=== PATIENT | female | born 1975 | race African-American/Black ===

== ENCOUNTER 2019-09-26 08:14 | Outpatient (CLI) | payer BC, SELFPAY ==
--- NOTE | ~2019-09-26 | MR_ITS ---
EXAMINATION: MR cervical spine wo/w con DATE: 09/26/2019 10:31 INDICATION: Postlaminectomy syndrome. Cervical spondylosis. Paresthesias of skin. TECHNIQUE: Magnetic resonance imaging (MRI) of the cervical spine was performed without and with 20 m L MultiHance intravenous contrast. Sequences included sagittal and axial T2-weighted FSE, sagittal ST IR FSE, and sagittal and axial T1-weighted FSE. Postcontrast sequences included sagittal and axial T1 -weighted FS FSE. COMPARISON: None FINDINGS: There is 2 mm retrolisthesis of C2 on C3, C4 on C5, and C5 on C6. Vertebral body heights ar e normal. There is mildly decreased disc height at C4-C5 and moderately decreased disc height at C5-C 6. There are multiple lesions of increased T2-weighted signal intensity in the spinal cord from C2 to C5, right worse than left, consistent with myelomalacia. There is likely ossification of posterior l ongitudinal ligament from C2 to C6. There are laminectomies from C3 to C6. Metal artifact posterior t o the lateral masses from C3 to C6 are likely changes of posterior fusion procedure with lateral mass screws. The following disc levels are specifically discussed: C2-C3: The disc is bulging. There is mild bilateral uncovertebral joint osteoarthritis. There is mild bilateral facet joint osteoarthritis. There is no neural foraminal stenosis. There is mild central c anal stenosis. C3-C4: There is a central extrusion. There is mild bilateral uncovertebral joint osteoarthritis. Ther e is no facet joint hypertrophy. There is no neural foraminal stenosis. There is mild central canal s tenosis with posterior decompression. C4-C5: The disc is bulging. There is moderate right and severe left uncovertebral joint osteoarthriti s. There is mild bilateral facet joint hypertrophy. There is mild bilateral neural foraminal stenosis . There is mild central canal stenosis with posterior decompression. C5-C6: The disc is bulging. There is moderate bilateral uncovertebral joint osteoarthritis. There is mild bilateral facet joint hypertrophy. There is mild left neural foraminal stenosis. There is mild c entral canal stenosis with posterior decompression. C6-C7: The disc is bulging. There is mild bilateral uncovertebral joint osteoarthritis. There is mild right and moderate left facet joint hypertrophy. There is mild bilateral neural foraminal stenosis. There is mild central canal stenosis. C7-T1: The disc does not extend beyond the endplate margin. There is no uncovertebral joint osteoarth ritis. There is mild bilateral facet joint osteoarthritis. There is no neural foraminal stenosis. The re is no central canal stenosis. IMPRESSION: 1. Multifocal myelomalacia in cervical spinal cord. 2. Moderate cervical spondylosis. 3. Metal artifact posterior to the lateral masses from C3 to C6 that may be changes of posterior fusi on procedure. Reviewed, dictated and finalized at location A. IMPRESSION: 1. Multifocal myelomalacia in cervical spinal cord. 2. Moderate cervical spondylosis. 3. Metal artifact posterior to the lateral masses from C3 to C6 that may be marcus nges of posterior fusion procedure.
[2019-09-26 09:48] LABS: Estimated Glomerular Filt Rate > 60
== END 2019-09-26 08:15 | disposition home or self-care (01) ==
PROVIDERS: PCP Family Medicine
DX: M96.1 Postlaminectomy syndrome, not elsewhere classified (principal); M51.16 Intervertebral disc disorders with radiculopathy, lumbar region; R20.2 Paresthesia of skin; M47.816 Spondylosis without myelopathy or radiculopathy, lumbar region; M47.817 Spondylosis without myelopathy or radiculopathy, lumbosacral region; M50.123 Cervical disc disorder at C6-C7 level with radiculopathy; M19.011 Primary osteoarthritis, right shoulder; G95.89 Other specified diseases of spinal cord; M47.812 Spondylosis without myelopathy or radiculopathy, cervical region; Z98.1 Arthrodesis status
CPT/HCPCS: 36415; 72156; A9577

== ENCOUNTER 2019-09-28 08:14 | Outpatient (CLI) | payer BC, SELFPAY ==
--- NOTE | ~2019-09-28 | MR_ITS ---
EXAMINATION: MR lumbar spine wo/w con EXAM DATE: 09/28/2019 09:40 INDICATION: Postlaminectomy syndrome. Low back pain. Difficulty walking. Right-sided spasms. TECHNIQUE: Multi-sequential, multiplanar MR images of the lumbar spine were obtained without contrast . Sagittal T1, T2, T2 fat saturation images. Axial T2 weighted images. Axial T1 weighted sequence. Patient was then injected with 20 mL Multihance intravenous contrast and reimaged. Postcontrast axi al and sagittal T1-weighted fat saturation sequences were obtained. There are no prior studies for co mparison. FINDINGS: Moderate disc disease at L4-5, mild to moderate at L1-2 and L5-S1. There are no areas of ab normal enhancement on the post contrast images. There is a 7 mm sclerotic focus in T2, probably bone island. Endplate degenerative signal change at L4-5. There is 5 mm retrolisthesis L5 on S1. The conus medullaris terminates at the L1 level and has normal signal intensity and morphology. Paraspinal so ft tissue is unremarkable. Level by level evaluation: T12-L1: Disc does not extend beyond the endplate margin. Facet arthropathy: Mild to moderate left, mild right. Neural foraminal stenosis: Mild to moderate left. Central canal stenosis: No stenosis. L1-L2: There is a mild diffuse disc bulge. Facet arthropathy: Mild to moderate. Neural foraminal stenosis: Mild bilateral. Central canal stenosis: Mild. L2-L3: There is a minimal diffuse disc bulge. Facet arthropathy: Mild to moderate. Neural foraminal stenosis: No stenosis. Central canal stenosis: No stenosis. L3-L4: There is a mild to moderate diffuse disc bulge. Facet arthropathy: Moderate bilateral. Neural foraminal stenosis: Mild to moderate left, mild right. Central canal stenosis: Mild to moderate. L4-L5: There is a large diffuse disc bulge with superimposed large central extrusion, inferior migrat ion. Facet arthropathy: Moderate. Neural foraminal stenosis: Moderate bilateral. Central canal stenosis: Moderate. Some bilateral lateral recess narrowing. L5-S1: There is a large diffuse disc bulge with superimposed left central extrusion. Facet arthropathy: Moderate left, mild to moderate right. Neural foraminal stenosis: Moderate to severe bilateral, right greater than left. Central canal stenosis: Mild to moderate. IMPRESSION: 1. Lower lumbar spondylosis, with neural foramen most narrowed at L5-S1. 2. Large lower lumbar disc bulges and sizable L4-5 extrusion. Reviewed, dictated and finalized at location A.
== END 2019-09-28 08:15 | disposition home or self-care (01) ==
PROVIDERS: PCP Family Medicine
DX: M96.1 Postlaminectomy syndrome, not elsewhere classified (principal); M51.16 Intervertebral disc disorders with radiculopathy, lumbar region; R20.2 Paresthesia of skin; M47.816 Spondylosis without myelopathy or radiculopathy, lumbar region; M47.817 Spondylosis without myelopathy or radiculopathy, lumbosacral region
CPT/HCPCS: 72158; A9577

== ENCOUNTER 2020-02-22 10:08 | Emergency (ER) | payer BC, SELFPAY ==
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
[2020-02-22 10:19] VITALS: BP 141/83; PULSE 65; RESP 16; TEMP 36.9; O2SAT 99
--- NOTE | 2020-02-22 10:53 | PC.NURSE ---
wound cleansed gently with NS , silvadene applied (would not scan) non stick dressing applied with small kerlex and coban. pt continues to deny pain. wound care instructions given.
== END 2020-02-22 10:58 | disposition home or self-care (01) ==
PROVIDERS: Emergency Provider Nurse Practitioner Family
DX: T23.211A Burn of second degree of right thumb (nail), initial encounter (principal); X19.XXXA Contact with other heat and hot substances, initial encounter; Z86.718 Personal history of other venous thrombosis and embolism; I10 Essential (primary) hypertension; Z86.711 Personal history of pulmonary embolism; E11.9 Type 2 diabetes mellitus without complications
CPT/HCPCS: 16020; 99213; A9270; G0463

== ENCOUNTER 2020-05-08 11:00 | Outpatient (RCR) | payer BC, SELFPAY ==
--- NOTE | 2020-02-09 10:04 | PTOPEVAL ---
INITIAL PHYSICAL THERAPY EVALUATION and PLAN OF CARE Thank you for referring Varsha Epperson to [facility].? Varsha is scheduled to be seen for physical therapy? 2x/week for 4 weeks. Please review, sign, date and return this plan of care MERY. I agree with and certify that the following plan of care is medically necessary. Referring Physician Date Admitting Provider: Attending Provider: Umm Maguire MD Referring Provider: *PT Outpatient Evaluation Start: 02/09/20 08:40 Freq: Status: Active Protocol: Document 02/09/20 08:30 RAFI (Rec: 02/09/20 09:55 RAFI [id number]) Therapy Assessment Status Assessment Status Assessment Status Evaluation Outpatient Past Medical History Past Medical History Source of Past Medical History Patient Neurological History Hx Other Neurological Disorders Yes: R sided weakness since spinal surgery 2017 Cardiovascular History Hx Cardiac Disorders No Significant History Respiratory History Hx Respiratory Disorders No Significant History Gastrointestinal History Hx Gastrointestinal Disorders No Significant History Genitourinary History Hx Genitourinary Disorders No Significant History Musculoskeletal History Hx Spinal Surgery Yes: cervical fusion C2-7 2018 Endocrine History Hx Endocrine Disorders No Significant History Evaluation Information Problem Diagnosis R neck pain with R UE after cervical fusion with CRPS II R UE Onset 2018 Subjective Information Varsha stated that she had Query Text:As Reported By Patient/ several years of low back and Family neck pain - Underwent C2-C7 cervical fusion for spinal cord compression. Varsha reports waking up and felt R UE paralysized on the R side. In patient rehab, home therapy and out patient therapy - combination of PT and OT since 2018 at various sites. Will have tightness in R upper trapezius, up back of neck, runs into the head - stabbing pain, increase in tightness can cause headaches. Sleeping - disturbed - difficulty getting comfortable and staying comfortable. Mornings - sore - but then gets a little better. Prolonged positioning - doesn'
--- NOTE | 2020-02-09 11:44 | OTOPEVAL ---
OCCUPATIONAL THERAPY EVALUATION REPORT 02/09/2020 Thank you for referring Varsha Epperson to [facility].? The patient is scheduled to be seen for occupational therapy? 2x/week for 4 weeks. Plan 1x/week aquatic and 1x/week land treatment. Please review, sign, date and return this plan of care MERY. I agree with and certify that the following plan of care is medically necessary. Referring Physician Date Referring Provider: Umm Maguire MD *OT Outpatient Evaluation Therapy Assessment Status Assessment Status Assessment Status Evaluation Outpatient Past Medical History Past Medical History Source of Past Medical History Patient Neurological History Hx Other Neurological Disorders Yes: R sided weakness since spinal surgery 2018 Cardiovascular History Hx Cardiac Disorders No Significant History Respiratory History Hx Respiratory Disorders No Significant History Gastrointestinal History Hx Gastrointestinal Disorders No Significant History Genitourinary History Hx Genitourinary Disorders No Significant History Musculoskeletal History Hx Spinal Surgery Yes: cervical fusion C2-7 2018 Endocrine History Hx Endocrine Disorders No Significant History Evaluation Information Problem Diagnosis R UE pain after cervical fusion with CRPS II R UE Onset 2018 Subjective Information Patient underwent C2-C7 Query Text:As Reported By Patient/ cervical fusion for spinal Family cord compression. Varsha reports waking up and felt R UE paralysed on the R side. She is s/p patient rehab, home therapy and several bouts of out patient therapy - combination of PT and OT since 2018 at various sites. She reports that she will have tightness her neck and arm with use - stabbing pain, increase in tightness and sensations of burning. Patient reports difficulties with using her right hand to open/unlock her door as she is unable to use her fingertips to do so. She also reports difficulties with using the right hand to pinch and manipulate zippers, buttons, and small objects. She states that her ability to write and type with the right had is
--- NOTE | 2020-03-15 18:03 | PTOPEVAL ---
PHYSICAL THERAPY RE-EVALUATION and UPDATED PLAN OF CARE Thank you for referring Varsha Epperson to [facility].? Varsha is scheduled to be seen for physical therapy? 2x/week for 4 weeks. Please review, sign, date and return this plan of care MERY. I agree with and certify that the following plan of care is medically necessary. Referring Physician Date Admitting Provider: Attending Provider: Umm Maguire MD Referring Provider: *PT Outpatient Evaluation Start: 02/09/20 08:40 Freq: Status: Active Protocol: Document 03/15/20 10:30 RAFI (Rec: 03/15/20 11:07 RAFI [id number]) Therapy Assessment Status Assessment Status Assessment Status Re-evaluation Evaluation Information Problem Subjective Information Varsha reports that usually Query Text:As Reported By Patient/ upon waking for the day R Family shoulder/neck pain is reduced - sometimes no pain. But as she gets up and moves around then discomfort returns. She feels the relief of discomfort with R upper trapezius and neck is 40-50% improved. She still has the numb spots. Headaches have decreased to every other day rather than every day. She feels that her shoulder complex can move easier now - that it feels looser. Pulling sensation at her incision isn't as tight either. Pain Assessment Timing of Pain Assessment Timing of Pain Assessment Assessment Pain Scale Pain Scale Used Numeric (1 - 10) Self Report Pain Assessment Posterior Neck Reported Pain Level 5 Pain Description Aching,Sharp,Tightness Pain Frequency Chronic Lowest Pain Intensity 5 Greatest Pain Intensity 8 Pain Aggravating Factors ADL's Other Pain Aggravating Factors movement - activities with R UE Pain Score Pain Score 5: Self Report Interventions Used Interventions Used By Clinicians Mobilization,Manual Therapy Techniques,Myofascial Release Cervical and Lumbar ROM Cervical ROM Cervical Flexion (0-60) 45 Query Text:Active in Degrees Cervical Extension (0-70) 15 Query Text:Active in Degrees Cervical Lateral Flexion Right (0-50) 25 Query Text:Active in Degrees Cervical Lateral Flexion Left (0-50) 25 Query Text:Active in Degrees Cervical Rotation Right (0-90)
--- NOTE | 2020-03-19 08:15 | PCOTNOTE ---
Patient cancelled today's re-evaluation and rescheduled to later this week.
--- NOTE | 2020-03-21 11:40 | OTOPEVAL ---
OCCUPATIONAL THERAPY RE-EVALUATION REPORT 03/21/2020 Varsha is making improvements with functional ROM, strength, and coordination of the right hand. Continued skilled OT indicated for continued aquatic sessions for CRPS and land sessions for strengthening and progressing fine motor activities. Due to needing an insurance authorization after 3 more visits, patient is scheduled for next week only - 1x land and 1x aquatic, then the third visit will be the re-evaluation. Will be resubmitting another progress report in about 2 weeks. Thank you for referring Varsha Epperson to [facility].? The patient is scheduled to be seen for therapy? 2x/week for 1 weeks. Please review, sign, date and return this plan of care MERY. I agree with and certify that the following plan of care is medically necessary. Referring Physician Date Attending Provider: Umm Maguire MD Referring Provider: Umm Maguire MD *OT Outpatient Re-Evaluation Evaluation Information Problem Diagnosis R UE pain after cervical fusion with CRPS II R UE Onset 2017 Subjective Information Patient reports that her right Query Text:As Reported By Patient/ forearm and hand continues to Family have burning sensation when the hand is agitated with use. She feels as though her sensation is improving in her ring finger and that her sensitivity has decreased. Functionally she states her handwriting improved from 50% normal to 75% normal. Pain Assessment Timing of Pain Assessment Timing of Pain Assessment Re-assessment Pain Scale Pain Scale Used Numeric (1 - 10) Self Report Pain Assessment Right Hand(s) Reported Pain Level 5 Pain Description Burning,Tightness Lowest Pain Intensity 0 Greatest Pain Intensity 10 Pain Score Pain Score 5: Self Report Additional Pain Score Comments Patient reports an overall reduction in the pain in her right arm/hand. She notes only one instance of her pain reaching 10/10 since beginning therapy. Interventions Used Interventions Used By Clinicians Exercise,Heat Upper Extremity Range of Motion Wrist Range of Motion Right Wrist Flexion - Active 70 Wrist Extension - Active 73 Wrist Radial Deviation - Active 25 Wrist Ulnar Deviation - Active 40 Wrist Range of Motion Comments Extension improved 13* RD improved 10* UD improved 10* (R) wrist AROM returned to normal limits Hyman
--- NOTE | 2020-04-05 16:17 | OTOPEVAL ---
OCCUPATIONAL THERAPY RE-EVALUATION REPORT 04/05/2020 Thank you for referring Varsha Epperson to [facility].?Varsha is making improvements with functional ROM, strength, and coordination of the right wrist and hand. She continues to have functional deficits due to recurring stiffness, nerve pain, and impaired sensation. Continued skilled OT indicated for continued aquatic sessions for CRPS and land sessions for strengthening and progressing fine motor activities. The patient is scheduled to be seen for therapy? 2x/week for 6 weeks. Plan 1x/week land and 1x/week aquatic sessions. Please review, sign, date and return this plan of care MERY. I agree with and certify that the following plan of care is medically necessary. Referring Physician Date Referring Provider: Umm Maguire MD *OT Outpatient Re-valuation Evaluation Information Problem Diagnosis R UE pain after cervical fusion with CRPS II R UE Onset 2017 Subjective Information Patient reports that her right Query Text:As Reported By Patient/ forearm and hand continues to Family have burning sensation when the hand is agitated with use. She feels as though her sensation is improving in her ring finger and that her sensitivity has decreased. Functionally she states her handwriting improved from 50% normal to 75% normal. She also notes improved ability to use/cut onions and peppers with a knife with the right hand. She states she feels more coordinated to use the right hand and wrist to use a spatua, tow picker and manipulate coins, and turning keys in her ignition. Pain Assessment Timing of Pain Assessment Timing of Pain Assessment Re-assessment Pain Scale Pain Scale Used Numeric (1 - 10) Self Report Pain Assessment Right Hand(s) Reported Pain Level 4 Pain Description Burning,Tightness,Tingling Lowest Pain Intensity 2 Greatest Pain Intensity 8 Pain Aggravating Factors ADL's,Exercise/Activity Pain Score Pain Score 4: Self Report Interventions Used Interventions Used By Clinicians Heat,Rest Upper Extremity Range of Motion Elbow/Forearm Range of Motion Bilateral Reason Not Measured WNL/Left,WNL/Right Elbow/Forearm Range of Motion Comments Bilat UEs are symmetrical with elbow AROM. Wrist Range of Motion Right Wrist Flexion - Active 70 Wrist Extension - Active
--- NOTE | 2020-04-05 16:47 | PTOPEVAL ---
PHYSICAL THERAPY RE-EVALUATION and UPDATED PLAN OF CARE Thank you for referring Varsha Epperson to [facility].? Varsha has made progress in PT but has not fully reached goals set. She is scheduled to be seen for physical therapy? 2x/week for 6 weeks. Please review, sign, date and return this plan of care MERY. I agree with and certify that the following plan of care is medically necessary. Referring Physician Date Admitting Provider: Attending Provider: Umm Maguire MD Referring Provider: *PT Outpatient Evaluation Start: 02/09/20 08:40 Freq: Status: Active Protocol: Document 04/05/20 14:32 RAFI (Rec: 04/05/20 15:34 RAFI [id number]) Therapy Assessment Status Assessment Status Assessment Status Re-evaluation Evaluation Information Problem Subjective Information Varsha reports during the week Query Text:As Reported By Patient/ of no PT - increase in R Family upper quadrant tightness returned. She did try to do some of the soft tissue techniques to the anterior shoulder region but not as effective. Did try supportive technique with pillows - does help as long she doesn't move . Headaches still traveling up R side of neck into frontal aspect of head then over into L ear with a popping sound. Headaches are still improved - rather 3-4 times/day, 1-2 times/day. Karina reports to tenderness at - points to long head of biceps tendon and supraspinatus tendon. Incision area posterior neck - is fine but still increase in R paraspinal cervical musculature as well as R upper trapezius musculature. Continues to perform previous HEP. Pain Assessment Timing of Pain Assessment Timing of Pain Assessment Assessment Pain Scale Pain Scale Used Numeric (1 - 10) Self Report Pain Assessment Posterior Neck Reported Pain Level 5 Lowest Pain Intensity 1 Greatest Pain Intensity 8 Pain Score Pain Score 5: Self Report Interventions Used Interventions Used By Clinicians Manual Therapy Techniques Cervical and Lumbar ROM Cervical ROM Cervical Flexion (0-60) 45 Query Text:Active in Degrees
--- NOTE | 2020-04-09 10:15 | PCPTNOTE ---
Patient cancelled due to fear of covid.
--- NOTE | 2020-04-17 11:34 | PCPTNOTE ---
Patient called & cancelled scheduled appointment this date till 04/26/2020 due to appealing insurance visits and hoping to have resolved in the next two weeks.
--- NOTE | 2020-05-09 12:48 | PCOTNOTE ---
This treatment is being continued on visit number [id number]. Please see documentation on both accounts to view progress. Completed interventions, outcomes, and problems have been marked as Inactive to facilitate the copying of the Care plan routine for recurring accounts.
== END 2020-05-09 12:42 | disposition home or self-care (01) ==
LOC: ANHPT 11:00
PROVIDERS: PCP Family Medicine; Visit Provider Physical Medicine & Rehabilitation Pain Medicine
DX: M54.2 Cervicalgia (principal)
CPT/HCPCS: 97110; 97113; 97140; 97162; 97166; 97530

== ENCOUNTER 2020-05-15 09:00 | Outpatient (RCR) | payer BC, SELFPAY ==
--- NOTE | 2020-05-09 12:48 | PCOTNOTE ---
The treatment documented on this account is a continuation of the treatment documented on visit number [id number]. Please see documentation on both accounts to view progress. The Plan of Care has been transitioned and updated within the new V#. I have addressed and agree with the discipline specific Problems, Interventions, and Goals for the current certification period. Completed interventions, outcomes, and problems have been marked as Inactive to facilitate the copying of the Care plan routine for recurring accounts.
--- NOTE | 2020-05-10 15:09 | PTOPEVAL ---
PHYSICAL THERAPY RE-EVALUATION and UPDATED PLAN OF CARE. Thank you for referring Varsha Epperson to [facility].? Varsha is scheduled to be seen for physical therapy? 2x/week for 6 weeks. Please review, sign, date and return this plan of care MERY. I agree with and certify that the following plan of care is medically necessary. Referring Physician Date Admitting Provider: Attending Provider: Umm Maguire MD Referring Provider: *PT Outpatient Evaluation Start: 05/10/20 11:06 Freq: Status: Active Protocol: Document 05/10/20 11:03 RAFI (Rec: 05/10/20 12:03 RAFI [id number]) Therapy Assessment Status Assessment Status Assessment Status Re-evaluation Evaluation Information Problem Subjective Information Varsha states that headaches Query Text:As Reported By Patient/ are worse again - having them Family on a daily basis now. Still having pulling sensation from R anterior pectoralis, into axilla region, then up back to R side of cervical incision. Sleeping has been difficult due to increase pain. Did do better with increase support of UE's when lying on back. Was able to receive some relief after treatment on Thursday, otherwise her symptoms have worsened again with the lack of PT. Pain Assessment Timing of Pain Assessment Timing of Pain Assessment Assessment Pain Scale Pain Scale Used Numeric (1 - 10) Self Report Pain Assessment Posterior Neck Reported Pain Level 8 Radicular Pain Location R upper quadrant region Pain Frequency Chronic Lowest Pain Intensity 3 Greatest Pain Intensity 10 Pain Score Pain Score 8: Self Report Interventions Used Interventions Used By Clinicians Manual Therapy Techniques Cervical and Lumbar ROM Cervical ROM Cervical Flexion (0-60) 40 Query Text:Active in Degrees Cervical Extension (0-70) 20 Query Text:Active in Degrees Cervical Lateral Flexion Right (0-50) 20 Query Text:Active in Degrees Cervical Lateral Flexion Left (0-50) 25 Query Text:Active in Degrees Cervical Rotation Right (0-90) 45 Query Text:Active in Degrees Cervical Rotation Left (0-90) 45 Query Text:Active in Degrees Posture Posture Standing Position Posture Evaluation View posterior, anterior, lateral Head/C-Spine Posture Forward Head Thoracic Spine Posture Neutral
--- NOTE | 2020-05-15 09:50 | OTOPEVAL ---
OCCUPATIONAL THERAPY RE-EVALUATION REPORT 05/15/2020 Thank you for referring Varsha Epperson to [facility].? The patient is scheduled to be seen for continued occupational therapy? 1x/week for 6 weeks. Please review, sign, date and return this plan of care MERY. I agree with and certify that the following plan of care is medically necessary. 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 She notes that her handwriting has gotten better, but she has difficulties with writing more than a paragraph and has to take breaks. She also notes that due to gaps in therapy there have been days where her pain was so limiting that she was unable to get out of bed. Pain Assessment Timing of Pain Assessment Timing of Pain Assessment Re-assessment Pain Scale Pain Scale Used Numeric (1 - 10) Self Report Pain Assessment Right Hand(s) Reported Pain Level 7 Pain Description Tightness,Tingling Pain Frequency Chronic,Continuous Lowest Pain Intensity 3 Greatest Pain Intensity 10 Posterior Neck Reported Pain Level 0 Pain Description Pulling,Tightness Pain Score Pain Score 0,7: Self Report Interventions Used Interventions Used By Clinicians Rest Upper Extremity Range of Motion Elbow/Forearm Range of Motion Right Reason Not Measured WNL/Right Wrist Range of Motion Right Wrist Flexion - Active 65 Wrist Extension - Active 70 Wrist Radial Deviation - Active 25 Wrist Ulnar Deviation - Active 35 Wrist Range of Motion Comments Wrist AROM returned to normal limits. Finger Range of Motion Right Reason Not Measured WNL/Right Thumb Range of Motion Right Reason Not Measured WNL/Right Upper Extremity Muscle Strength Testing Elbow/Forearm Right Elbow Flexion Strength 4+ Good + Elbow Extension Strength 4- Good - Forearm Pronation Strength 4 Good Forearm Supination Strength 4 Good Wrist Strength Right Wrist Flexion Strength 4 Good
--- NOTE | 2020-06-14 09:15 | PCPTNOTE ---
PHYSICAL THERAPY DISCHARGE SUMMARY Admitting Provider: Attending Provider: Umm Maguire MD Patient:Varsha Epperson Date of :1975 Varsha has not returned for any further treatments since 05/10/2020, therefore she will be discharged at this time. Patient?s initial visit was on 02/09/2020 10:00 and she had a total of 14 visits. Her visits were limited by insurance authorization. Her end of treatment status is as per 05/10/2020 re evaluation note. The goals have been partially met. Thank you for referring Varsha to [facility]. Please review, sign, date and return this discharge summary MERY. I have been updated about Varsha's current status and I agree with discharge from the above service at this time. Referring Physician Date
--- NOTE | 2020-06-19 11:35 | PCOTNOTE ---
OCCUPATIONAL THERAPY DISCHARGE NOTE 06/19/20 Attending Provider: Umm Maguire MD Patient:Varsha Epperson Date of :1975 Patient has not returned for any further treatments since 05/15/2020 due to insurance denying further treatment, therefore she will be discharged at this time. Patient?s initial visit was on 02/09/2020 and she had a total of 14 visits. The goals have been partially met. Thank you for referring this patient to [facility]. Please review, sign, date and return this discharge summary MERY. I have been updated about the patient's current status and I agree with discharge from the above service at this time. Referring Physician Date
== END 2020-06-19 13:31 | disposition home or self-care (01) ==
LOC: ANHOT 09:00
PROVIDERS: Visit Provider Physical Medicine & Rehabilitation Pain Medicine
DX: M54.2 Cervicalgia (principal)
CPT/HCPCS: 97110; 97140

== ENCOUNTER 2020-08-13 08:00 | Outpatient (RCR) | payer BC, SELFPAY ==
[2020-07-23 13:34] VITALS: BP_SYST 128
--- NOTE | 2020-07-23 13:45 | OTOPEVAL ---
OCCUPATIONAL THERAPY DISCHARGE 07/23/20 Varsha presents to outpatient OT for evaluation for cervical radiculopathy. She is familiar to this clinic as she was treated here last fall, but therapy ended due to insurance denial. Last re-evaluation was completed on May 15, 2020. Today's reassessment shows no significant changes in functional ROM or strength, with the exception of reduced active wrist extension. She has intact and functional strength of the elbow, forearm, wrist, and hand. She is also currently independent with stretching and strengthening the elbow, forearm, wrist, and hand. Residual deficits seem to stem from proximal impairments that will be addressed by PT at this clinic. Thank you for referring Varsha Epperson to [facility].? Please review, sign, date and return this D/C MERY. I agree with and certify that the following plan of care is medically necessary. Referring Physician Date Admitting Provider: Attending Provider: Lety Harris, LINDA Referring Provider: *OT Outpatient Evaluation Start: 07/23/20 12:39 Freq: Status: Active Protocol: Document 07/23/20 12:44 IVONE (Rec: 07/23/20 13:45 IVONE [email or web address]) Therapy Assessment Status Assessment Status Assessment Status Evaluation Outpatient Past Medical History Neurological History Hx Neurologic Surgery Yes Hx Other Neurological Disorders Yes: R sided weakness since spinal surgery 2018 Cardiovascular History Hx Deep Vein Thrombosis Yes Hx Hypertension Yes Respiratory History Hx Respiratory Disorders No Significant History Gastrointestinal History Hx Gastrointestinal Disorders No Significant History Genitourinary History Hx Genitourinary Disorders No Significant History Musculoskeletal History Hx Spinal Surgery Yes: cervical fusion C2-7 2018 Endocrine History Hx Endocrine Disorders No Significant History Evaluation Information Problem Diagnosis Cervical Radiculopathy Additional Evaluation Detail Radiculopathy since cervical fusion C2-7 in September of 2017 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 She reports difficulties using the right hand to write, stating that if she tries to write for long periods of time , her hand pérez and shakes. Difficulties also noted with typing as she cannot feel the keys under the fingers of her right hand; peeling potatoes;
--- NOTE | 2020-07-23 14:57 | PTOPEVAL ---
Thank you for referring Varsha Epperson to [facility].? The patient is scheduled to be seen for therapy? 2 x/week for 6 weeks. Please review, sign, date and return this plan of care MERY. I agree with and certify that the following plan of care is medically necessary. Referring Physician Date Attending Provider: Lety Harris, PA Physical Therapy Evaluation Hx Spinal Surgery Yes: cervical fusion C2-7 2018 Diagnosis cervical radiculopathy Additional Evaluation Detail She was in actue rehab after her cervical fusion due to loss of strength and sensation of right arm and leg. She has received extensive therapy to address her limitations. She has osvaldo's for home. home program for scap retraction, shoulder flex with green band Subjective Information She has been having neck and Query Text:As Reported By Patient/ right UE pain and symptoms Family since 2018. She has tightness and muscle tightness of pectoralis muscles and right shoulder muscles. She remains limited with right shoulder and range of right arm. States her right side is tight because she is not receiving myofascial release treatment. 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 She has adaptive equipment at home for ADL's. She states she is unable to tolerate her exercises due to the pain. Previous Treatments Previous Treatments For This Problem yes a few months ago Pain Assessment Timing of Pain Assessment Timing of Pain Assessment Assessment Pain Scale Pain Scale Used Numeric (1 - 10) Self Report Pain Assessment Right Neck Reported Pain Level 9 Pain Description Aching,Burning,Tightness Pain Frequency Chronic,Continuous Lowest Pain Intensity 7 Greatest Pain Intensity 10 Pain Aggravating Factors ADL's,Exercise/Activity, Lifting Pain Behaviors Anxious Right Arm(s) Reported Pain Level 9 Pain Description Aching,Burning,Tightness Radicular Pain Location right hand Pain Frequency Chronic,Continuous
[2020-08-08 11:13] VITALS: BP_SYST 130
--- NOTE | 2020-08-09 11:53 | PTOPEVAL ---
Thank you for referring Varsha Epperson to [facility].? The patient is scheduled to be seen for therapy? 2x/week for 6 weeks. Please review, sign, date and return this plan of care MERY. I agree with and certify that the following plan of care is medically necessary. Referring Physician Date Attending Provider: Lety Harris, PA *PT Outpatient Evaluation Start: 07/23/20 13:19 Freq: Status: Active Protocol: Document 08/08/20 11:13 [facility] (Rec: 08/09/20 11:52 [facility] [email or web address]) Therapy Assessment Status Assessment Status Assessment Status Progress Pain Assessment Timing of Pain Assessment Timing of Pain Assessment Re-assessment Pain Scale Pain Scale Used Numeric (1 - 10) Self Report Pain Assessment Right Neck Reported Pain Level 6 Pain Description Spasms,Tightness Pain Frequency Continuous Other Pain Description also headache 5/10 Lowest Pain Intensity 4 Greatest Pain Intensity 10 Pain Aggravating Factors ADL's,Exercise/Activity, Walking Pain Behaviors Guarding,Rigid Right Arm(s) Reported Pain Level 4 Pain Description Spasms Pain Aggravating Factors ADL's Right Shoulder(s) Reported Pain Level 4 Pain Description Tightness Pain Aggravating Factors ADL's,Exercise/Activity, Walking Right Hand(s) Reported Pain Level 4 Pain Description Tightness Pain Score Pain Score 6,4,4,4: Self Report Interventions Used Interventions Used By Clinicians Exercise,Mobilization,Manual Therapy Techniques,Myofascial Release Pain Relief Interventions Used By Exercise,Heat Patient Other Alleviating Interventions Pt reports she has a book of exercises. Cervical and Lumbar ROM Cervical ROM Cervical Flexion (0-60) 50 Query Text:Active in Degrees Cervical Extension (0-70) 10 Query Text:Active in Degrees Cervical Rotation Right (0-90) 35 Query Text:Active in Degrees Cervical Rotation Left (0-90) 30 Query Text:Active in Degrees Cervical ROM Comments No pain with motion this date but feels tightness and pressure at the bottom of the fusion. Lumbar ROM Lumbar Comments Pt is very rigid in her pelvic motion with gait and movement patterns. Upper Extremity Range of Motion Scapular/ Shoulder Range of Motion
--- NOTE | 2020-08-23 10:54 | PCPTNOTE ---
Pt sessions are on hold due to filing an appeal on the patient's behalf for denied visits.
--- NOTE | 2020-10-04 11:36 | PCPTNOTE ---
Admitting Provider: Attending Provider: Lety Harris, LINDA Patient:Varsha Epperson Date of :1975 Patient has not returned for any further treatments since 08/13/2020, therefore she will be discharged at this time. Patient?s initial visit was on 07/23/2020. She did not receive further insurance authorization despite appeals being filed. The goals have been partially met. Thank you for referring this patient to [facility]. Please review, sign, date and return this discharge summary MERY. I have been updated about the patient's current status and I agree with discharge from the above service at this time. Referring Physician Date
== END 2020-10-08 10:06 | disposition home or self-care (01) ==
LOC: ANHPT 08:00
PROVIDERS: PCP Physician Assistant; Visit Provider Physician Assistant
DX: M54.12 Radiculopathy, cervical region (principal)
CPT/HCPCS: 97110; 97140; 97163; 97166

== ENCOUNTER 2020-10-19 15:21 | Outpatient (CLI) | payer BC, SELFPAY ==
--- NOTE | ~2020-10-19 | XR_ITS ---
EXAMINATION: XR shoulder RT min 2V DATE: 10/19/2020 15:40 INDICATION: Right shoulder pain. TECHNIQUE: 4 views of right shoulder were obtained. COMPARISON: None. FINDINGS: Bone alignment is normal. No fracture. There is moderate osteoarthritis of glenohumeral cesar nt and acromioclavicular joint. There are changes of posterior fusion procedure in cervical spine. IMPRESSION: 1. Polyarticular osteoarthritis. Reviewed, dictated and finalized at location A.
== END 2020-10-19 15:22 | disposition home or self-care (01) ==
LOC: ANHIMG 15:26
PROVIDERS: PCP Physician Assistant; Visit Provider Physician Assistant
DX: M19.011 Primary osteoarthritis, right shoulder (principal)
CPT/HCPCS: 73030

== ENCOUNTER 2020-11-12 14:32 | Outpatient (CLI) | payer BC, SELFPAY ==
--- NOTE | ~2020-11-12 | US_ITS ---
EXAMINATION: US pelvic complete w TV EXAM DATE: 11/12/2020 15:41 INDICATION: Fibroid uterus. TECHNIQUE: Pelvic transabdominal and transvaginal sonogram was performed. There are multiple graysca le and Doppler images available for interpretation. There is no prior study for comparison. FINDINGS: Uterus measures 11.0 x 6.2 x 5.4 cm, with a fibroid measuring about 3 cm near the fundus. Endometrial stripe measures 10 mm, within normal limits. There are nabothian cysts. There is trace free pelvic fluid. Right adnexa: The ovary measures 5.9 x 3.2 x 3.0 cm, mildly enlarged with several cysts which are pro bably physiologic.. Ovarian vascular flow confirmed. Left adnexa: The ovary measures 2.6 x 2.1 x 2.5 cm and is morphologically normal. Ovarian vascular fl ow confirmed. IMPRESSION: 1. Single 3 cm fibroid identified. 2. Mildly enlarged right ovary probably due to physiologic cysts. Reviewed, dictated and finalized at location A.
== END 2020-11-12 14:33 | disposition home or self-care (01) ==
LOC: ANHIMG 14:35
PROVIDERS: PCP Physician Assistant; Visit Provider Physician Assistant
DX: D25.9 Leiomyoma of uterus, unspecified (principal)
CPT/HCPCS: 76830; 76856

== ENCOUNTER 2021-06-11 20:42 | Emergency (ER) | payer OTHER, SELFPAY ==
--- NOTE | ~2021-06-11 | XR_ITS ---
XR chest 2V DATE: 06/11/2021 21:01 INDICATION: Left chest pain, left arm numbness/tingling TECHNIQUE: PA and lateral views COMPARISON: None FINDINGS: Normal heart size. No hilar or mediastinal enlargement. No pulmonary infiltrate or consolidation, pleural effusion or pulmonary vascular congestion or pneumo thorax. Posterior lower cervical spine surgical fusion. Surgical clips, right upper quadrant, likely due to cholecystectomy. IVC filter device. IMPRESSION: No active cardiac pulmonary disease Reviewed, dictated and finalized at location A. RACT ADMIN
--- NOTE | 2021-06-11 20:43 | ECG_ITS ---
Measurements Intervals [place] Rate: 86 P: 66 CA: 176 QRS: 31 QRSD: 96 T: 37 QT: 355 QTc: 425 Interpretive Statements SINUS RHYTHM POSSIBLE LEFT ATRIAL ENLARGEMENT INCOMPLETE RIGHT BUNDLE BRANCH BLOCK MINIMAL Q WAVES- DIFFUSE LEADS BORDERLINE ECG Electronically Signed On 06-12-2021 6:24:32 PENSION AGENT by Caden Norwood D.O.
[2021-06-11 20:51] VITALS: BP 140/81; PULSE 94; RESP 17; TEMP 37.2; O2SAT 100
[2021-06-11 21:02] LABS: Basophils Percent Auto 0.6 % (0.2-1.2); Eosinophils Absolute Auto 0.2 K/mm3 (0-0.3); Eosinophils Percent Auto 2.7 % (0-4.4); Hematocrit 40.2 % (37.0-47.0); Hemoglobin 13.4 g/dL (12.0-15.0); Immature Granulocyte Absolute 0.02 K/mm3 (0.00-0.031); Immature Granulocyte Percent A 0.3 % (0-0.5); Lymphocytes Absolute Auto 1.35 K/mm3 (0.9-3.2); Lymphocytes Percent Auto 21.6 % (18.3-44.2); Mean Corpuscular HGB Conc 33.3 g/dl (32-36); Mean Corpuscular Hemoglobin 30.3 pg (26-34); Mean Platelet Volume 11.7 fl (7.4-10.4); Monocytes Absolute Auto 0.7 K/mm3 (0.1-0.6); Monocytes Percent Auto 11.7 % (2.6-8.5); Neutrophils Percent Auto 63.1 % (45.5-73.1); Platelet Count Result 148 k/mm3 (150-375); Red Blood Count 4.42 M/mm3 (4.2-5.4); Red Cell Distribution Width 13.4 % (11.5-14.5); White Blood Count 6.3 K/mm3 (4.5-10.0)
[2021-06-11 21:13] LABS: INR 1.4; Partial Thromboplastin Time 32.4 SECONDS (22.3-36.8); Prothrombin Time 16.6 Seconds (11.1-14.7)
[2021-06-11 21:14] LABS: Alanine Aminotransferase 28 U/L (4-35); Albumin Level 4.3 g/dL (3.5-5.1); Alkaline Phosphatase 73 U/L (38-126); Anion Gap 9 mmol/L (8-16); Aspartate Amino Transferase 35 U/L (14-36); Bilirubin,Total 0.8 mg/dL (0.2-1.3); Blood Urea Nitrogen 11 mg/dL (7-17); Calcium 8.7 mg/dL (8.4-10.2); Carbon Dioxide 26 mmol/L (22-30); Chloride 102 mmol/L (98-107); Estimated CRCL calculation 82 ml/min; Estimated Glomerular Filt Rate > 60; Glucose 133 mg/dL (65-110); Lipase 69 U/L (23-300); Potassium 3.6 mmol/L (3.4-5.0); Sodium 137 mmol/L (137-145)
[2021-06-11 21:26] LABS: Troponin I < 0.012 ng/mL (0.000-0.034)
--- NOTE | 2021-06-11 22:22 | PC.NURSE ---
Pt to the Intake desk and states Im going to leave . Pt ambulated to the exit with no difficulty
== END 2021-06-11 22:37 | disposition left against medical advice (07) ==
LOC: ANHED 22:35
PROVIDERS: Emergency Provider Emergency Medicine; PCP Physician Assistant
DX: R07.9 Chest pain, unspecified (principal)
CPT/HCPCS: 36415; 71046; 80053; 83690; 84484; 85025; 85610; 85730; 93005; 99199

== ENCOUNTER 2021-06-19 13:08 | Emergency (ER) | payer OTHER, SELFPAY ==
[2021-06-19 13:19] VITALS: BP 128/71; PULSE 63; RESP 16; TEMP 36.7; O2SAT 99
[2021-06-19 13:35] VITALS: BP 128/71; PULSE 63; RESP 16; TEMP 36.7; O2SAT 99
--- NOTE | 2021-06-19 13:44 | ED.EAR ---
HPI - Ear Problem General Chief complaint: Upper Respiratory Infection Stated complaint: sinus infection Source: patient and RN notes reviewed History of Present Illness HPI Narrative: This etc. same 45-year-old female who presented to urgent care with complaints right ear pain, temporal tenderness, and right eye redness. According to patient 3 days ago she started to experience sinus pressure and notes that she had clear mucus. Patient notes that she has had a sinus infection in the past with similar results. Tylenol and antihistamine medication with little relief. The patient denies SOB, CP, palpitation, extremity numbness, lightheadedness, dizziness, constipation, visual disturbance, auditory disturbance ,diarrhea, chills, or fever. Related Data Home Medications Medication Instructions Recorded Confirmed baclofen mg 02/22/20 cetirizine mg 02/22/20 ergocalciferol (vitamin D2) 02/22/20 [Vitamin D2] fluticasone propionate INTRANASAL 02/22/20 ketoconazole TOPICAL 02/22/20 montelukast mg 02/22/20 warfarin 02/22/20 warfarin 02/22/20 Allergies Allergy/AdvReac Type Severity Reaction Status Date / Time amoxicillin Allergy Intermediate Rash Verified 02/22/20 10:28 azithromycin [From Zithromax] Allergy Intermediate Rash Verified 02/22/20 10:28 Bleach (Sodium Hypochlorite) Allergy Intermediate Rash Verified 02/22/20 10:28 Review of Systems Review of Systems: A 14 organ system Review of Systems was performed and pertinent positives included in the HPI, otherwise remaining ROS is negative. 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 HEAD: normocephalic, atraumatic. Temporal tenderness EYES: Conjunctivitis. Vision is grossly intact. EARS: External ears normal, auditory canals clear and without drainage, TMs edema AND erythema without perforation. Hearing grossly intact. NOSE: External nose normal with no obvious nasal discharge, nares without redness, no rhinorrhea. THROAT: Mucous membranes moist, posterior pharynx clear. NECK: Neck supple, non-tender without lymphadenopathy, masses or thyromegaly. CARDIOVASCULAR: Regular rate and rhythm without murmurs, gallops, or rubs. RESPIRATORY: Clear to auscultation. Breath sounds equal bilaterally. No wheezes, rales, or rhonchi. GASTROINTESTINAL: Abdomen soft, non-tender, nondistended. Bowel sounds are active. No hepato-splenomegaly, or palpable masses. No guarding. SKIN: warm, intact with no suspicious lesions or rash, good texture and turgor. NEURO: awake, alert, and oriented to person, place and time. There were no obvious focal neurologic abnormalities. Steady gait EXTREMITIES: Normal range of motion. No edema. No calf tenderness. Negative Homans sign bilaterally. BACK: Nontender without deformity or cre
== END 2021-06-19 13:46 | disposition home or self-care (01) ==
PROVIDERS: Emergency Provider Nurse Practitioner; PCP Physician Assistant
DX: H66.90 Otitis media, unspecified, unspecified ear (principal); F17.210 Nicotine dependence, cigarettes, uncomplicated; F12.90 Cannabis use, unspecified, uncomplicated; E11.9 Type 2 diabetes mellitus without complications; I10 Essential (primary) hypertension; Z86.711 Personal history of pulmonary embolism; D75.9 Disease of blood and blood-forming organs, unspecified
CPT/HCPCS: 99213; G0463

== ENCOUNTER 2021-10-21 08:30 | Outpatient (RCR) | payer OTHER, SELFPAY ==
--- NOTE | 2021-07-23 08:50 | PTOPEVAL ---
PHYSICAL THERAPY EVALUATION and PLAN OF CARE Thank you for referring Varsha Epperson to [facility]Note 3[facility]? The patient is scheduled to be seen for therapy? 2x/week for 4-8 weeks. Please review, sign, date and return this plan of care MERY. I agree with and certify that the following plan of care is medically necessary. Referring Physician Date Attending Provider: Lety Harris, PA Evaluation Outpatient Past Medical History Neurological History Hx Neurologic Surgery Yes Hx Other Neurological Disorders Yes: R sided weakness since spinal surgery 2017 Cardiovascular History Hx Deep Vein Thrombosis Yes Hx Hypertension Yes Hx Other Cardiac Disorders Yes: ivc filter Respiratory History Hx Pulmonary Embolism Yes Gastrointestinal History Hx Gastrointestinal Disorders No Significant History Genitourinary History Hx Genitourinary Disorders No Significant History Musculoskeletal History Hx Spinal Surgery Yes: cervical fusion C2-7 2017 Endocrine History Hx Endocrine Disorders No Significant History Subjective Information Tells me that she had surgery Query Text:As Reported By Patient/ in 2018 she had surgery that Family paralyzed her whole right side . States she had to learn how to walk and use her right arm. Describes to me a situation in which she had increased tone of the right UE. She now is able to use her UE in a functional manner; however, there is a significant amount of pain in right shoulder, neck, and upper back. States that it feels like the right hand is being affected with having difficulty combing her hair, turning door knobs, etc. Previous Treatments Previous Treatments For This Problem physical therapy, massage therapy Self Report Pain Assessment Right Spine, Cervical Reported Pain Level 5 Pain Description Spasms,Tightness Pain Frequency Chronic,Continuous Lowest Pain Intensity 3 Greatest Pain Intensity 8 Pain Aggravating Factors Exercise/Activity Pain Behaviors None Pain Score Pain Score 5: Self Report Interventions Used Interventions Used By Clinicians Exercise,Heat,Manual Therapy Techniques,Myofascial Release Pain Relief Interventions Used By Exercise,Medication Patient Other Alleviating Interventions stretching Ce
--- NOTE | 2021-08-21 09:43 | PTOPEVAL ---
PHYSICAL THERAPY PROGRESS REPORT Thank you for referring Varsha Epperson to [facility] [place].? The patient is scheduled to be seen for therapy? 2x/week for 4 weeks. Please review, sign, date and return this plan of care MERY. I agree with and certify that the following plan of care is medically necessary. Referring Physician Date Attending Provider: Lety Harris, PA Progress Diagnosis neck pain, arm pain Subjective Information Today Varsha reports that she Query Text:As Reported By Patient/ feels like therapy is making Family progress. She appreciates that the right arm is able to move into elevation better and she feels like the right muscles are loosening and she feels stronger through her pec muscles. Wants to continue with therapy to continue working on muscles underneath the shoulder blade and arm. Functionally she still needs to be able to get off the floor without furniture assist and to be able to get things from high shelves without needing to ask for help. Self Report Pain Assessment Right Spine, Cervical Reported Pain Level 3 Pain Description Spasms,Tightness Interventions Used Interventions Used By Clinicians Exercise,Mobilization,Manual Therapy Techniques,Myofascial Release Cervical ROM Cervical Flexion (0-60) 40 Query Text:Active in Degrees Cervical Extension (0-70) 30 Query Text:Active in Degrees Cervical Rotation Right (0-90) 40 Query Text:Active in Degrees Cervical Rotation Left (0-90) 40 Query Text:Active in Degrees Cervical ROM Comments does have a cervical fusion that will limit some of the ROM Upper Extremity Range of Motion Scapular/ Shoulder Range of Motion Left Shoulder Flexion - Active 160 Shoulder Abduction - Active 160 Shoulder Medial Rotation - Active T12 Query Text:Reach Behind the Back Shoulder Lateral Rotation - Active 70 Right Shoulder Flexion - Active 145 Shoulder Abduction - Active 135 Shoulder Medial Rotation - Active iliac crest Query Text:Reach Behind the Back Shoulder Lateral Rotation - Active 61 Upper Extremity Muscle Strength Testing Scapular/Shoulder Bilateral Shoulder Flexion Strength 5 Normal Shoulder Abduction Strength 5 Normal Shoulder Medial
--- NOTE | 2021-09-19 09:46 | PTOPEVAL ---
PHYSICAL THERAPY PROGRESS REPORT Thank you for referring Varsha Epperson to [facility].? The patient is scheduled to be seen for therapy? 2x/week for 4 weeks. Please review, sign, date and return this plan of care MERY. I agree with and certify that the following plan of care is medically necessary. Referring Physician Date Attending Provider: Lety Harris, PA Progress Diagnosis neck pain, arm pain Subjective Information Continues to report that she Query Text:As Reported By Patient/ is feeling relief from therapy Family . She feels more movement in the right shoulder blade and the tightness under the right arm continues to decrease. States that she feels discomfort in the right arm that feels like tightness and pulling. Self Report Pain Assessment Right Spine, Cervical Reported Pain Level 4 Pain Description Spasms,Tightness Pain Frequency Chronic,Continuous Scapular/ Shoulder Range of Motion Left Shoulder Flexion - Active 160 Shoulder Abduction - Active 160 Shoulder Medial Rotation - Active T12 Query Text:Reach Behind the Back Shoulder Lateral Rotation - Active 70 Right Shoulder Flexion - Active 145 Shoulder Abduction - Active 145 Shoulder Medial Rotation - Active right PSSI Query Text:Reach Behind the Back Shoulder Lateral Rotation - Active 61 Upper Extremity Muscle Strength Testing Scapular/Shoulder Bilateral Shoulder Flexion Strength 5 Normal Shoulder Abduction Strength 5 Normal Shoulder Medial Rotation Strength 5 Normal Shoulder Lateral Rotation Strength 5 Normal Shoulder Strength Comments upper trapezius: R = 5/5, L = 5/5 right fire engineer: 54lb, left gip: 105lb/pressure --right hand had difficulty opening from fire engineer tip pinch right: 9lb/presure, lateral pinch: 10lb/pressure Palpation severe hypomobility of thoracic spine with little to no spinal mobility play to posterior to anterior mobilization; improved muscle and tissue quality of the following: right pectoralis major, serratus anterior, subscapularis, rhomboids, teres major and minor, and upper tr
--- NOTE | 2021-09-25 07:28 | PCPTNOTE ---
Patient called & cancelled scheduled appointment this date due to feeling unwell.
--- NOTE | 2021-10-03 08:12 | PCPTNOTE ---
Patient did not show up for scheduled appointment this date.
--- NOTE | 2021-10-17 08:40 | PCPTNOTE ---
Patient called to cancel appointment this date due to transportation issues.
--- NOTE | 2021-10-21 10:51 | PTOPEVAL ---
PHYSICAL THERAPY PROGRESS REPORT Thank you for referring Varsha Epperson to [facility].? The patient is scheduled to be seen for therapy? 2x/week for 4 weeks. Please review, sign, date and return this plan of care MERY. I agree with and certify that the following plan of care is medically necessary. Referring Physician Date Diagnosis neck pain, arm pain Subjective Information Overall feeling like she has Query Text:As Reported By Patient/ improvement and feeling Family progress. Feeling like her hand still has a glove on and she still feels hot and cold and pressure but the tingling is changing Self Report Pain Assessment Right Spine, Cervical Reported Pain Level 4 Pain Description Spasms,Tightness Pain Frequency Chronic,Continuous Pain Aggravating Factors Exercise/Activity Interventions Used By Clinicians Exercise,Mobilization,Manual Therapy Techniques Pain Relief Interventions Used By Exercise,Medication Patient Other Alleviating Interventions stretching Cervical and Lumbar ROM Cervical ROM Cervical Flexion (0-60) 40 Query Text:Active in Degrees Cervical Extension (0-70) 30 Query Text:Active in Degrees Cervical Rotation Right (0-90) 30 Query Text:Active in Degrees Cervical Rotation Left (0-90) 40 Query Text:Active in Degrees Cervical ROM Comments does have a cervical fusion that will limit some of the ROM Upper Extremity Range of Motion Scapular/ Shoulder Range of Motion Left Shoulder Flexion - Active 160 Shoulder Abduction - Active 160 Shoulder Medial Rotation - Active T12 Query Text:Reach Behind the Back Shoulder Lateral Rotation - Active 70 Right Shoulder Flexion - Active 145 Shoulder Abduction - Active 145 Shoulder Medial Rotation - Active right PSSI Query Text:Reach Behind the Back Shoulder Lateral Rotation - Active 61 Upper Extremity Muscle Strength Testing Scapular/Shoulder Bilateral Shoulder Flexion Strength 5 Normal Shoulder Abduction Strength 5 Normal Shoulder Medial Rotation Strength 5 Normal Shoulder Lateral Rotation Strength 5 Normal Shoulder Strength Comments upper trapezius: R = 5/5, L = 5/5 right title searcher: 54lb, left gip: 105lb/pressure --right hand had difficulty opening from title searcher tip pinch right: 9lb/presure, lateral pinch: 10lb/pressure Posture Posture Standing
--- NOTE | 2021-10-22 11:44 | PCPTNOTE ---
This treatment is being continued on visit number [id number]. Please see documentation on both accounts to view progress. Completed interventions, outcomes, and problems have been marked as Inactive to facilitate the copying of the Care plan routine for recurring accounts.
== END 2021-10-21 23:59 | disposition home or self-care (01) ==
LOC: ANHPT 08:30
PROVIDERS: PCP Physician Assistant; Visit Provider Physician Assistant
DX: M79.602 Pain in left arm (principal)
CPT/HCPCS: 97014; 97110; 97112; 97140; 97163; 97530; G0283

== ENCOUNTER 2022-01-01 07:30 | Outpatient (RCR) | payer OTHER, SELFPAY ==
--- NOTE | 2021-10-22 11:45 | PCPTNOTE ---
The treatment documented on this account is a continuation of the treatment documented on visit number [id number]. Please see documentation on both accounts to view progress. The Plan of Care has been transitioned and updated within the new V#. I have addressed and agree with the discipline specific Problems, Interventions, and Goals for the current certification period. Completed interventions, outcomes, and problems have been marked as Inactive to facilitate the copying of the Care plan routine for recurring accounts.
--- NOTE | 2021-11-20 08:28 | PTOPEVAL ---
PHYSICAL THERAPY PROGRESS REPORT Thank you for referring Varsha Epperson to [facility].? The patient is scheduled to be seen for therapy? 1x/week for 6 weeks. Please review, sign, date and return this plan of care MERY. I agree with and certify that the following plan of care is medically necessary. Referring Physician Date Attending Provider: Lety Harris, PA Diagnosis neck pain, arm pain Subjective Information Overall feeling like she has Query Text:As Reported By Patient/ improvement and feeling Family progress. States that her pain is kind of minimal and tightness is uncomfortable. She feels like she has more movement but the muscle tightness is there and feels like she needs more myofascial release. Pain Score Pain Score 0: Self Report Additional Pain Score Comments states that her pain is minimal but her tightness is a 7/10 Upper Extremity Range of Motion Scapular/ Shoulder Range of Motion Right Shoulder Flexion - Active 145 Shoulder Abduction - Active 150 Shoulder Medial Rotation - Active PSIS Query Text:Reach Behind the Back Shoulder Lateral Rotation - Active 50 Upper Extremity Muscle Strength Testing General Upper Extremity Strength Gross Upper Extremity Strength Comments upper trapezius: R = 5/5, L = 5/5 right thread spinner: 54lb, left gip: 105lb/pressure --right hand had difficulty opening from thread spinner tip pinch right: 9lb/presure, lateral pinch: 10lb/pressure Scapular/Shoulder Right Shoulder Flexion Strength 5 Normal Shoulder Abduction Strength 5 Normal Shoulder Medial Rotation Strength 4+ Good + Shoulder Lateral Rotation Strength 4 Good Shoulder Strength Comments minimal and difficult activation of serratus anterior ; limited scapular upward and downward rotation Muscle Length Testing Muscle Length Testing Muscle Length Testing Comments right rhomboids severely tight Palpation Assessment Palpation Palpation continues to have severe hypertrophy of right rhomboids ; significant trigger points to right subscapularis PT Clinical Summary Varsha has been participating in physical therapy for a month to address shoulder and
--- NOTE | 2022-01-01 08:33 | PTOPEVAL ---
PHYSICAL THERAPY DISCHARGE NOTE Thank you for referring Varsha Epperson to [facility] [place]Note 2[facility]?Please review, sign, date and return this plan of care MERY. I agree with and certify that the following plan of care is medically necessary. Referring Physician Date Attending Provider: Lety Harris, PA Diagnosis neck pain, arm pain Subjective Information Overall feeling like she has Query Text:As Reported By Patient/ improvement and feeling Family progress. Continues to have some significant tightness around the shoulde blade. States that she stretches at home. Upper Extremity Range of Motion Scapular/ Shoulder Range of Motion Right Shoulder Flexion - Active 145 Shoulder Abduction - Active 150 Shoulder Medial Rotation - Active PSIS Query Text:Reach Behind the Back Shoulder Lateral Rotation - Active 58 Upper Extremity Muscle Strength Testing Scapular/Shoulder Right Shoulder Flexion Strength 5 Normal Shoulder Abduction Strength 5 Normal Shoulder Medial Rotation Strength 4+ Good + Shoulder Lateral Rotation Strength 4+ Good + Shoulder Strength Comments minimal and difficult activation of serratus anterior ; limited scapular upward and downward rotation Muscle Length Testing Muscle Length Testing Muscle Length Testing Comments right rhomboids moderately tight Palpation tissue quality improving PT Clinical Summary Varsha has been participating in physical therapy for a month to address shoulder and arm and neck pain and decreased function secondary to complications from a cervical spine fusion. Today Varsha's ROM and strength of shoulder are WFL. She does continue to report tightness and discomfort to the right shoulder that can be disruptive of her daily life.
== END 2022-01-01 16:19 | disposition home or self-care (01) ==
LOC: ANHPT 07:30
PROVIDERS: PCP Physician Assistant; Visit Provider Physician Assistant
DX: M79.602 Pain in left arm (principal)
CPT/HCPCS: 97014; 97110; 97112; 97140; 97163; G0283

== ENCOUNTER 2022-01-27 08:41 | Outpatient (RCR) | payer OTHER, SELFPAY ==
--- NOTE | 2022-01-27 10:20 | PTOPEVAL1 ---
Evaluation Information Assessment Status Evaluation Diagnosis myalgia Onset 2018 Subjective Information Varsha reports: continues to have muscle pain since surgery in 2018; have been doing exercises at home, but have to have the myofascial release to help me; have had PT in the past, myofascial release and cupping helped, have more pain during therapy, then later it releases; since stopped therapy 3 weeks ago, have gotten worse with the pain; Have had OT in the past for her R hand and did water exercises with OT; got a [employer] membership, but since COVID, have let it lapse and not going there; Was going to pain management, but insurance no longer taken there, so not under pain managment care since last year- over 1 yr ago; was getting trigger point injections and they helped; Have seen neurologist and they stated they could not do anything more for her. Reported Pain Level Pain Score Self Report range of 5-10/10 Additional Pain Score Comments report tolerances: sleeping 3-4 hours at a time; standing 1 hour; walking 40 min; sitting 2 & 1/2 hours; Oswestry self assessment functional score of 56% limitation in activity; have headaches 3x/wk. last 15-20 minutes, until lie down and take pressure off neck; have started having involuntary movement of R arm since pain worse; discussed use of cervical soft collar PRN for ease neck pain; have used taping--leukotape, kinesiotape--helped some, but had to watch skin; have had US, electrical stim in the past,some help have not had cold laser; Assessment PT Clinical Summary Varsha has the diagnosis of myalgia. She has chronic pain in R upper quadrant and headaches since cervical surgery in 2018. She reports decreased sleeping, standing and walking tolerances due to pain. Self assessment Oswestry score is 56% limitation in activity level. She reports doing exercises at home for her neck and shoulder. And PT for myofascial release helps her pain. She was discharged from PT about 3 weeks ago and
--- NOTE | 2022-03-04 16:21 | PCPTNOTE ---
PHYSICAL THERAPY DISCHARGE 03-04-22 Attending Provider: LINDA Brody Patient:Varsha Epperson Date of :1975 Varsha attended the initial evaluation on January 27, for the diagnosis of myalgia. She then called and stated she did not want to attend therapy here. Therefore she will be discharged from PT. Thank you for referring this patient to [facility].
== END 2022-03-05 11:44 | disposition home or self-care (01) ==
LOC: ANHPT 08:41
PROVIDERS: PCP Physician Assistant; Referring Provider Physician Assistant; Visit Provider Physician Assistant
DX: M79.10 Myalgia, unspecified site (principal)
CPT/HCPCS: 97162

== ENCOUNTER 2022-02-10 14:30 | Emergency (ER) | payer OTHER, SELFPAY ==
[2022-02-10 14:46] VITALS: BP 136/91; PULSE 66; RESP 16; TEMP 36.9; O2SAT 100
--- NOTE | 2022-02-10 14:59 | ED.DENTAL ---
HPI - Dental/Oral General Chief complaint: Dental/Oral Stated complaint: Dental Pain Time Seen by Provider: 02/10/22 15:44 Source: patient Mode of arrival: ambulatory Limitations: no limitations History of Present Illness HPI Narrative: 46-year-old female presents concern for left-sided lower dental pain. She reports she began having pain and swelling in the lower jaw 1 to 2 days ago, she is use clove oil. She reports the swelling improved mildly but the pain is still there. She reports a feeling of something being in her tooth. She denies trouble swallowing, fever. MD Complaint: tooth pain Related Data Home Medications Medication Instructions Recorded Confirmed baclofen 20 mg tablet 20 mg PO TID 02/10/22 02/10/22 cholecalciferol (vitamin D3) 50 50 mcg PO DAILY 02/10/22 02/10/22 mcg (2,000 unit) capsule (Vitamin D3) warfarin 3 mg tablet 8 mg PO DAILY 02/10/22 02/10/22 Allergies Allergy/AdvReac Type Severity Reaction Status Date / Time amoxicillin Allergy Intermediate Rash Verified 02/10/22 15:13 azithromycin [From Zithromax] Allergy Intermediate Rash Verified 02/10/22 15:13 Bleach (Sodium Hypochlorite) Allergy Intermediate Rash Verified 02/10/22 15:13 Review of Systems Review of Systems: CONSTITUTIONAL: Denies malaise, chills, sweats, or fever. EYES: Denies visual changes ENT: Denies rhinorrhea, congestion, sinus pain, otalgia or sore throat. Reports left lower dental pain and jaw swelling CARDIOVASCULAR: Denies chest pain, palpitations RESPIRATORY: Denies cough or dyspnea. SKIN: Denies rash or itching. MUSCULOSKELETAL: Denies myalgia. NEUROLOGIC: Denies numbness, weakness, or headache. 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 There is no relevant family history pertinent to the presenting complaint Exam Narrative: GENERAL: Well-appearing, well-nourished, and in no acute distress. HEAD: Normocephalic, atraumatic. EYES: PERRLA, sclera clear ENT: Nares clear, turbinates pink, no rhinorrhea or epistaxis. Mucous membranes moist. Oropharynx without erythema or lesions. Tonsils not enlarged and without exudate. No missing teeth, broken teeth noted. Decay noted in tooth #19 with small amount of purulent discharge to the lateral edge of the tooth. Left jaw tenderness noted NECK: Supple. No lymphadenopathy. CHEST: No respiratory distress. Speaks in full sentences. HEART: Regular rate and rhythm. SKIN: Warm, dry, no visible rash. NEURO: Alert and oriented x3. PSYCH: Normal mood and affect Course Course Emergency Course: Patient is aware of diagnosis, understands and agrees to treatment plan. Anticipatory guidance given. Patient agrees to follow-up as dir
== END 2022-02-10 15:55 | disposition home or self-care (01) ==
PROVIDERS: Emergency Provider Nurse Practitioner; PCP Physician Assistant
DX: K04.7 Periapical abscess without sinus (principal); F17.210 Nicotine dependence, cigarettes, uncomplicated; F12.90 Cannabis use, unspecified, uncomplicated; E11.9 Type 2 diabetes mellitus without complications; I10 Essential (primary) hypertension; Z86.2 Personal history of diseases of the blood and blood-forming organs and certain disorders involving the immune mechanism; Z87.898 Personal history of other specified conditions; Z86.718 Personal history of other venous thrombosis and embolism; Z79.01 Long term (current) use of anticoagulants
CPT/HCPCS: 99213; G0463

== ENCOUNTER 2022-04-13 06:03 | Emergency (ER) | payer OTHER, SELFPAY ==
--- NOTE | ~2022-04-13 | XR_ITS ---
XR chest 2V DATE: 04/13/2022 07:08 INDICATION: Intermittent epigastric pain. Chest pain. TECHNIQUE: PA and lateral chest COMPARISON: 06/11/2021 PA and lateral chest FINDINGS: Status post posterior surgical fusion of cervical spine. Surgical clips, right upper quadrant, consistent with cholecystectomy. Normal heart size. No hilar or mediastinal enlargement. No pulmonary infiltrate or consolidation, ple ural effusion or pulmonary vascular congestion or pneumothorax. IMPRESSION: No active cardiopulmonary disease Reviewed, dictated and finalized at location A. BROTHER
[2022-04-13 06:06] VITALS: BP 156/109; PULSE 66; RESP 18; TEMP 36.7; O2SAT 100
--- NOTE | 2022-04-13 06:11 | ECG_ITS ---
Measurements Intervals [place] Rate: 65 P: 68 OH: 200 QRS: 29 QRSD: 96 T: 38 QT: 377 QTc: 394 Interpretive Statements SINUS RHYTHM BORDERLINE AV CONDUCTION DELAY BASELINE ARTIFACT- I, II, III, AVR, AVF BORDERLINE ECG COMPARED TO ECG 06/11/2021 20:47:27 NO SIGNIFICANT CHANGES Electronically Signed On 04-13-2022 9:12:35 FITTING ROOM OPERATOR by Caden Norwood D.O.
[2022-04-13] MEDS: ASPIRIN 81 MG CHEWABLE TABLET 324 MG PO (06:19)
[2022-04-13 06:28] LABS: Basophils Percent Auto 0.6 % (0.2-1.2); Eosinophils Absolute Auto 0.1 K/mm3 (0-0.3); Eosinophils Percent Auto 1.5 % (0-4.4); Hematocrit 44.9 % (37.0-47.0); Hemoglobin 15.4 g/dL (12.0-15.0); Immature Granulocyte Absolute 0.02 K/mm3 (0.00-0.031); Immature Granulocyte Percent A 0.3 % (0-0.5); Lymphocytes Absolute Auto 2.25 K/mm3 (0.9-3.2); Lymphocytes Percent Auto 34.8 % (18.3-44.2); Mean Corpuscular HGB Conc 34.3 g/dl (32-36); Mean Corpuscular Hemoglobin 31.2 pg (26-34); Mean Corpuscular Volume 90.9 fl (80-100); Mean Platelet Volume 12.1 fl (7.4-10.4); Monocytes Absolute Auto 0.6 K/mm3 (0.1-0.6); Monocytes Percent Auto 9.6 % (2.6-8.5); Neutrophils Absolute Auto 3.4 K/mm3 (1.3-6.7); Neutrophils Percent Auto 53.2 % (45.5-73.1); Platelet Count Result 162 k/mm3 (150-375); Red Blood Count 4.94 M/mm3 (4.2-5.4); Red Cell Distribution Width 13.8 % (11.5-14.5); White Blood Count 6.5 K/mm3 (4.5-10.0)
--- NOTE | 2022-04-13 06:36 | ED.CHESTPAIN ---
HPI - Chest Pain General Chief Complaint: Chest Pain Stated Complaint: chest, arm, abd, back pain Time Seen by Provider: 04/13/22 06:13 History of Present Illness HPI narrative: Patient is a 46-year-old female with a history of PE on Coumadin, chronic neck and back pain related to a prior back injury presenting with back, epigastric, and chest pain. Patient states that she struggles a lot with chronic back pain and lately she has been going to physical therapy. States they have been trying to work out the right side of her back. Patient states that her mid back pain started to extend to the right side of her back a couple of days ago. Over the last day it has now extended to her left shoulder and left chest. Patient states that she usually uses medical marijuana for pain control but lately she has been feeling like it makes her chest tight so she has not used it. She has not taken anything else for pain control. States that she takes baclofen but she has not taken it for several days. She denies fevers, headache, shortness of breath, palpitations, lightheadedness, diaphoresis, nausea or vomiting, diarrhea, leg swelling. Related Data Home Medications Medication Instructions Recorded Confirmed baclofen 20 mg tablet 20 mg PO TID 02/10/22 02/10/22 cholecalciferol (vitamin D3) 50 50 mcg PO DAILY 02/10/22 02/10/22 mcg (2,000 unit) capsule (Vitamin D3) warfarin 3 mg tablet 8 mg PO DAILY 02/10/22 02/10/22 Allergies Allergy/AdvReac Type Severity Reaction Status Date / Time amoxicillin Allergy Intermediate Rash Verified 02/10/22 15:13 azithromycin [From Zithromax] Allergy Intermediate Rash Verified 02/10/22 15:13 Bleach (Sodium Hypochlorite) Allergy Intermediate Rash Verified 02/10/22 15:13 acetaminophen [From Percocet] Allergy Itching Verified 04/13/22 06:42 adhesive tape Allergy Rash Verified 04/13/22 06:04 morphine Allergy Itching Verified 04/13/22 06:42 oxycodone [From Percocet] Allergy Itching Verified 04/13/22 06:42 Review of Systems Review of Systems: 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 Diabetes Patient says she does not take any medications anymore due to controlled with diet Hypertension Patient says she does not take any medications anymore due to controlled with diet Lipoma of extremity Removed from RT thigh Pulmonary embolism Smoker Surgical History Surgical History History of carpal tunnel surgery bilateral History of spinal fusion 09/2017-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 EYES: PERRLA and EOMI. ENT: Nares clear, no rhinorrhea or epistaxis. Mucous membranes moist. NECK: Supple. CHEST: Clear to auscultation. No respiratory distress. HEART: Regular rate and rhythm. No murmur heard. Normal peripheral pulses. ABDOMEN: Soft, nontender, nondistended, normal active bowel sounds. EXTREMITIES: Normal range of motion. No edema. SKIN: Warm, dry, no rash. NEURO: No focal deficits. Alert and oriented x3. PSYCH: Normal mood and affect. Course Vital Signs Vital signs: Vital Signs Temperature 98.1 F 04/13/22 06:06 Pulse Rate 66 04/13/22 06:06 Respiratory
[2022-04-13 06:42] LABS: INR 1.4; Prothrombin Time 16.2 Seconds (11.1-14.7)
[2022-04-13 06:43] LABS: Partial Thromboplastin Time 32.2 SECONDS (22.3-36.8)
[2022-04-13] MEDS: SODIUM CHLORIDE 0.9% IV 1,000 ML 999 ML IV CONT (06:43)
[2022-04-13] MEDS: KETOROLAC 15 MG/ML VIAL (*BKC) IV PUSH (06:44)
[2022-04-13] MEDS: fentaNYL CITRATE INJ (*CRX) 100 MCG/2 ML VIAL 50 MCG IV PUSH (06:44)
[2022-04-13 06:51] VITALS: BP 137/86; PULSE 66; RESP 18; O2SAT 100
[2022-04-13 06:51] LABS: Alanine Aminotransferase 27 U/L (6-35); Albumin Level 4.3 g/dL (3.5-5.1); Alkaline Phosphatase 70 U/L (38-126); Anion Gap 8 mmol/L (8-16); Aspartate Amino Transferase 30 U/L (14-36); Blood Urea Nitrogen 8 mg/dL (7-17); Calcium 8.5 mg/dL (8.4-10.2); Carbon Dioxide 24 mmol/L (22-30); Chloride 104 mmol/L (98-107); Estimated CRCL calculation 92 ml/min; Estimated Glomerular Filt Rate > 60; Glucose 84 mg/dL (65-110); Lipase 59 U/L (23-300); Potassium 3.8 mmol/L (3.4-5.0); Sodium 136 mmol/L (137-145)
[2022-04-13 07:01] LABS: Troponin I < 0.012 ng/mL (0.000-0.034)
[2022-04-13] MEDS: BACLOFEN 10 MG TABLET 20 MG PO (07:10)
[2022-04-13 07:12] VITALS: BP 130/86; PULSE 64; RESP 20; O2SAT 100
[2022-04-13 07:34] VITALS: BP 132/83; PULSE 64; RESP 18; O2SAT 100
== END 2022-04-13 07:37 | disposition home or self-care (01) ==
PROVIDERS: Emergency Provider Emergency Medicine; PCP Physician Assistant
DX: R07.89 Other chest pain (principal); R10.13 Epigastric pain; M54.9 Dorsalgia, unspecified; G89.21 Chronic pain due to trauma; E11.9 Type 2 diabetes mellitus without complications; I10 Essential (primary) hypertension; Z98.1 Arthrodesis status; Z86.711 Personal history of pulmonary embolism; Z79.01 Long term (current) use of anticoagulants; F17.210 Nicotine dependence, cigarettes, uncomplicated; R94.31 Abnormal electrocardiogram [ECG] [EKG]
CPT/HCPCS: 36415; 71046; 80053; 83690; 84484; 85025; 85610; 85730; 93005; 96361; 96374; 96375; 99284; A9270; J1885; J3010; J7030

== ENCOUNTER 2022-04-30 06:34 | Outpatient (CLI) | payer OTHER, SELFPAY ==
--- NOTE | ~2022-04-30 | MR_ITS ---
MRI of the lumbar spine Clinical History: Radiculopathy Technique: Axial T2-weighted images, and sagittal T1-weighted, T2-weighted, and T2 fat sat images wer e acquired. COMPARISON: 09/28/2019 Findings: No fracture identified. Grade 1 retrolisthesis of L5 over S1 is unchanged. No suspicious stephanie ne marrow signal abnormality identified. At L1-L2, there is mild disc desiccation and narrowing. There is minimal disc bulge with facet joint arthropathy. No spinal canal stenosis. There is probable mild left neural foraminal narrowing. Right neural foramen preserved. At L2-L3, there is no disc bulge or herniation. There is facet joint arthropathy. No spinal canal poonam nosis or neural foraminal narrowing. At L3-L4, there is minimal disc bulge with moderate facet arthropathy. No spinal canal stenosis or ne ural foraminal narrowing. At L4-L5, there is stable disc bulge with large central disc extrusion, resulting in mild compression of the thecal sac anteriorly. There is underlying facet arthropathy. There is moderate bilateral shantel ral foraminal narrowing. At L5-S1, there is a large disc protrusion predominantly at the left paracentral to left foraminal re gion, which minimally flattens the thecal sac anteriorly. There is underlying moderate to severe face t joint arthropathy. There is severe bilateral neural foraminal compromise. Paravertebral soft tissues are unremarkable. Impression: Overall, probably no significant interval change from prior exam. Central disc extrusion superimposed upon disc bulge at L4-L5, resulting in mild compression of the th ecal sac anteriorly. Left paracentral to left foraminal disc protrusion at L5-S1, with minimal flattening of the anterior thecal sac. Bilateral neural foraminal narrowing at L4-L5 and L5-S1, as detailed above. Stable grade 1 retrolisthesis of L5 over S1. Reviewed, dictated and finalized at location [] MIC TILE INSTALLER Impression: Overall, probably no significant interval change from prior exam. Central disc extrusion superimposed upon disc bulge at L4-L5, resulting in mild compression of the thecal sac anteriorly. Left paracentral to left foraminal disc protrusion at L5-S1, with minimal stanton ening of the anterior thecal sac. Bilateral neural foraminal narrowing at L4-L5 and L5-S1, as detailed above. Stable grade 1 retrolisthesis of L5 over S1.
== END 2022-04-30 06:35 | disposition home or self-care (01) ==
PROVIDERS: PCP Physician Assistant; Visit Provider Nurse Practitioner Adult Health
DX: M54.16 Radiculopathy, lumbar region (principal); M51.26 Other intervertebral disc displacement, lumbar region
CPT/HCPCS: 72148

== ENCOUNTER 2022-06-12 17:40 | Emergency (ER) | payer OTHER, SELFPAY ==
[2022-06-12 17:43] VITALS: BP 165/84; PULSE 78; RESP 20; TEMP 36.3; O2SAT 100
--- NOTE | 2022-06-12 17:44 | ECG_ITS ---
Measurements Intervals [place] Rate: 74 P: 60 SD: 183 QRS: 28 QRSD: 100 T: 29 QT: 373 QTc: 414 Interpretive Statements SINUS RHYTHM BASELINE ARTIFACT- I, II, AVR NORMAL ECG COMPARED TO ECG 04/13/2022 06:10:39 NO SIGNIFICANT CHANGES Electronically Signed On 06-13-2022 10:19:12 MATERIAL CARRIER by Caden Norwood D.O.
[2022-06-12 17:45] VITALS: PULSE 74
--- NOTE | 2022-06-12 18:21 | ED.CHESTPAIN ---
HPI - Chest Pain General Chief Complaint: Chest Pain Stated Complaint: Chest Pain Time Seen by Provider: 06/12/22 18:30 Mode of arrival: ambulatory Limitations: no limitations History of Present Illness HPI narrative: 46-year-old female presents concern for chest pain. She reports she has been having intermittent in anterior chest pain for 1 week. Reports it starts at the left anterior shoulder and radiates down chest. She denies any shortness of breath, diaphoresis, exacerbating or relieving factors. She reports she has had similar chest pain in the past and has gone to the emergency room and had a clear workup, she has been told this is likely related to her neck surgery and complications from her neck surgery. Reports she has been being treated by physical therapist and had trigger point injections for that today. She reports history of AP as a complication of her surgery and is on a blood thinner for that. She denies any cough, shortness of breath. MD complaint: chest pain Related Data Home Medications Medication Instructions Recorded Confirmed baclofen 20 mg tablet 20 mg PO TID 02/10/22 06/12/22 cholecalciferol (vitamin D3) 50 50 mcg PO DAILY 02/10/22 06/12/22 mcg (2,000 unit) capsule (Vitamin D3) warfarin 3 mg tablet 8 mg PO DAILY 02/10/22 06/12/22 bupropion HCl 150 mg tablet,12 hr 150 mg PO BID 06/12/22 06/12/22 sustained-release Allergies Allergy/AdvReac Type Severity Reaction Status Date / Time amoxicillin Allergy Intermediate Rash Verified 02/10/22 15:13 azithromycin [From Zithromax] Allergy Intermediate Rash Verified 02/10/22 15:13 Bleach (Sodium Hypochlorite) Allergy Intermediate Rash Verified 02/10/22 15:13 adhesive tape Allergy Rash Verified 04/13/22 06:04 morphine Allergy Itching Verified 04/13/22 06:42 oxycodone [From Percocet] Allergy Itching Verified 04/13/22 06:42 Review of Systems Review of Systems: CONSTITUTIONAL: Denies malaise, chills, sweats, or fever. EYES: Denies visual changes, redness, or discharge. ENT: Denies rhinorrhea, congestion, sinus pain, otalgia or sore throat. CARDIOVASCULAR: Reports anterior chest pain. Denies palpitations, or edema. RESPIRATORY: Denies cough or dyspnea. GASTROINTESTINAL: Denies abdominal pain, nausea, vomiting, SKIN: Denies rash or itching. MUSCULOSKELETAL: Reports chronic shoulder pain NEUROLOGIC: Denies numbness, weakness, or headache. 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 There is no relevant family history pertinent to the presenting complaint Exam Narrative: GENERAL: Well-appearing, well-nourished, and in no acute distress
[2022-06-12 18:50] VITALS: BP 110/68; PULSE 68; RESP 20; O2SAT 100
== END 2022-06-12 18:50 | disposition home or self-care (01) ==
PROVIDERS: Emergency Provider Nurse Practitioner; PCP Physician Assistant
DX: F17.219 Nicotine dependence, cigarettes, with unspecified nicotine-induced disorders (principal); F17.210 Nicotine dependence, cigarettes, uncomplicated; E11.9 Type 2 diabetes mellitus without complications; Z86.711 Personal history of pulmonary embolism; Z86.718 Personal history of other venous thrombosis and embolism; Z79.01 Long term (current) use of anticoagulants
CPT/HCPCS: 93005; 99213; G0463

== ENCOUNTER 2022-07-18 11:54 | Outpatient (CLI) | payer OTHER, SELFPAY ==
--- NOTE | ~2022-07-18 | MMUS_ITS ---
EXAMINATION: MM diagnostic ed BI w alan, US breast RT limited HISTORY: Palpable lumps right breast TECHNIQUE: Additional 3-D tomosynthesis images of the breasts were performed and synthetic 2-D images were generated. CAD analysis was submitted and interpreted. High resolution Limited right breast ult rasound was performed. COMPARISON: None BREAST PARENCHYMAL COMPOSITION: BREAST PARENCHYMAL COMPOSITION: There are scattered areas of fibroglandular density. FINDINGS: MAMMOGRAPHIC FINDINGS: There are no suspicious masses, calcifications or architectural distortion in either breast to sugges t malignancy. ULTRASOUND: Limited right breast ultrasound: Normal heterogeneous echotexture without focal solid or cystic mass. IMPRESSION: 1. No evidence for malignancy in either breast. 2. Routine yearly screening mammogram and regular clinical breast examination are recommended. BI-RADS Category 1: Negative Reviewed, dictated and finalized at location B. GER TARGET IMPRESSION: 1. No evidence for malignancy in either breast. 2. Routine yearly screening mammogram and regular clinical breast examination a re recommended. BI-RADS Category 1: Negative
== END 2022-07-18 11:55 | disposition home or self-care (01) ==
LOC: ANHIMG 11:56
PROVIDERS: PCP Physician Assistant; Visit Provider Physician Assistant
DX: N63.10 Unspecified lump in the right breast, unspecified quadrant (principal)
CPT/HCPCS: 76642; 77062; 77066; G0279

== ENCOUNTER 2022-12-02 06:49 | Outpatient (CLI) | payer OTHER, SELFPAY ==
--- NOTE | ~2022-12-02 | MR_ITS ---
MRI of the cervical spine Clinical History: Radiculopathy Technique: Axial T2-weighted and gradient images, and sagittal T1-weighted, T2-weighted, and STIR ollie ges were acquired. COMPARISON: 09/26/2019 Findings: There is no acute fracture or subluxation of the cervical spine. Vertebral bodies maintain normal height and alignment. There is posterior fusion hardware extending from C3 through C6, with as sociated susceptibility artifact in the spinal canal and posterior element regions. There are laminec tomies of C3, C4, and C5. There is probable underlying ossification the posterior longitudinal ligament from C2 through C6. At C2-C3, there is no central canal stenosis or cord compression. Bilateral neural foramina are prese rved. At C3-C4, there is no adolfo spinal canal stenosis or cord compression. Neural foramina are probably p reserved. At C4-C5, there is no adolfo spinal canal stenosis or cord compression. There is probable left neural foraminal narrowing. Right neural foramen preserved. At C5-C6, there is no adolfo spinal canal stenosis or cord compression. Neural foramina appear preserv ed. At C6-C7, there is disc osteophyte complex which mildly effaces the thecal sac, but no adolfo canal st enosis or cord compression evident. There is probable bilateral neural foraminal narrowing. There is stable areas of apparent chronic myelomalacia with increased T2 signal in the right side of the spinal cord at the C4 and C5 levels. Paravertebral soft tissues are unremarkable aside from postoperative change. Impression: Overall, probably no significant change from prior exam. Posterior fusion, as detailed above, with associated laminectomies extending from C3 through C6. Unde rlying ossification of the posterior longitudinal ligament from C2 through C6. Stable focal areas of chronic myelomalacia in the right side of the spinal cord at the C4 and C5 leve ls. Mild underlying degenerative spondylosis, as detailed above. Reviewed, dictated and finalized at location M. Impression: Overall, probably no significant change from prior exam. Posterior fusion, as detailed above, with associated laminectomies extending fr om C3 through C6. Underlying ossification of the posterior longitudinal ligamen t from C2 through C6. Stable focal areas of chronic myelomalacia in the right side of the spinal cord at the C4 and C5 levels. Mild underlying degenerative spondylosis, as detailed above.
== END 2022-12-02 06:50 | disposition home or self-care (01) ==
PROVIDERS: PCP Physician Assistant; Visit Provider Nurse Practitioner Adult Health
DX: M47.22 Other spondylosis with radiculopathy, cervical region (principal); G95.89 Other specified diseases of spinal cord; M96.1 Postlaminectomy syndrome, not elsewhere classified
CPT/HCPCS: 72141

== ENCOUNTER 2023-01-17 08:50 | Emergency (ER) | payer OTHER, SELFPAY ==
--- NOTE | ~2023-01-17 | CT_ITS ---
EXAMINATION: CT abdomen pelvis wo con DATE: 01/17/2023 10:03 INDICATION: Right flank pain TECHNIQUE: Computed tomography (CT) of the abdomen and pelvis was performed without intravenous contr ast. The dose-length product (DLP) was 980.22 mGy-cm. Automated exposure control and iterative recons truction technique were employed. COMPARISON: None FINDINGS: The heart size is normal. A 3 mm nodule of the left lower lobe likely reflects old granulom atous disease. Changes of cholecystectomy are noted. The liver, spleen, pancreas, and adrenal glands are normal. The kidneys are unremarkable. No stones are identified in the kidneys, ureters, or bladde r. No hydronephrosis or hydroureter. An inferior vena cava filter is noted. No pathologically enlarge d abdominal or pelvic lymph nodes are identified. No free intraperitoneal gas or evidence of bowel ob struction. The appendix is normal. There is a 6.7 x 4.7 cm mixed attenuation pedunculated fibroid of the uterine fundus with areas of internal hemorrhage. There is severe lumbar spondylosis at L4-5. IMPRESSION: 1. No CT correlate for the patient's symptoms. 2. Findings consistent with degenerating fibroid of the uterine fundus. Reviewed, dictated and finalized at location A.
[2023-01-17 08:53] VITALS: BP 144/87; PULSE 59; RESP 16; TEMP 36.6; O2SAT 98
--- NOTE | 2023-01-17 09:19 | ED.GENADULT ---
HPI - General Adult General Chief complaint: Back Pain/Injury Stated complaint: right upper back pain Time Seen by Provider: 01/17/23 09:02 Source: patient Mode of arrival: ambulatory Limitations: no limitations History of Present Illness HPI narrative: This is a 47-year-old female who presents to the ED with chief complaint of right mid and low back pain ongoing for the past 2 days. She reports it wraps around into the right side of the abdomen intermittently. She does notice specifically worse with certain positions like sitting up from from laying down. She describes it as in her rhomboid area. She does endorse of some urinary frequency lately. Denies dysuria or hematuria. She also endorses specific concern over her IVC filter as it has had a recall and she wants to make sure it has not migrated. Denies fevers, chills, nausea, vomiting, chest pain, shortness of breath, cough, problems with bowel movements. Related Data Home Medications Medication Instructions Recorded Confirmed baclofen 20 mg tablet 20 mg PO TID 02/10/22 06/12/22 cholecalciferol (vitamin D3) 50 50 mcg PO DAILY 02/10/22 06/12/22 mcg (2,000 unit) capsule (Vitamin D3) warfarin 3 mg tablet 8 mg PO DAILY 02/10/22 06/12/22 bupropion HCl 150 mg tablet,12 hr 150 mg PO BID 06/12/22 06/12/22 sustained-release Allergies Allergy/AdvReac Type Severity Reaction Status Date / Time amoxicillin Allergy Intermediate Rash Verified 01/17/23 09:07 azithromycin [From Zithromax] Allergy Intermediate Rash Verified 01/17/23 09:07 Bleach (Sodium Hypochlorite) Allergy Intermediate Rash Verified 01/17/23 09:07 adhesive tape Allergy Rash Verified 01/17/23 09:07 morphine Allergy Itching Verified 01/17/23 09:07 oxycodone [From Percocet] Allergy Itching Verified 01/17/23 09:07 Review of Systems Review of Systems: All systems as dictated in HPI PMF Past Medical History Medical History 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 Diabetes Patient says she does not take any medications anymore due to controlled with diet Hypertension Patient says she does not take any medications anymore due to controlled with diet Lipoma of extremity Removed from RT thigh Pulmonary embolism Smoker Surgical History Surgical History History of carpal tunnel surgery bilateral History of spinal fusion 09/2017-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 HEAD: Normocephalic, atraumatic. EYES: PERRLA and EOMI. ENT: Nares clear, no rhinorrhea or epistaxis. Mucous membranes moist. Oropharynx without tonsillar hypertrophy exudate or other lesions. NECK: Supple. No adenopathy or masses. CHEST: No respiratory distress. Clear to auscultation. No wheezes rales or rhonchi HEART: Regular rate and rhythm. No murmur heard. Normal peripheral pulses. ABDOMEN: Soft, nontender, nondistended, normal active bowel sounds. MSK: She has point tenderness in the right mid to upper back. No midline spinal tenderness throughout. There is slight tenderness in the CVA area on the right as well. SKIN: Warm, dry, no rash. Old posterior surgical scar to the cervical spine. NEURO: Alert and oriented x3. No focal deficits. PSYC
[2023-01-17 10:01] LABS: Basophils Percent Auto 0.8 % (0.2-1.2); Eosinophils Absolute Auto 0.1 K/mm3 (0-0.3); Eosinophils Percent Auto 2.8 % (0-4.4); Hematocrit 41.2 % (37.0-47.0); Hemoglobin 13.4 g/dL (12.0-15.0); Immature Granulocyte Absolute 0.02 K/mm3 (0.00-0.031); Immature Granulocyte Percent A 0.4 % (0-0.5); Lymphocytes Absolute Auto 1.43 K/mm3 (0.9-3.2); Lymphocytes Percent Auto 28.5 % (18.3-44.2); Mean Corpuscular HGB Conc 32.5 g/dl (32-36); Mean Corpuscular Hemoglobin 28.8 pg (26-34); Mean Corpuscular Volume 88.6 fl (80-100); Mean Platelet Volume 12.3 fl (7.4-10.4); Monocytes Absolute Auto 0.5 K/mm3 (0.1-0.6); Neutrophils Absolute Auto 2.9 K/mm3 (1.3-6.7); Neutrophils Percent Auto 57.5 % (45.5-73.1); Platelet Count Result 181 k/mm3 (150-375); Red Blood Count 4.65 M/mm3 (4.2-5.4); Red Cell Distribution Width 14.6 % (11.5-14.5)
[2023-01-17 10:02] LABS: Appearance Urine Clear (Clear); Bilirubin Urine Negative (Negative); Blood Urine Negative (Negative); Color Urine Yellow (Yellow); Glucose Urine UA Negative (Negative); Ketones Urine Negative (Negative); Leukocyte Esterase Ur Negative LEU/UL (Negative); Nitrate Urine Negative (Negative); Protein Urine Negative (Negative); Specific Grav Ur 1.012 (1.001-1.035); Urobilinogen Urine 0.2 mg/dL (<2.0)
[2023-01-17 10:13] LABS: Alanine Aminotransferase 24 U/L (6-35); Albumin Level 3.7 g/dL (3.5-5.1); Alkaline Phosphatase 72 U/L (38-126); Anion Gap 6 mmol/L (8-16); Aspartate Amino Transferase 26 U/L (14-36); Bilirubin,Total 0.4 mg/dL (0.2-1.3); Blood Urea Nitrogen 7 mg/dL (7-17); Calcium 8.2 mg/dL (8.4-10.2); Carbon Dioxide 25 mmol/L (22-30); Chloride 106 mmol/L (98-107); Estimated CRCL calculation 108 ml/min; Estimated Glomerular Filt Rate > 60; Glucose 98 mg/dL (65-110); Potassium 4.2 mmol/L (3.4-5.0); Sodium 137 mmol/L (137-145)
[2023-01-17] MEDS: KETOROLAC 15 MG/ML VIAL (*BKC) IV PUSH (10:17)
[2023-01-17 10:33] LABS: Add Urine Microscopic? NO
[2023-01-17 11:00] VITALS: BP 140/80; PULSE 60; RESP 16; TEMP 36.4; O2SAT 98
== END 2023-01-17 11:02 | disposition home or self-care (01) ==
PROVIDERS: Emergency Provider Physician Assistant; PCP Physician Assistant
DX: S29.012A Strain of muscle and tendon of back wall of thorax, initial encounter (principal); E11.9 Type 2 diabetes mellitus without complications; I10 Essential (primary) hypertension; Z86.711 Personal history of pulmonary embolism; Z98.1 Arthrodesis status; F17.210 Nicotine dependence, cigarettes, uncomplicated; Z79.01 Long term (current) use of anticoagulants; X58.XXXA Exposure to other specified factors, initial encounter
CPT/HCPCS: 36415; 74176; 80053; 81003; 85025; 96374; 99284; J1885

== ENCOUNTER 2023-06-28 07:05 | Observation (INO) | payer OTHER, SELFPAY ==
[2023-06-28] VITALS (15 sets, daily range): BP systolic 101–142; BP diastolic 64–88; PULSE 54–77; RESP 15–22; TEMP 36.3–36.6; O2SAT 99–100
--- NOTE | ~2023-06-28 | XR_ITS ---
EXAMINATION: XR chest 2V DATE: 06/28/2023 07:34 INDICATION: Chest pain. TECHNIQUE: Frontal and lateral views of the chest were obtained. COMPARISON: Chest 2 views 04/13/2022, CT abdomen and pelvis 01/17/2023 FINDINGS: There is no pneumonia, pleural effusion, or pneumothorax. The heart size is normal. IMPRESSION: 1. No acute cardiopulmonary disease. Reviewed, dictated and finalized at location A. ING CLERK
--- NOTE | 2023-06-28 07:08 | ECG_ITS ---
Measurements Intervals [place] Rate: 67 P: 53 SC: 158 QRS: 39 QRSD: 95 T: 32 QT: 378 QTc: 401 Interpretive Statements SINUS RHYTHM NORMAL ECG COMPARED TO ECG 06/12/2022 17:58:02 NO SIGNIFICANT CHANGES Electronically Signed On 06-28-2023 8:22:21 ADOBE FLEX DEVELOPER by Ronald Lyn M.D.
[2023-06-28 07:31] LABS: Basophils Percent Auto 0.5 % (0.2-1.2); Eosinophils Absolute Auto 0.2 K/mm3 (0-0.3); Eosinophils Percent Auto 3.4 % (0-4.4); Hematocrit 37.5 % (37.0-47.0); Hemoglobin 12.2 g/dL (12.0-15.0); Immature Granulocyte Absolute 0.01 K/mm3 (0.00-0.031); Immature Granulocyte Percent A 0.2 % (0-0.5); Lymphocytes Absolute Auto 2.31 K/mm3 (0.9-3.2); Lymphocytes Percent Auto 39.7 % (18.3-44.2); Mean Corpuscular HGB Conc 32.5 g/dl (32-36); Mean Corpuscular Hemoglobin 28.5 pg (26-34); Mean Corpuscular Volume 87.6 fl (80-100); Mean Platelet Volume 12.3 fl (7.4-10.4); Monocytes Absolute Auto 0.7 K/mm3 (0.1-0.6); Monocytes Percent Auto 11.3 % (2.6-8.5); Neutrophils Absolute Auto 2.6 K/mm3 (1.3-6.7); Neutrophils Percent Auto 44.9 % (45.5-73.1); Platelet Count Result 172 k/mm3 (150-375); Red Blood Count 4.28 M/mm3 (4.2-5.4); Red Cell Distribution Width 15.3 % (11.5-14.5); White Blood Count 5.8 K/mm3 (4.5-10.0)
[2023-06-28 07:41] LABS: Alanine Aminotransferase 21 U/L (6-35); Albumin Level 3.5 g/dL (3.5-5.1); Alkaline Phosphatase 84 U/L (38-126); Anion Gap 5 mmol/L (8-16); Aspartate Amino Transferase 33 U/L (14-36); Bilirubin,Total 0.5 mg/dL (0.2-1.3); Blood Urea Nitrogen 14 mg/dL (7-17); Calcium 8.5 mg/dL (8.4-10.2); Carbon Dioxide 23 mmol/L (22-30); Chloride 109 mmol/L (98-107); Estimated CRCL calculation 96 ml/min; Estimated Glomerular Filt Rate > 60; Glucose 104 mg/dL (65-110); Lipase 126 U/L (23-300); Sodium 137 mmol/L (137-145)
[2023-06-28 07:42] LABS: INR 1.7; Prothrombin Time 21.4 Seconds (11.1-14.7)
[2023-06-28 07:43] LABS: Partial Thromboplastin Time 37.5 SECONDS (22.3-36.8)
[2023-06-28 07:52] LABS: Atypical Lymphocytes Present; Hypochromasia 1+ (NORMAL); Platelet Estimate Adequate (Adequate); Schistocytes None Seen (NORMAL)
[2023-06-28] MEDS: BELLADONNA ALK/PHENOB ELIX 10 ML, MAG HYDROX/ALUMINUM HYD/SIMETH 30 ML, LIDOCAINE HCL 2... PO (07:55)
[2023-06-28 07:57] LABS: Troponin I 0.041 ng/mL (0.000-0.034)
--- NOTE | 2023-06-28 08:45 | ED.CHESTPAIN ---
HPI - Chest Pain General Chief Complaint: Chest Pain Stated Complaint: Chest pain Time Seen by Provider: 06/28/23 07:19 History of Present Illness HPI narrative: Patient is a 40-year-old female who presents ER with left-sided chest pain. sharp and sudden onset. Woke her from sleep. No radiation. Reports chronic tingling and numbness to her left arm and neck due to cervical spine issues. Patient has history of PE and is on warfarin and has a IVC filter. No difficulty breathing. No pain with deep breath. No aggravating or alleviating factors. Only slight central pressure at this time. Patient did have acid reflux with vomiting upon experiencing this discomfort as well. Reports she had some pasta last night with red sauce and also had a mixed drink that she is not typically have. Also reports no real history of acid reflux. Related Data Home Medications Medication Instructions Recorded Confirmed baclofen 20 mg tablet 20 mg PO TID 02/10/22 06/12/22 cholecalciferol (vitamin D3) 50 50 mcg PO DAILY 02/10/22 06/12/22 mcg (2,000 unit) capsule (Vitamin D3) warfarin 3 mg tablet 8 mg PO DAILY 02/10/22 06/12/22 bupropion HCl 150 mg tablet,12 hr 150 mg PO BID 06/12/22 06/12/22 sustained-release Allergies Allergy/AdvReac Type Severity Reaction Status Date / Time amoxicillin Allergy Intermediate Rash Verified 06/28/23 07:27 azithromycin [From Zithromax] Allergy Intermediate Rash Verified 06/28/23 07:27 Bleach (Sodium Hypochlorite) Allergy Intermediate Rash Verified 06/28/23 07:27 adhesive tape Allergy Rash Verified 06/28/23 07:27 morphine Allergy Itching Verified 06/28/23 07:27 oxycodone [From Percocet] Allergy Itching Verified 06/28/23 07:27 Review of Systems Review of Systems: All systems reviewed & are unremarkable except as noted in HPI and below ENT: Reports system reviewed and no additional complaints, except as documented Cardiovascular: Cardiovascular: Reports chest pain and Reports radiating jaw, neck or arm pain Respiratory: Respiratory: Reports no additional respiratory complaints Gastrointestinal: Gastrointestinal: Denies abdominal pain, Reports heartburn, Denies diarrhea, Reports nausea and Reports vomiting PMFSH Past Medical History Medical History 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 Diabetes Patient says she does not take any medications anymore due to controlled with diet Hypertension Patient says she does not take any medications anymore due to controlled with diet Lipoma of extremity Removed from RT thigh Pulmonary embolism Smoker Surgical History Surgical History History of carpal tunnel surgery bilateral History of spinal fusion 09/2017-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 HEAD: Normocephalic, atraumatic. ENT: Mucous membranes moist. NECK: Supple. CHEST: Clear to auscultation. No respiratory distress. HEART: Regular rate and rhythm. Normal peripheral pulses. ABDOMEN: Soft, nontender, nondistended. EXTREMITIES: Normal range of motion. No edema. SKIN: Warm, dry, no rash. NEURO: Alert and oriented x3. PSYCH: Normal mood and affect. Course Course Emergency Course: patient educat
--- NOTE | 2023-06-28 08:50 | ECG_ITS ---
Measurements Intervals [place] Rate: 59 P: 57 MT: 183 QRS: 38 QRSD: 94 T: 35 QT: 396 QTc: 392 Interpretive Statements SINUS BRADYCARDIA OTHERWISE NORMAL ECG COMPARED TO ECG 06/28/2023 07:08:57 SINUS BRADYCARDIA NOW PRESENT Electronically Signed On 06-28-2023 10:25:51 DINKEY DRIVER by Ronald Lyn M.D.
--- NOTE | 2023-06-28 08:50 | PC.NURSE ---
Pt brazer helper induction light to report I am having Chest Pain again. Per EDP Dr Frank BURGESS, get an EKG stat and then give PO Nitro.
[2023-06-28] MEDS: NITROGLYCERIN SL 0.4 MG TABLET (08:57)
--- NOTE | 2023-06-28 08:57 | PC.NURSE ---
1st SL tab given at this time per Dr Frank BURGESS, pt rates her pain a 2/10 at this time, left chest, describes as tightness
--- NOTE | 2023-06-28 09:03 | PC.NURSE ---
Pt denies Chest pain/tightness at this time, pt had one SL nitro tab. EDP made aware. Pt updated, repositioned, discussing POC w/ Dr Mraie at bedside.
--- NOTE | 2023-06-28 09:19 | PM.CNCAR ---
Assessment and Plan Assessment and plan (1) Chest pain: Code(s): R07.9 - Chest pain, unspecified Status: Acute Assessment and Plan: Differential includes ACS, musculoskeletal, radiculopathy. Chest pain resolved. Troponin slightly elevated at .041. EKG has no ST changes. Trend troponin. If troponin does not increase much then will order stress test, otherwise [facility]. Check lipid panel. Check echo. (2) History of recurrent deep vein thrombosis (DVT): Code(s): Z86.718 - Personal history of other venous thrombosis and embolism Status: Acute Assessment and Plan: Hold Warfarin in case C is needed. (3) Smoker: Code(s): F17.200 - Nicotine dependence, unspecified, uncomplicated Status: Acute Assessment and Plan: Counseled regarding smoking cessation. History of Present Illness History of Present Illness Consult date/time: 06/28/23 09:19 Reason For Visit: Chest pain Narrative: 48 yr old woman presents to ER with chest pain. She has a history of DVT/PE on warfarin from 2004 and recurrent in 2018 after spinal surgery and was sedentary from it, smoking. Reports she woke up this morning with sharp lightning pain radiating from her left neck/shoulder to her chest for several seconds that resolved. Then she had some heart burn and had small vomit with it. She has chronic pain and paresthesias in left arm/hand and chronic decrease sensation in right side UE and LE since spinal surgery. She is able to walk miles without any problems. She smokes 1/e ppd. Denies sob, orthopnea, PND, edema, dizziness, palpitations. Review of Systems Review of Systems: All systems reviewed & are unremarkable except as noted in HPI and below Constitutional: Constitutional: Reports as per HPI, Denies chills and Denies fever(s) Cardiovascular: Cardiovascular: Reports as per HPI, Reports chest pain and Denies irregular heart rhythm Respiratory: Respiratory: Reports as per HPI and Denies dyspnea Gastrointestinal: Gastrointestinal: Reports as per HPI and Denies abdominal pain Genitourinary: Genitourinary: Reports as per HPI and Denies dysuria Musculoskeletal: Musculoskeletal: Reports as per HPI, Reports arthralgias, Reports neck pain, Reports numbness and Reports tingling Neurologic: Reports as per HPI, Denies dizziness and Denies syncope [facility] Past Medical History Medical History 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 Diabetes Patient says she does not take any medications anymore due to controlled with diet Hypertension Patient says she does not take any medications anymore due to controlled with diet Lipoma of extremity Removed from RT thigh Pulmonary embolism Smoker Surgical History Surgical History History of carpal tunnel surgery bilateral History of spinal fusion 09/2017-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 Family History Family History Father Hypertension Mother Hypertension Diabetes mellitus Social History Social History Smoking packs per day: 1 Smoking cigarettes per day: 20.0 Years smoked: 24 Smoking pack-years: 24.00 Smoking status: Current every day smoker Tobacco type: cigarettes Substance use: current Substance use type: marijuana Living arrangements: with family Occupation/Education: unemployed Gender identity (if verbalized by the patient): Female Meds Home Medications and Allergies Home Medications Medication Instructions Recorded Confirmed Type baclofen 20 mg tablet 20 mg PO TID 02/10/22 06/12/22 History cholecalciferol (vitamin D3) 50 50 mcg PO DAILY 02/10/22 06/12/22 History mcg (2,000 unit) capsule (Vitamin D3) warfarin 3 mg tablet 8 mg PO DAILY 02/10/22 06/12/22 History bupropion HCl 150 mg tablet,12 hr 1
--- NOTE | 2023-06-28 10:09 | ECG_ITS ---
Measurements Intervals [place] Rate: 52 P: -4 CO: 190 QRS: 18 QRSD: 97 T: 27 QT: 414 QTc: 385 Interpretive Statements SINUS BRADYCARDIA OTHERWISE NORMAL ECG COMPARED TO ECG 06/28/2023 08:54:56 NO SIGNIFICANT CHANGES Electronically Signed On 06-28-2023 10:32:58 IT SUPPORT SPECIALIST by Ronald Lyn M.D.
[2023-06-28 10:37] LABS: Cholesterol 178 mg/dL (0-200); HDL Direct 56 mg/dL; Triglycerides 66 mg/dL (<150)
[2023-06-28 10:48] LABS: LDL Cholesterol Direct 97 mg/dL
[2023-06-28 10:55] LABS: Troponin I 0.039 ng/mL (0.000-0.034)
--- NOTE | 2023-06-28 11:05 | PC.NURSE ---
Lunch tray ordered at this time
--- NOTE | 2023-06-28 13:36 | PM.IMHP ---
H&P: HPI History of Present Illness Date/Time: 06/28/23 13:36 Chief Complaint: Chest pain Narrative: Patient is a 40-year-old female who presents ER with left-sided chest pain. sharp and sudden onset.? Woke her from sleep.? No radiation.? Reports chronic tingling and numbness to her left arm and neck due to cervical spine issues.? Patient has history of PE and is on warfarin and has a IVC filter.? No difficulty breathing.? No pain with deep breath.? No aggravating or alleviating factors.? ? Only slight central pressure at this time.? Patient did have acid reflux with vomiting upon experiencing this discomfort as well.? Reports she had some pasta last night with red sauce and also had a mixed drink that she is not typically have.? Also reports no real history of acid reflux. Review of Systems Review of Systems: - CONSTITUTIONAL: Denies weight loss, fever and chills. - HEENT: Denies changes in vision and hearing - RESPIRATORY: Denies SOB and cough. - CV: See HPI - GI: Denies abdominal pain, nausea, vomiting and diarrhea. - : Denies dysuria and urinary frequency. - MSK: Denies myalgia and joint pain. - SKIN: Denies rash and pruritus. - NEUROLOGICAL: Denies headache and syncope. - PSYCHIATRIC: Denies recent changes in mood. Denies anxiety and depression. 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 Family History Family History Father Hypertension Mother Hypertension Diabetes mellitus Social History Social History Smoking packs per day: 1 Smoking cigarettes per day: 20.0 Years smoked: 24 Smoking pack-years: 24.00 Smoking status: Current every day smoker Tobacco type: cigarettes Substance use: current Substance use type: marijuana Living arrangements: with family Occupation/Education: unemployed Gender identity (if verbalized by the patient): Female Meds Home Medications and Allergies Home Medications Medication Instructions Recorded Confirmed Type baclofen 20 mg tablet 20 mg PO TID 02/10/22 06/12/22 History cholecalciferol (vitamin D3) 50 50 mcg PO DAILY 02/10/22 06/12/22 History mcg (2,000 unit) capsule (Vitamin D3) warfarin 3 mg tablet 8 mg PO DAILY 02/10/22 06/12/22 History bupropion HCl 150 mg tablet,12 hr 150 mg PO BID 06/12/22 06/12/22 History sustained-release Allergies Allergy/AdvReac Type Severity Reaction Status Date / Time amoxicillin Allergy Intermediate Rash Verified 06/28/23 07:27 azithromycin [From Zithromax] Allergy Intermediate Rash Verified 06/28/23 07:27 Bleach (Sodium Hypochlorite) Allergy Intermediate Rash Verified 06/28/23 07:27 adhesive tape Allergy Rash Verified 06/28/23 07:27 morphine Allergy Itching Verified 06/28/23 07:27 oxycodone [From Percocet] Allergy Itching Verified 06/28/23 07:27 Vital Signs Vital Signs - 24 hr 06/28/23 07:16 06/28/23 07:21 06/28/23 07:58 Temperature 97.8 F Pulse Rate 71 66 69 Respiratory Rate 15 16 Blood Pressure 125/88 121/86 Pulse Oximetry 100 100 Oxygen Delivery Room Air 06/28/23 08:47 06/28/23 08:58 06/28/23 09:50 Temperature Pulse Rate 61 64 54 L Respiratory Rate 22 H 17 17 Blood Pressure 123/76 101/70 Pulse Oximetry 100 100 100 Oxygen Delivery 06/28/23 10:40 06/28/23 11:07 06/28/23 12:03 Temper
[2023-06-28 14:08] LABS: Troponin I 0.034 ng/mL (0.000-0.034)
[2023-06-28] MEDS: HYDROcodone/acetaminophen (*CRX) 5-325 MG TABLET 1 TAB PO ×2 (17:14→21:18)
[2023-06-29] VITALS: PULSE 56; PULSE 61; RESP 18; O2SAT 100
[2023-06-29 00:36] VITALS: BP 122/65; PULSE 55; RESP 18; TEMP 36.6; O2SAT 100
[2023-06-29 02:00] VITALS: PULSE 55
[2023-06-29 04:00] VITALS: PULSE 55; RESP 18; O2SAT 100
--- NOTE | 2023-06-29 05:41 | PC.NURSE ---
Informed by Yina CAMPA that patient is wanting to sign out AMA. Spoke with patient and she states she has been here since 7am yesterday, she has not seen a physician, no one explained her CXR, and if it had been serious they would have done something by now. She often has this pain and she usually gets sent home. Despite H&P from Dr Vance, I offered to call the Hospitalist datastage consultant edilmylene to come speak with her. Patient asks what is that going to do? I don't feel stressed and my tests are getting better. The tests she is referring to are her troponin. Explained to patient that this is the normal cardiac work up for chest pain, and I can not make her stay, but if her pain was cardiac related her leaving could put her life in danger. Patient states she understands and if she has chest pain she is concerned about she will come back. Discussed echo and stress test that were planned for today and patient states she will follow up with her physician and do them outpatient. Patient signed AMA form with Yina Liang and This nurse present. IV and heart monitor removed. Dr Iverson notified patient leaving AMA. Patient escorted to ER by Yina CAMPA.
--- NOTE | 2023-06-29 09:21 | P.DS_ITS ---
DS: Admitting Diagnosis Discharge Date 06/29/23 Admitting Diagnosis CHEST PAIN DS: Discharge Diagnosis Discharge Diagnosis (1) Chest pain: Code(s): R07.9 - Chest pain, unspecified Status: Acute (2) History of recurrent deep vein thrombosis (DVT): Code(s): Z86.718 - Personal history of other venous thrombosis and embolism Status: Acute DS: Summary Hospital Course Hospital Course: 40-year-old female presented with left-sided chest pain sharp and sudden onset.? No radiation.? She has chronic left arm numbness due to her cervical spine issues.? History of PE and on warfarin also has IVC filter in place.? No pleuritic chest pain.? No aggravating or alleviating factor.? Have symptoms of acid reflux which is not a chronic issue for her.? Recent enrollment in exercise therapy Vitals were stable.? EKG with no ST-T changes.? Chest x-ray with no acute cardiopulmonary disease.? Laboratory evaluation with normal cbc and CMP.? Initial troponin was 0.041 subsequent troponin 0.039 AND 3RD set BEING NORMAL. Cardiology has been consulted as well.? And was planning to do stress test. Underlying tobacco abuse. Suspect musculoskeletal in origin. She however decided to leave against medical advise prior to our reevaluation this a.m. DVT prophylaxis already on warfarin which will be held today in case he will need to go for [facility]. Chronic cervical spine disease Chronic recurrent DVT with mildly subtherapeutic INR Code status full code Time Spent with Patient Time attestation: Total time spent providing and/or coordinating discharge services: 5 minutes DS: Data Data Completed and Pending Labs on day of discharge: Labs from last 24 hours 06/28/23 06/28/23 13:40 10:20 Troponin I 0.034 0.039 H* Triglycerides 66 Cholesterol 178 LDL Cholesterol Direct 97 HDL Direct 56 Imaging Radiologist's impression: ITS Impressions Chest X-Ray 06/28/23 07:38 IMPRESSION: 1. No acute cardiopulmonary disease. Discharge Plan Discharge Consulting providers: Caden Norwood Patient Disposition: Left Against Medical Advice Patient Instructions: Warfarin (By mouth) Discharge Medications: No Action warfarin 3 mg tablet 8 mg PO DAILY cholecalciferol (vitamin D3) [Vitamin D3] 50 mcg (2,000 unit) capsule 50 mcg PO DAILY tizanidine 4 mg Tablet 4 mg PO PRN (Reason: Muscle Spasm) Date of admission: 06/28/23 08:48 Primary Care Provider: KimberlyLety Admitting Provider: Levar Vance Attending physician on admission: Levar Vance Condition: Stable
== END 2023-06-29 05:45 | disposition left against medical advice (07) ==
LOC: ANHED 08:48 → ANHIMU 09:29
PROVIDERS: Internal Medicine Cardiovascular Disease; Admitting Provider Internal Medicine; Emergency Provider Emergency Medicine; PCP Physician Assistant; Visit Provider Internal Medicine
DX: R07.9 Chest pain, unspecified (principal); R00.1 Bradycardia, unspecified; E11.9 Type 2 diabetes mellitus without complications; I10 Essential (primary) hypertension; Z95.828 Presence of other vascular implants and grafts; Z98.890 Other specified postprocedural states; F17.210 Nicotine dependence, cigarettes, uncomplicated; F12.90 Cannabis use, unspecified, uncomplicated; Z86.718 Personal history of other venous thrombosis and embolism; Z79.01 Long term (current) use of anticoagulants; Z79.899 Other long term (current) drug therapy
CPT/HCPCS: 36415; 71046; 80053; 80061; 83690; 84484; 85025; 85610; 85730; 93005; 99285; A9270; G0378; G0379

== ENCOUNTER 2023-08-10 08:37 | Outpatient (CLI) | payer OTHER, SELFPAY ==
--- NOTE | 2023-08-10 09:20 | EST_ITS ---
Patient Info Name: Varsha Epperson Age: 48 years : 1975 Gender: Female Ht: 68 in Wt: 229 lbs BSA: 2.27 m2 HR: 59 bpm BP: 146 / 103 mmHg Heart Rhythm: Sinus Rhythm Exam Date: 08/10/2023 9:33 AM Exam Location: Echo Lab Patient Status: Outpatient Admit Date: 08/10/2023 Staff Ordering Physician: Caden Norwood DO Attending Provider: Caden Norwood DO Exercise Technologist: Idalmis Daniels CT Exercise Physician: Caden Norwood DO Exam Type: CA stress test treadmill Study Info Indications R07.89 - Other chest pain A treadmill exercise stress test was performed. Summary 1. 1. Negative Galindo exercise stress test for ischemic ST changes by ECG criteria. 2. 2. Reduced functional capacity, achieving 7 METs of workload. 3. 3. Baseline hypertension. 4. 4. Appropriate HR response to exercise. 5. 5. Appropriate HR recovery at 1 minute post exercise. 6. 6. No imaging with stress testing. 7. 7. Patient informed of the above results. Protocol: [place] Stress ECG Details Stage: REST Duration (min): 0 min : 58 sec Speed (mph): 0.0 Grade (%): 0 HR (bpm): 63 SBP (mmHg): 146 DBP (mmHg): 103 METS: --- Stage: REST Duration (min): 4 min : 5 sec Speed (mph): 0.0 Grade (%): 0 HR (bpm): 65 SBP (mmHg): 146 DBP (mmHg): 103 METS: --- Stage: STAGE 1 Duration (min): 1 min : 0 sec Speed (mph): 1.7 Grade (%): 10 HR (bpm): 98 SBP (mmHg): 146 DBP (mmHg): 103 METS: --- Stage: STAGE 1 Duration (min): 2 min : 0 sec Speed (mph): 1.7 Grade (%): 10 HR (bpm): 121 SBP (mmHg): 146 DBP (mmHg): 103 METS: --- Stage: STAGE 1 Duration (min): 3 min : 0 sec Speed (mph): 1.7 Grade (%): 10 HR (bpm): 124 SBP (mmHg): 149 DBP (mmHg): 88 METS: --- Stage: STAGE 2 Duration (min): 1 min : 0 sec Speed (mph): 2.5 Grade (%): 12 HR (bpm): 136 SBP (mmHg): 149 DBP (mmHg): 88 METS: --- Stage: STAGE 2 Duration (min): 1 min : 52 sec Speed (mph): 2.5 Grade (%): 12 HR (bpm): 147 SBP (mmHg): 168 DBP (mmHg): 90 METS: --- Stage: RECOVERY Duration (min): 0 min : 7 sec Speed (mph): 1.5 Grade (%): 0 HR (bpm): 148 SBP (mmHg): 168 DBP (mmHg): 90 METS: --- Stage: RECOVERY Duration (min): 1 min : 7 sec Speed (mph): 0.0 Grade (%): 0 HR (bpm): 119 SBP (mmHg): 168 DBP (mmHg): 90 METS: --- Stage: RECOVERY Duration (min): 2 min : 7 sec Speed (mph): 0.0 Grade (%): 0 HR (bpm): 86 SBP (mmHg): 168 DBP (mmHg): 90 METS: --- Stage: RECOVERY Duration (min): 3 min : 6 sec Speed (mph): 0.0 Grade (%): 0 HR (bpm): 81 SBP (mmHg): 154 DBP (mmHg): 91 METS: --- Rest HR: 65 bpm Peak HR: 149 bpm Rest Sys BP: 146 mmHg Peak Sys BP: 168 mmHg Max Pred HR: 172 bpm % Max Pred HR: 87 % Target HR: 146 bpm Max RPP: 25,032 bpm*mmHg Lees Score: 1 Termination Reason: Reached target heart rate or workload Cardiac Symptoms: Shortness of breath, Baseline CP 3/10 that resolved with exercise Ma
== END 2023-08-10 08:38 | disposition home or self-care (01) ==
LOC: ANHCARD 08:38
PROVIDERS: PCP Physician Assistant; Visit Provider Internal Medicine Cardiovascular Disease
DX: R07.89 Other chest pain (principal)
CPT/HCPCS: 93017

== ENCOUNTER 2023-10-20 07:24 | Outpatient (CLI) | payer OTHER, SELFPAY ==
--- NOTE | ~2023-10-20 | XR_ITS ---
EXAMINATION: XR cervical spine 4-5V DATE: 10/20/2023 07:42 INDICATION: Radiculopathy, cervical region. TECHNIQUE: 7 views of cervical spine including flexion and extension views were obtained. COMPARISON: Cervical spine MRI 12/02/2022 FINDINGS: There is 5 degrees dextrocurvature of cervical spine. There are changes of posterior fusion procedure from C3 to C6 with lateral mass screws. There is no abnormal motion on flexion or extensio n. Vertebral body heights are normal. There is moderately decreased disc height at C4-C5 and C5-C6. T here are laminectomies from C3 to C6. There is multilevel mild facet joint hypertrophy. No central ca nal stenosis or prevertebral soft tissue swelling. IMPRESSION: 1. Posterior fusion procedure from C3 to C6. Reviewed, dictated and finalized at location A.
== END 2023-10-20 07:25 | disposition home or self-care (01) ==
LOC: ANHIMG 07:25
PROVIDERS: PCP Physician Assistant; Visit Provider Nurse Practitioner Adult Health
DX: M54.12 Radiculopathy, cervical region (principal); Z98.1 Arthrodesis status
CPT/HCPCS: 72050

== ENCOUNTER 2023-10-27 10:27 | Outpatient (CLI) | payer OTHER, SELFPAY ==
--- NOTE | ~2023-10-27 | CT_ITS ---
Non-contrast CT scan of the Abdomen and Pelvis Clinical indication: Right flank pain Technique: 2.5 mm axial scans were obtained through the abdomen and pelvis without intravenous or or al contrast. Dose reduction technique was used on this scan by utilizing automated exposure control a nd iterative reconstruction technique. The dose-length product (DLP) was 981.05 mGy-cm. COMPARISON: 01/17/2023 Findings: Images through the lung bases reveal stable 5 mm left basilar pulmonary nodule. There is no evidence of renal or ureteral calculi. The kidneys and the ureters are nondilated. The liver, spleen, pancreas, and adrenals appear normal. Cholecystectomy clips are present. There is no aortic aneurysm. IVC filter present. There is no evidence of bowel obstruction. Images through the pelvis were performed. There is no evidence of ascites or lymphadenopathy. Urinary bladder unremarkable. 6.9 x 5.0 cm mass just into the uterus, probably hyperintense, with rounded hy podense areas, which is essentially stable from prior exam. Impression: No acute abnormality evident. Probable 6.9 x 5.0 cm exophytic, degenerating fibroid, stable from prior exam. Stable 5 mm left basilar pulmonary nodule. Reviewed, dictated and finalized at [facility]. Impression: No acute abnormality evident. Probable 6.9 x 5.0 cm exophytic, degenerating fibroid, stable from prior exam. Stable 5 mm left basilar pulmonary nodule.
== END 2023-10-27 10:28 | disposition home or self-care (01) ==
LOC: ANHIMG 10:27
PROVIDERS: PCP Physician Assistant; Visit Provider Internal Medicine Cardiovascular Disease
DX: I26.99 Other pulmonary embolism without acute cor pulmonale (principal); I82.90 Acute embolism and thrombosis of unspecified vein; Z95.828 Presence of other vascular implants and grafts; R91.1 Solitary pulmonary nodule
CPT/HCPCS: 74176

== ENCOUNTER 2024-05-15 20:58 | Emergency (ER) | payer OTHER, SELFPAY ==
[2024-05-15 21:00] VITALS: BP 144/85; PULSE 110; RESP 20; O2SAT 100
--- NOTE | 2024-05-15 21:25 | PC.NURSE ---
Patient approached triage desk @ [id number] stating that she was going to be seen at another hospital. Iv removed with tip intact. Pt ambulated to ed exit with steady gait and no signs of distress.
== END 2024-05-15 21:25 | disposition left against medical advice (07) ==
PROVIDERS: PCP Physician Assistant
DX: M54.9 Dorsalgia, unspecified (principal)
CPT/HCPCS: 99199

== ENCOUNTER 2024-05-24 09:00 | Emergency (ER) | payer OTHER, SELFPAY ==
--- NOTE | ~2024-05-24 | XR_ITS ---
3 VIEWS THORACIC SPINE Ordering provider: Lety Kelly APRN History: . fall yesterday,pain left shoulder mid back . Comparison: None. FINDINGS: VERTEBRAL BODIES: Normal height and alignment. No visible fracture or subluxation. Degenerative renee es of the spine. Postoperative changes in the cervical area. DISK SPACES: Multilevel degenerative disc disease. SOFT TISSUES: Normal. IMPRESSION: No acute osseous abnormality of the thoracic spine. Reviewed, dictated and finalized at location A. ARTIST
--- NOTE | ~2024-05-24 | XR_ITS ---
XR shoulder LT min 2V Ordering provider: Lety Kelly APRN History: . fall yesterday,pain mid back left shoulder . Comparison: None. FINDINGS: BONES: No acute fracture or dislocation. Degenerative changes in the area of the greater tuberosity. JOINT SPACES: The acromioclavicular joint is normal. The glenohumeral joint is normal. SOFT TISSUES: Normal. IMPRESSION: No acute osseous abnormality left shoulder. Degenerative changes in the area of the greater tuberosity. Rotator cuff tear is not excluded. Reviewed, dictated and finalized at location A. IMPRESSION: No acute osseous abnormality left shoulder. Degenerative changes in the area of the greater tuberosity. Rotator cuff tear i s not excluded.
--- NOTE | 2024-05-24 09:09 | ED_ITS ---
HPI - Fall General Chief Complaint: Fall Stated Complaint: fall on ice last night/back and arm pain Time Seen by Provider: 05/24/24 09:10 Source: patient, RN notes reviewed and old records reviewed Mode of arrival: ambulatory Limitations: no limitations History of Present Illness HPI Narrative: Patient presents complaining of back pain and left shoulder pain after slip and fall on ice yesterday. Patient has lidocaine patches in place, reports that she is able to move the affected shoulder, but this causes greater pain. She denies hitting her head during the fall, states her left side took most of the fall. She denies any numbness or tingling. She denies any loss of bowel or bladder control. She has had spinal fusion surgery, so is somewhat worried about her hardware. She denies other injury and trauma, voices no other concerns at this time Related Data Home Medications ?Medication ?Instructions ?Recorded ?Confirmed ?Last Taken ?Type cholecalciferol (vitamin D3) 50 50 mcg PO DAILY 02/10/22 05/24/24 06/26/23 09:00 History mcg (2,000 unit) capsule (Vitamin D3) warfarin 3 mg tablet 8 mg PO DAILY 02/10/22 05/24/24 06/27/23 20:00 History tizanidine 4 mg tablet 4 mg PO Q8H PRN Muscle Spasm 06/28/23 05/24/24 06/25/23 20:00 History lidocaine 5 % topical patch 1 patch topical Q24H 05/24/24 05/24/24 Unknown History Allergies Allergy/AdvReac Type Severity Reaction Status Date / Time bee venom protein (honey Allergy Severe Itching Verified 05/24/24 09:05 bee) (bees) amoxicillin Allergy Intermediate Rash Verified 05/24/24 09:05 azithromycin (From Zithromax) Allergy Intermediate Rash Verified 05/24/24 09:05 Bleach (Sodium Hypochlorite) Allergy Intermediate Rash Verified 05/24/24 09:05 adhesive tape Allergy Rash Verified 05/24/24 09:05 morphine Allergy Itching Verified 05/24/24 09:05 oxycodone (From Percocet) Allergy Itching Verified 05/24/24 09:05 Review of Systems 2 Review of Systems: All systems reviewed & are unremarkable except as noted in HPI and below Constitutional: Constitutional: Reports no additional constitutional complaints ENT: Reports system reviewed and no additional complaints, except as documented Cardiovascular: Cardiovascular: Reports no additional cardiovascular complaints Respiratory: Respiratory: Reports no additional respiratory complaints Gastrointestinal: Gastrointestinal: Reports no additional gastrointestinal complaints Musculoskeletal: Musculoskeletal: Reports no additional musculoskeletal complaints and Reports as per HPI Neurologic: Reports system reviewed and no additional complaints, except as documented and Reports as per HPI [facility] Past Medical History Medical History Pulmonary embolism 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 Lipoma of extremity Removed from RT thigh Smoker Diabetes Patient says she does not take any medications anymore due to controlled with diet Hypertension Patient says she does not take any medications anymore due to controlled with diet Surgical History Surgical History History of carpal tunnel surgery bilateral History of spinal fusion 09/2017-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 Family History Family History Father Hypertension Mother Hypertension Diabetes mellitus Social History Social History Smoking packs per day: 0.5 Smoking cigarettes per day: 10.0 Years smoked: 25 Smoking pack-years: 12.50 Smoking status: Current every day smoker Tobacco type: cigarettes Second hand tobacco smoke exposure: No Alcohol intake: current Drinks per week: 1 Substance use: current Substance use type: marijuana Other substance usage details: medical marijuana Last use: 06/27/23 Do You Feel Safe in your Home?: Yes Lack of Transportation: No Lack of Food: Never True Current Housing: I Have Housing Concerned About Future Housing: No Difficulty Paying Gas/Electric Bills: No Difficulty Paying for Meds: No Currently Unemployed: YES Education: Bachelor's Degree Difficulty w/ Childcare or Family Care: No Living arrangements: with family Occupation/Education: unemployed Gender identity (if verbalized by the patient): Female Spiritual care concerns: No Comments At the time of my signature, I reviewed and agree with the nursing past medical, surgical, social, and family history. There is no relevant family history pertinent to the patient complaint. Exam 2 Const: General: cooperative, no acute distress, alert and awake O rientation/consciousness: oriented to person, oriented to place and oriented to time HENMT: Head: normal to inspection, normocephalic and atraumatic Mouth: Yes moist mucous membranes Resp: Effort & Inspection: normal respiratory effort and able to speak in complete sentences Auscultation: clear to auscultation bilaterally, no crackles, no rales, no rhonchi and no wheezes Cardio: Palpation: normal PMI Rate: regular rate Rhythm: regular rhythm Heart sounds: S1 normal heart sound present and S2 normal heart sound present Back/Spine/Pelvis: Back/spine/pelvis image: 1. tenderness Neuro: General: oriented to person, oriented to place and oriented to time Cranial nerves: Yes CN's II-XII intact bilaterally Extrem: Left upper extremity: full ROM and shoulder/upper arm tenderness of the A-C joint, axillary nerve sensory function normal and normal ROM; no swelling, no ecchymosis, no crepitus and no deformity Psych: Appearance: grossly normal Thought process: Normal thought process present Insight: Good insight present (Psych) Judgement: Good judgement present (Psych) Course Course Level of Care: Express Care Visit Vital Signs Vital signs: Reviewed MDM - Fall MDM Narrative Medical decision making narrative: Patient with slip and fall on ice yesterday. No head trauma. No deficits noted on exam. No abnormalities noted on x-ray. Start prednisone for anti- inflammatory, she is encouraged to follow with primary care provider Discharge instructions reviewed with patient, as well as provided in writing per nursing staff. The instructions also include specific and strict return/GO TO THE ER as well as f/u information. All questions have been answered, and the patient deny any further questions with discharge and discharge plan. Some parts of this dictation were generated by voice recognition software and may contain typographical and/or grammatical inaccuracies. Differential Diagnosis Differential diagnosis: Likely other (Fracture, musculoskeletal pain) Medical Records Attestation: I reviewed the patient's medical records. Imaging Data Attestation: I personally reviewed and interpreted this imaging study as follows: My impression: T-spine without acute finding, left shoulder without acute finding Radiologist's impression: [facility] [address] [place] [address] XRay Report Signed Patient: Varsha Epperson : 1975 MR#: [id number] Age: 48 Acct:[id number] Loc: [facility] ADM Date: 05/24/24Attending Dr: Ordering Physician: Lety Kelly FNP Date of Service: 05/24/24 Procedure(s): XR shoulder LT min 2V Accession Number(s): [id number] cc: Lety Kelly FNP~ XR shoulder LT min 2V Ordering provider: Lety Kelly APRN History: . fall yesterday,pain mid back left shoulder . Comparison: None. FINDINGS: BONES: No acute fracture or dislocation. Degenerative changes in the area of the greater tuberosity. JOINT SPACES: The acromioclavicular joint is normal. The glenohumeral joint is normal. SOFT TISSUES: Normal. IMPRESSION: No acute osseous abnormality left shoulder. Degenerative changes in the area of the greater tuberosity. Rotator cuff tear is not excluded. Reviewed, dictated and finalized at location A. MIZATION ANALYST Please be advised this is a medical document. It is intended for [id number]-[id number] communication. It is written in medical language and may contain unfamiliar abbreviations or verbiage. Medical documents are intended to carry relevant information, facts as evident, and the clinical opinion of the practitioner at the time of the encounter. This report may have been done utilizing a voice recognition system. Attempts have been made to correct errors. However, there may be uncorrected grammatical, spelling, and recognition errors present. The file time of this note does not necessarily represent the time the patient was seen. Dictated By: Mitesh Stephens MD 05/24/24 0950 Signed By: <Electronically signed by Mitesh Stephens MD in OV> 05/24/[address] [address] XRay Report Signed Patient: Varsha Epperson : 1975 MR#: [id number] Age: 48 Acct:[id number] Loc: [facility] ADM Date: 05/24/24Attending Dr: Ordering Physician: Lety Kelly FNP Date of Service: 05/24/24 Procedure(s): XR thoracic spine 2V Accession Number(s): [id number] cc: Lety Kelly FNP~ 3 VIEWS THORACIC SPINE Ordering provider: Lety Kelly APRN History: . fall yesterday,pain left shoulder mid back . Comparison: None. FINDINGS: VERTEBRAL BODIES: Normal height and alignment. No visible fracture or subluxation. Degenerative changes of the spine. Postoperative changes in the cervical area. DISK SPACES: Multilevel degenerative disc disease. SOFT TISSUES: Normal. IMPRESSION: No acute osseous abnormality of the thoracic spine. Reviewed, dictated and finalized at location A. MIZATION ANALYST Please be advised this is a medical document. It is intended for bbgb-wz-pdar communication. It is written in medical language and may contain unfamiliar abbreviations or verbiage. Medical documents are intended to carry relevant information, facts as evident, and the clinical opinion of the practitioner at the time of the encounter. This report may have been done utilizing a voice recognition system. Attempts have been made to correct errors. However, there may be uncorrected grammatical, spelling, and recognition errors present. The file time of this note does not necessarily represent the time the patient was seen. Dictated By: Mitesh Stephens MD 05/24/2448 Signed By: <Electronically signed by Mitesh Stephens MD in [place]> 05/24/24 0950 Discharge Plan Discharge Clinical Impression: Musculoskeletal pain Patient Disposition: Home, Self-Care Condition: Stable Instructions: Antibiotic Form, Fall Prevention (ED) Additional Instructions: Take medications as prescribed. Follow-up with primary care provider. Emergency department for new or worse symptoms Patient Language: Latvian Prescriptions: New prednisone 50 mg tablet 50 mg PO DAILY Qty: 5 0RF No Action warfarin 3 mg tablet 8 mg PO DAILY cholecalciferol (vitamin D3) [Vitamin D3] 50 mcg (2,000 unit) capsule 50 mcg PO DAILY lidocaine 5 % adhesive patch,medicated 1 patch topical Q24H tizanidine 4 mg Tablet 4 mg PO Q8H PRN (Reason: Muscle Spasm) Follow-up/Referrals: PHYSICIAN NOT ON STAFF,NONSTAFF [Primary Care Provider] - Time of Disposition: 10:02
[2024-05-24 09:10] VITALS: BP 136/73; PULSE 71; RESP 16; TEMP 36.9; O2SAT 100
== END 2024-05-24 10:08 | disposition home or self-care (01) ==
PROVIDERS: Emergency Provider Nurse Practitioner Family
DX: M25.512 Pain in left shoulder (principal); M54.6 Pain in thoracic spine
CPT/HCPCS: 72070; 73030; 99214; G0463

== ENCOUNTER 2024-07-30 18:32 | Emergency (ER) | payer OTHER, SELFPAY ==
[2024-07-30 18:41] VITALS: BP 149/84; PULSE 76; RESP 19; TEMP 36.6; O2SAT 100
--- NOTE | 2024-07-30 19:02 | ED_ITS ---
HPI - Skin/Abscess/Foreign Bdy General Chief complaint: Back Pain/Injury Stated complaint: Allergic Reaction/Right Lower Hip/Leg Pain Time Seen by Provider: 07/30/24 19:02 Source: patient Mode of arrival: ambulatory Limitations: no limitations History of Present Illness HPI narrative: 49 yo F presents with c/o rash to face. Itchy. Started after using face mask. Tried benadryl with no relief. Also reports hx of sciatica pain. lucia doing PT for R sided sciatica. Saw pain management 2 wks ago and given steroid shot with no relief. Taking tizanadine. Requesting more steroids. Ambulatory with steady gait. NO loss of bowel or bladder. All systems reviewed and negative except as noted above. Related Data Home Medications ?Medication ?Instructions ?Recorded ?Confirmed ?Last Taken ?Type cholecalciferol (vitamin D3) 50 50 mcg PO DAILY 02/10/22 05/24/24 06/26/23 09:00 History mcg (2,000 unit) capsule (Vitamin D3) warfarin 3 mg tablet 8 mg PO DAILY 02/10/22 05/24/24 06/27/23 20:00 History tizanidine 4 mg tablet 4 mg PO Q8H PRN Muscle Spasm 06/28/23 05/24/24 06/25/23 20:00 History lidocaine 5 % topical patch 1 patch topical Q24H 05/24/24 05/24/24 Unknown History Allergies Allergy/AdvReac Type Severity Reaction Status Date / Time bee venom protein (honey Allergy Severe Itching Verified 07/30/24 19:04 bee) (bees) amoxicillin Allergy Intermediate Rash Verified 07/30/24 19:04 azithromycin (From Zithromax) Allergy Intermediate Rash Verified 07/30/24 19:04 Bleach (Sodium Hypochlorite) Allergy Intermediate Rash Verified 07/30/24 19:04 adhesive tape Allergy Rash Verified 07/30/24 19:04 morphine Allergy Itching Verified 07/30/24 19:04 oxycodone (From Percocet) Allergy Itching Verified 07/30/24 19:04 Review of Systems Review of Systems: CONSTITUTIONAL: Denies fever, chills, or sweats. EYES: Denies visual changes, redness, or discharge. ENT: Denies rhinorrhea, congestion, sore throat, or otalgia. CARDIOVASCULAR: Denies chest pain, palpitations, or edema. RESPIRATORY: Denies cough or dyspnea. GASTROINTESTINAL: Denies abdominal pain, nausea, vomiting, or diarrhea. GENITOURINARY: Denies dysuria or hematuria. SKIN: Reports rash and itching to face MUSCULOSKELETAL: Denies joint pain, or myalgia. Reports right-sided sciatica pain. NEUROLOGIC: Denies headache, numbness, or weakness. PSYCHIATRIC: Denies anxiety or depression. All other systems reviewed are negative, except as documented in HPI. 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 Family History Family History Father Hypertension Mother Hypertension Diabetes mellitus Social History Social History Smoking packs per day: 0.5 Smoking cigarettes per day: 10.0 Years smoked: 25 Smoking pack-years: 12.50 Smoking status: Current every day smoker Tobacco type: cigarettes Second hand tobacco smoke exposure: No Alcohol intake: current Drinks per week: 1 Substance use: current Substance use type: marijuana Other substance usage details: medical marijuana Last use: 06/27/23 Do You Feel Safe in your Home?: Yes Lack of Transportation: No Lack of Food: Never True Current Housing: I Have Housing Concerned About Future Housing: No Difficulty Paying Gas/Electric Bills: No Difficulty Paying for Meds: No Currently Unemployed: YES Education: Bachelor's Degree Difficulty w/ Childcare or Family Care: No Living arrangements: with family Occupation/Education: unemployed Gender identity (if verbalized by the patient): Female Spiritual care concerns: No Comments At time of signature, agree with nursing past medical, surgical, social and family history. There is no relevant family history pertinent to the presenting complaint. Exam Narrative: GENERAL: This is a well-nourished, well-developed patient, in no apparent distress. HEAD: normocephalic, atraumatic. EYES: PERRL. Sclera clear/white. Vision is grossly intact. EARS: External ears normal NOSE: External nose normal NECK: Neck supple, non-tender without lymphadenopathy, masses or thyromegaly. CARDIOVASCULAR: Regular rate and rhythm without murmurs, gallops, or rubs. RESPIRATORY: Clear to auscultation. Breath sounds equal bilaterally. No wheezes, rales, or rhonchi. SKIN: warm, Dry, intact with no suspicious lesions , good texture and turgor. erythematous maculopapular rash to both cheeks and dorsal aspects of hands NEURO: awake, alert, and oriented to person, place and time. There were no obvious focal neurologic abnormalities. BACK: R sided SI joint tenderness on palpation Course Course Level of Care: Express Care Visit Vital Signs Vital signs: Vital Signs Temperature 36.6 C 07/30/24 18:41 Pulse Rate 76 07/30/24 18:41 Respiratory Rate 19 07/30/24 18:41 Blood Pressure 149/84 H 07/30/24 18:41 Pulse Oximetry 100 07/30/24 18:41 Oxygen Delivery Room Air 07/30/24 18:41 Temperature 36.6 C 07/30/24 18:41 Pulse Rate 76 07/30/24 18:41 Respiratory Rate 19 07/30/24 18:41 Blood Pressure 149/84 H 07/30/24 18:41 Pulse Oximetry 100 07/30/24 18:41 Oxygen Delivery Room Air 07/30/24 18:41 reviewed MDM - Skin/Abscess/Foreign Bdy MDM Narrative Medical decision making narrative: will treat patient's allergic reaction with steroids. Recommend she continue an xduo-xin-imwjiue antihistamine to treat allergic reaction symptoms. Will give prednisone for sciatica. Patient ambulatory with steady gait. No neuro deficits at [facility]. has a muscle relaxant prescribed by primary care physician and is seeing physical therapy for sciatica. Please be advised this is a medical document. It is intended for [id number] communication. It is written in medical language and may contain unfamiliar abbreviations or verbiage. Medical documents are intended to carry relevant information, facts as evident, and the clinical opinion of the practitioner at the time of the encounter. This report may have been done utilizing a voice recognition system. Attempts have been made to correct errors. However, there may be uncorrected grammatical, spelling, and recognition errors present. The file time of this note does not necessarily represent the time of service. Discharge Plan Discharge Clinical Impression: Contact dermatitis, Acute right-sided low back pain with sciatica Patient Disposition: Home, Self-Care Condition: Stable Instructions: Contact Dermatitis (ED) Additional Instructions: take prednisone as prescribed. Continue taking adit-cpq-[id number] antihistamine such as Claritin or Zyrtec to t reat allergic reaction symptoms. Alternate between ibuprofen and Tylenol every 4 hours to treat pain. Alternate between ice and heat. Continue sciatica stretches as directed by physical therapy. See your doctor if symptoms are not improving. Patient Language: Romanian Prescriptions: New prednisone 20 mg tablet See Rx Instructions .ROUTE .COMPLEX Qty: 12 0RF Rx Instructions: Take 3 tablets today, then 2 tablets daily for 3 days then 1 tablet daily for 3 days. No Action warfarin 3 mg tablet 8 mg PO DAILY cholecalciferol (vitamin D3) [Vitamin D3] 50 mcg (2,000 unit) capsule 50 mcg PO DAILY lidocaine 5 % adhesive patch,medicated 1 patch topical Q24H prednisone 50 mg tablet 50 mg PO DAILY Qty: 5 0RF tizanidine 4 mg Tablet 4 mg PO Q8H PRN (Reason: Muscle Spasm) cyclobenzaprine 5 mg tablet 5 mg PO TID PRN (Reason: muscle spasm) Qty: 20 0RF Follow-up/Referrals: Kimberly,LINDA Whitehead [Primary Care Provider] - Time of Disposition: 19:13
== END 2024-07-30 19:19 | disposition home or self-care (01) ==
PROVIDERS: Emergency Provider Nurse Practitioner Family; PCP Physician Assistant
DX: L25.9 Unspecified contact dermatitis, unspecified cause (principal); M54.41 Lumbago with sciatica, right side; F17.210 Nicotine dependence, cigarettes, uncomplicated; E11.9 Type 2 diabetes mellitus without complications; I10 Essential (primary) hypertension; Z86.711 Personal history of pulmonary embolism; Z86.2 Personal history of diseases of the blood and blood-forming organs and certain disorders involving the immune mechanism; Z79.01 Long term (current) use of anticoagulants
CPT/HCPCS: 99213; G0463

== ENCOUNTER 2024-08-10 08:00 | Outpatient (RCR) | payer OTHER, SELFPAY ==
--- NOTE | 2024-06-22 08:20 | PCPTNOTE ---
pt did not show for today's PT eval appt.
--- NOTE | 2024-07-06 10:03 | OPREHPOC ---
Outpatient Therapy Plan of Care This is a Multidisciplinary Plan of Care that may contain components documented by all disciplines (PT, OT, and ST.) PT Problem 1 PT Problem #1 Knowledge Deficit PT Goal 1 Goal / Goal Update *indep with HEP Target Visit 8 PT Problem 2 PT Problem #2 Pain PT Goal 1 Goal / Goal Update *pt report pain rating at the worst of 7/10, to increase activity level Target Visit 8 PT Problem 3 PT Problem #3 Impaired Strength PT Goal 1 Goal / Goal Update *increase strength of trunk/abdominals, R LE and L LE to 4/5 to improve stability to spine and hips: single leg standing on R and L x 20 seconds with good stability Target Visit 8 PT Goal 2 Goal / Goal Update * pt stand without R forward rotation of shoulder, trunk and hip Target Visit 8 PT Problem 4 PT Problem #4 Impaired Functional Mobility PT Goal 1 Goal / Goal Update * 2 minute walking test distance of 375'- to improve community ambulation Target Visit 8
--- NOTE | 2024-07-06 10:03 | PTOPEVAL1 ---
Assessment and note entered by Amy Flores, PT Evaluation Information Assessment Status Evaluation ICD-10 Condition Codes (PT) Pain in low back M54.50,Pain in right hip M25.551 Other ICD-10 Condition Codes ( M48.062 lumbar spinal stenosis PT) Onset March 2024 Subjective Information chronic issues with low back pain; received injection in March and April, did not help pain in back and now have pain in R hip; previous injections helped her back pain for one year having more pain issues with neck and back pain due to cold weather CT scan:reports severe canal stenosis L 4-5 and neural narrowing L 4-5-S1 to have another back injection next week; previous PT- myofascial helped; aquatic exercises for arms; have seen neuro dr and does not want back surgery; Activity: live alone, able to do all home tasks, with more pain; R arm weakness due to previous cervical surgery; do some stretches for back--stand with back to wall, cat/camel stretch, child pose stretch try to walk outside for fitness 45 minutes to hour Reported Pain Level Pain Score Self Report Additional Pain Score Comments pain in low back, radicular into R leg to mid calf and L anterior mid thigh decreased sensation of R medial- upper thigh due to blood clot, IVC filter pain range in the past week 5-10/10; decrease pain: elevate R leg, stretch out R leg in sitting; pain patch increase pain: sit for 15 minutes with sleeping reported 2-3 hours at time Assessment PT Clinical Summary Varsha has the diagnosis of back pain and hip pain radicular pain into R LE to mid calf and L to mid-anterior thigh. Her history includes chronic neck and back pain, s/p cervical fusion with residual R UE weakness, R LE PE with IVC filter. She is under the care of pain management and the recent injections did not give her pain relief. She does NOT want back surgery. Self assessment with Oswestry rating of 38% limitation in activity level. With the evaluation: decreased strength of abdominals, R and L LE; 2 minute walking test distance of 310'; pain is increased with standing trunk flexion, supine L hip IR & SLR and R hip flexion motions; tightness over anterior hip R with prone knee flexion. in standing- has R shoulder, trunk and hip forward rotation. Skilled PT services are indicated for aquatic exercises for the buoyancy effects of the water, modalities for pain control, therapeutic exercises on land and education for HEP,posture and pain management. Plan of Care Interventions Aquatic Therapy,Electrical Stimulation,Hot Pack/ Cold Pack,Manual Therapy,Mechanical Traction,Neuro Re-education,Patient/Caregiver Education, Therapeutic Activities,Therapeutic Exercise, Ultrasound,Other Other Interventions taping PT Services Indicated Yes Treatment Frequency and 2x/wk for 8 visits Duration These treatments will address the objective and functional deficits as defined above. The patient will be advanced safely and appropriately in order for the patient to progress towards his/her prior level of function. Additional exercises will be introduced and as well as a comprehensive home exercise program upon discharge, if needed, ?to ensure carryover of functional gains achieved in the clinic. This treatment plan has been reviewed and agreement upon by the patient.
--- NOTE | 2024-07-29 08:57 | PCPTNOTE ---
Pt canceled due to pain today.
--- NOTE | 2024-08-10 08:51 | PTOPDC ---
Assessment and note entered by Amy Flores, PT Assessment Status Discharge ICD-10 Condition Codes (PT) Pain in low back M54.50,Pain in right hip M25.551 Other ICD-10 Condition Codes ( M48.062 lumbar spinal stenosis PT) Onset March 2024 Subjective Information last injection in Jun did not help; do not have another dr appt--do not want another spinal injection; therapy has helped a little; sitting, driving is irritating to back; recently went to ER due to allergic reaction and more pain -- got steroid and back pain was little less; also fell outside when walking in park, stepping over a downed tree limb, was using walking sticks and fell forward, landing on knees; want to stop therapy--doing OK, have the exercises and know what to do for my self. Reported Pain Level Pain Score Self Report Additional Pain Score Comments pain range in the past week 1-8/10; lumbar, constant into R LE to ankle/ intermittent L to lateral hip increase pain: sit too long, over 30 minutes, stairs decrease pain: change positions, muscle cream, pain patch problems with sleeping, getting in a comfortable position to sleep, sleep about 2-3 hours at time Assessment PT Clinical Summary Varsha has received 6 PT sessions. She called and canceled 2 appointments. Compared to the initial evaluation: pain rating from 5-10/10 to 1-8/10; radicular pain in R LE increased to ankle at worst and L LE decreased to lateral hip at worst; self assessment Oswestry rating from 38% to 54% limitation in activity level;2 minute walking test distance 310' to 450'; increase flexibility of anterior hip-quad bilateral; increase trunk strength with single leg standing bilateral 20-30 seconds with good stability; education for HEP and posture/body mechanics. The goals were partially achieved. Discharge PT. She is to continue with her HEP and monitor her activity level/rest balance, due to pain. Plan of Care PT Services Indicated No
== END 2024-08-10 09:22 | disposition home or self-care (01) ==
LOC: ANHPT 08:00
PROVIDERS: PCP Nurse Practitioner Adult Health; Visit Provider Nurse Practitioner Adult Health
DX: M48.062 Spinal stenosis, lumbar region with neurogenic claudication (principal)
CPT/HCPCS: 97110; 97113; 97140; 97161; 97530

== ENCOUNTER 2024-11-20 12:18 | Emergency (ER) | payer OTHER, SELFPAY ==
[2024-11-20 12:27] VITALS: BP 133/75; PULSE 74; RESP 16; TEMP 37.2; O2SAT 100
--- NOTE | 2024-11-20 12:33 | ED.FEMALEGU ---
HPI - Female Genitourinary General Chief complaint: Vaginal Bleeding Stated complaint: clots of blood coming out of vagina Time Seen by Provider: 11/20/24 12:33 Source: patient Mode of arrival: ambulatory Limitations: no limitations History of Present Illness HPI Narrative: 49 yo F presents with c/o heavy vaginal bleeding, passing clots for 1 wk. Took a morning after pill 11/08. Period started 11/13. Normally lasts about a week but pt states today still heavy flow. Passed clots for approx. 5 days, yesterday passed very large clots. Pt states bleeding similar to when she had a miscarriage but does not think she is . hx of PE, has had IVC filter for approx. 20 years. Takes 8.5mg warfarin daily. Last INR 2.4 one month ago. Gets level checked monthly with [employer]. pt c/o fatigue. Came to today to get labs checked. All systems reviewed and negative except as noted above. Related Data Home Medications ?Medication ?Instructions ?Recorded ?Confirmed ?Last Taken ?Type cholecalciferol (vitamin D3) 50 50 mcg PO DAILY 02/10/22 05/24/24 06/26/23 09:00 History mcg (2,000 unit) capsule (Vitamin D3) warfarin 3 mg tablet 8 mg PO DAILY 02/10/22 05/24/24 06/27/23 20:00 History tizanidine 4 mg tablet 4 mg PO Q8H PRN Muscle Spasm 06/28/23 05/24/24 06/25/23 20:00 History lidocaine 5 % topical patch 1 patch topical Q24H 05/24/24 05/24/24 Unknown History Allergies Allergy/AdvReac Type Severity Reaction Status Date / Time bee venom protein (honey Allergy Severe Itching Verified 11/20/24 12:23 bee) (bees) amoxicillin Allergy Intermediate Rash Verified 11/20/24 12:23 azithromycin (From Zithromax) Allergy Intermediate Rash Verified 11/20/24 12:23 Bleach (Sodium Hypochlorite) Allergy Intermediate Rash Verified 11/20/24 12:23 adhesive tape Allergy Rash Verified 11/20/24 12:23 morphine Allergy Itching Verified 11/20/24 12:23 oxycodone (From Percocet) Allergy Itching Verified 11/20/24 12:23 Review of Systems Review of Systems: CONSTITUTIONAL: Denies fever, chills, or sweats. Reports fatigue. EYES: Denies visual changes, redness, or discharge. ENT: Denies rhinorrhea, congestion, sore throat, or otalgia. CARDIOVASCULAR: Denies chest pain, palpitations, or edema. RESPIRATORY: Denies cough or dyspnea. GASTROINTESTINAL: Denies abdominal pain, nausea, vomiting, or diarrhea. GENITOURINARY: Denies dysuria or hematuria. Reports vaginal bleeding. SKIN: Denies rash or itching. MUSCULOSKELETAL: Denies back pain, joint pain, or myalgia. NEUROLOGIC: Denies headache, numbness, or weakness. PSYCHIATRIC: Denies anxiety or depression. All other systems reviewed are negative, except as documented in HPI. 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 Family History Family History Father Hypertension Mother Hypertension Diabetes mellitus Social History Social History Smoking packs per day: 0.5 Smoking cigarettes per day: 10.0 Years smoked: 25 Smoking pack-years: 12.50 Smoking status: Current every day smoker Tobacco type: cigarettes Second hand tobacco smoke exposure: No Alcohol intake: current Drinks per week: 1 Substance use: current Substance use type: marijuana Other substance usage details: medical marijuana Last use: 06/27/23 Do You Feel Safe in your Home?: Yes Lack of Transportation: No Lack of Food: Never True Current Housing: I Have Housing Concerned About Future Housing: No Difficulty Paying Gas/Electric Bills: No Difficulty Paying for Meds: No Currently Unemployed: YES Education: Bachelor's Degree Difficulty w/ Childcare or Family Care: No Living arrangements: with family Occupation/Education: unemployed Gender identity (if verbalized by the patient): Female Spiritual care concerns: No Comments At time of signature, agree with nursing past medical, surgical, social and family history. There is no relevant family history pertinent to the presenting complaint. Exam Narrative: GENERAL: This is a well-nourished, well-developed patient, in no apparent distress. HEAD: normocephalic, atraumatic. EYES: PERRL. Sclera clear/white. Vision is grossly intact. EARS: External ears normal NOSE: External nose normal NECK: Neck supple, non-tender without lymphadenopathy, masses or thyromegaly. CARDIOVASCULAR: Regular rate and rhythm without murmurs, gallops, or rubs. RESPIRATORY: Clear to auscultation. Breath sounds equal bilaterally. No wheezes, rales, or rhonchi. SKIN: warm, Dry, intact with no suspicious lesions or rash, good texture and turgor. NEURO: awake, alert, and oriented to person, place and time. There were no obvious focal neurologic abnormalities. EXTREMITIES: No joint tenderness, effusion, or edema noted. Course Course Level of Care: Express Care Visit Vital Signs Vital signs: Vital Signs Temperature 37.2 C 11/20/24 12:27 Pulse Rate 74 11/20/24 12:27 Respiratory Rate 16 11/20/24 12:27 Blood Pressure 133/75 11/20/24 12:27 Pulse Oximetry 100 11/20/24 12:27 Oxygen Delivery Room Air 11/20/24 12:27 Temperature 37.2 C 11/20/24 12:27 Pulse Rate 74 11/20/24 12:27 Respiratory Rate 16 11/20/24 12:27 Blood Pressure 133/75 11/20/24 12:27 Pulse Oximetry 100 11/20/24 12:27 Oxygen Delivery Room Air 11/20/24 12:27 Reviewed Transfer Transfered to: [place] Transportation: Other ( private vehicle) Transfer rationale: transferring patient to ER to further evaluate heavy vaginal bleeding. Patient takes warfarin daily. needs INR, H and H checked. Accepting physician: Dr. Li MDM - Female Genitourinary MDM Narrative Medical decision making narrative: Patient to ER to further evaluate abnormal vaginal bleeding. Needs INR checked. Patient agrees to plan of care. She is stable at [facility]. Lab Data Labs: Lab Results 07/06/25 Range/Units 12:38 POC Urine HCG, Qual Negative (Negative) Discharge Plan Discharge Clinical Impression: Abnormal vaginal bleeding Patient Disposition: Acute Care Hospital Condition: Stable Patient Language: Syriac Prescriptions: No Action warfarin 3 mg tablet 8 mg PO DAILY cholecalciferol (vitamin D3) [Vitamin D3] 50 mcg (2,000 unit) capsule 50 mcg PO DAILY lidocaine 5 % adhesive patch,medicated 1 patch topical Q24H prednisone 50 mg tablet 50 mg PO DAILY Qty: 5 0RF prednisone 20 mg tablet See Rx Instructions .ROUTE .COMPLEX Qty: 12 0RF Rx Instructions: Take 3 tablets today, then 2 tablets daily for 3 days then 1 tablet daily for 3 days. tizanidine 4 mg Tablet 4 mg PO Q8H PRN (Reason: Muscle Spasm) cyclobenzaprine 5 mg tablet 5 mg PO TID PRN (Reason: muscle spasm) Qty: 20 0RF Follow-up/Referrals: Kimberly,LINDA Whitehead [Primary Care Provider] - Time of Disposition: 12:51
[2024-11-20 12:44] LABS: BEDSIDEPREGUCG Negative (Negative)
== END 2024-11-20 13:00 | disposition short-term general hospital (02) ==
PROVIDERS: Emergency Provider Nurse Practitioner Family; PCP Physician Assistant
DX: N93.9 Abnormal uterine and vaginal bleeding, unspecified (principal); F17.210 Nicotine dependence, cigarettes, uncomplicated; I10 Essential (primary) hypertension; E11.9 Type 2 diabetes mellitus without complications; Z86.2 Personal history of diseases of the blood and blood-forming organs and certain disorders involving the immune mechanism; Z86.711 Personal history of pulmonary embolism; Z79.01 Long term (current) use of anticoagulants
CPT/HCPCS: 81025; 99212; G0463

== ENCOUNTER 2024-11-20 13:09 | Emergency (ER) | payer OTHER, SELFPAY ==
--- OUTSIDE RECORDS SUMMARY | 2024-11-20 13:12 | XMS_ITS | Encounter Summary ---
Author Organization [facility] Address [facility] [place] [address] Care Team Providers Care Kaiawhina Name Role Phone Yahaira Larios MD Primary Care Provider [phone] Encounter Details Date Type Department Care Team (Late st Contact Info) Description 04/28/2018 Discharge [facility] [place]patient [place] [address] Ghazala Miranda, [place] [address] Social History Tobacco Use Types Packs/Day Years Used Date Smoking Tobacco: Former Cigarettes Q uit: 09/15/2017 Smokeless Tobacco: Former Alcohol Use Standard Drinks/Week Comments No 0 (1 standard drink = 0.6 oz pur e alcohol) Comments No Sex and Gender Information Value Date Recorded Sex Assigned at Not on file Legal Sex Female 8:36 AM CDT Gender Identity Not on file Sexual Orientation Not on file Occupation Industry Job Start Date Job End Date Not on file Not on file Not on file Not on file documented as of this encounter Plan of Treatment Not on file documented as of this encounter Visit Diagnoses Not on filedocumented in this encounter Care Teams Kaiawhina Relationship Specialty Start Date End Date Yahaira Larios MD [address] [place] [address] PCP - General INTERNAL MEDICINE 02/02/18 documented as of this encounter
--- OUTSIDE RECORDS SUMMARY | 2024-11-20 13:12 | XMS_ITS | Clinical Summary ---
Author Organization [facility] Address [address] [place] [address] Care Team Providers Care Sanitary Plumber Name Role Phone Unavailable Primary Care Provider Unavailabl e Allergies Active Allergy Reactions Criticality Noted Date Comments Adhesive Medium 08/20/2017 Other reaction(s): Urticaria Amoxicillin Rash Medium 09/15/2016 Azithromycin 12/28/2008 FACE SWELLING Morphine Itching,Rash Low 06/06/2009 Oxycodone-Acetaminophen 06/06/2009 Other reaction(s): Nausea Medications albuterol (PROVENTIL HFA;VENTOLIN HFA) 108 (90 Base) MCG/ACT inhaler Inhale 2 puffs Every 4 hours as needed. for wheezing or shortness of breath. 3.7 g 8 Active gabapentin (NEURONTIN) 300 MG capsule Take 1 capsule (300 mg total) by mouth 2 (two) times a day. 30 capsule 8 Active lidocaine (LIDOCARE) 4 % patch patch Place 2 patches on the skin once a day. 0 8 Active cyclobenzaprine (FLEXERIL) 5 MG tablet Take 1 tablet (5 mg total) by mouth 2 (two) times a day. 15 tablet 8 Active sodium chloride (OCEAN) 0.65 % nasal spray Administer 2 sprays into each nostril as needed (epistaxis,). 15 mL 8 Active ergocalciferol (VITAMIN D2) 35317 units capsule Take 1 capsule (50,000 Units total) by mouth every 7 days. 4 capsule 8 Active warfarin (COUMADIN) 3 MG tablet Take 2 tablets (6 mg total) by mouth daily. Take as directed per After Visit Summary. Need to follow INR for daily dosing 60 tablet 8 Active Active Problems Problem Noted Date Diagnosed Date Tetraplegia 10/15/2017 Overview (10/15/2017): Following decompression of cervical spine with right arm right leg and left arm and leg weakness and numbness Cervical myelopathy 09/24/2017 Overview (09/24/2017): [employer] with stenosis at C4/C5, cord compression C2----C6 Altered sensation of skin 09/24/2017 Overview (09/25/2017): Right arm and hand dysesthesia with tactile allodynia Right lower extremity sensory changes with decreased sensation. Left arm sensory dysfunction Weakness of hand 09/24/2017 Overview (09/24/2017): Left hand weakness Personal history of pulmonary embolism 8 H/O: Deep vein thrombosis 09/24/2017 Depressive disorder 09/24/2017 Anxiety 09/24/2017 Neck pain 09/15/2017 Tobacco user 02/22/2009 Dyslipidemia 01/18/2009 Overview (09/24/2017): Overview: Low HDL TSH 01/24 Deep venous thrombosis 12/28/2008 Overview (09/24/2017): Overview: With PE Lifelong anticoagulation due to IVC filter. Morbid obesity 12/28/2008 Overview (09/24/2017): Overview: Cortisol 01/24 Negative sleep study 01/24 Noncompliance with treatment 12/28/2008 Overview (09/24/2017): Overview: With visits and INR monitoring. Polycystic ovary 12/28/2008 Overview (09/24/2017): Overview: Amenorrhea since [address] Crawley Sciatica 12/28/2008 Overview (09/24/2017): Overview: HNP L L4-L5 HNP L L5-S1 Dr. Morales Resolved Problems Problem Noted Date Diagnosed Date Resolved Date Herniated lumbar nucleus pulposus 09/25/2017 10/15/2017 Overview (09/25/2017): [id number]-[id number] treated Weakness of left lower limb 09/24/2017 10/15/2017 Overview (08/21/2023): August SNOMED Diagnostic import Essential hypertension 09/24/201710/15 Osseous stenosis of neural c anal of cervical region 09/24/2017 10/15/2017 Family History Medical History Relation Name Comments Diabetes type II Maternal Grandmother Hypertension Maternal Grandmother Diabetes type II Mother Diabetes type II Paternal Grandmother Relation Name Status Comments Maternal Grandmother Mother Paternal Grandmother Social History Tobacco Use Types Packs/Day Years Used Date Smoking Tobacco: Former Cigarettes 1 17 0 09/15/2000 - 09/15/2017 Smokeless Tobacco: Former Quit: 09/15/2017 Comments Unknown Sex and Gender Information Value Date Recorded Sex Assigned at Not on file Legal Sex Female 4:10 PM EDT Gender Identity Not on file Sexual Orientation Not on file Last Filed Vital Signs Vital Sign Reading Time Taken Comments Blood Pressure 110/66 10/14/2017 9:20 PM CDT Pulse 88 10/14/2017 9:20 PM CDT Temperature 36.2 C (97.1 F) 10/14/2017 9:20 PM CDT Respiratory Rate 18 10/14/2017 9:20 PM CDT Oxygen Saturation 96% 10/14/2017 9:20 PM CDT Inhaled Oxygen Concentration - - Weight 106.8 kg (235 lb 6 oz) 10/15/2017 5:29 AM CDT Height 167.6 cm (5' 6) 10/08/2017 5:36 AM CDT Body Mass Index 37.99 10/08/2017 5:36 AM CDT Plan of Treatment Not on file Advance Directives * Full Resuscitation (Latest Code Status on File) Date Activated Date Inactivated Comments 09/24/2017 10:26 PM 10/15/2017 7:03 PM
--- OUTSIDE RECORDS SUMMARY | 2024-11-20 13:12 | XMS_ITS | Clinical Summary ---
Author Organization [facility] Address [facility] [place] [address] Care Team Providers Care After School Teacher Name Role Phone Yahaira Larios MD Primary Care Provider [phone] Allergies Active Allergy Reactions Criticality Noted Date Comments Pregabalin Rash Medium 02/02/2018 Morphine Unknown 11/30/2017 Oxycodone-Acetaminophen Itching Low 11/30/2017 Tape Rash High Reaction: Excoriation, Skin Sloughing, Azithromycin Hives,Swelling High 11/30/2017 Medications albuterol sulfate HFA 108 (90 Base) MCG/ACT inhaler Inhale into the lungs every 4 (four) hours. 8 Active cyclobenzaprine 10 MG tablet 8 Active EPINEPHrine 0.3 MG/0.3ML injection 8 Active vitamin D2, ergocalciferol, 44737 UNITS capsule 8 Active warfarin 5 MG tablet Take 5 mg by mouth daily. Active warfarin 3 MG tablet Take 3 mg by mouth daily. Active lidocaine 4 % cream 8 Active fluticasone propionate 50 MCG/ACT nasal spray 8 Active montelukast 10 MG tablet Take 10 mg by mouth nightly at bedtime. Active cefUROXime 250 MG tablet Take 250 mg by mouth 2 (two) times daily. Active MARIJUANA TINCTURE Medicinal marijuana prn Active Active Problems Problem Noted Date Diagnosed Date Lumbar radiculopathy 11/30/2017 Family History Medical History Relation Comments Diabetes Father Diabetes Mother Hypertension Mother Relation Status Comments Father Mother Social History Tobacco Use Types Packs/Day Years Used Date Smoking Tobacco: Every Day Cigarettes Last attempted to quit: 09/15/2017 Smokeless Tobacco: Former Alcohol Use Standard [...] file Not on file Not on file Last Filed Vital Signs Vital Sign Reading Time Taken Comments Blood Pressure 139/92 09/06/2018 9:49 AM CDT Pulse 77 09/06/2018 9:49 AM CDT Temperature 36.9 C (98.5 F) 09/06/2018 9:49 AM CDT Respiratory Rate 16 09/06/2018 9:49 AM CDT Oxygen Saturation 100% 09/06/2018 9:49 AM CDT Inhaled Oxygen Concentration - - Weight 104.3 kg (230 lb) 09/06/2018 9:49 AM CDT Height 172.7 cm (5' 8) 09/06/2018 9:49 AM CDT Body Mass Index 34.97 09/06/2018 9:49 AM CDT Plan of Treatment Health Maintenance Due Date Last Done Comments Cervical Cancer Screening Pa p Smear (Age 30 to 64) Every 3 Years 1975 Colorectal Cancer Screening Colonoscopy (10 Years) 1975 Annual Physical 1978 Hepatitis C 1993 Hepatitis B Vaccines (1 of 3 - 19+ 3-dose series) 1994 Pneumococcal Vaccine: Pediat rics (0 to 5 Years) and At-Risk Patients (6 to 49 Years) (1 of 2 - PCV) 1994 Cervical Cancer Screening Pa p with HPV Testing (Age 30 to 64) Every 5 Years 2005 Cervical Cancer Screening with HPV 2005 Mammogram Screening 2015 DTaP, Tdap and Td Vaccines ( 2 - Td or Tdap) 05/28/2019 05/28/2009 COVID-19 Vaccine (2023-2 5 season) 2024 Meningococcal B Vaccine Aged Out No l onger eligible based on patient's age to complete this topic Meningococcal Vaccine Aged Out No rebeca jefry eligible based on patient's age to complete this topic RSV Immunizations Under 20 Months Aged Out No longer eligible based on patient's age to complete this topic Insurance [employer] Advance Directives Documents on File Type Date Recorded 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 FOR HB BILLS FOR [facility] FOR [facility] LAW Care Teams After School Teacher Relationship Specialty Start Date End Date Yahaira Larios MD [address] [place] [address] PCP - General INTERNAL MEDICINE 02/02/18
--- OUTSIDE RECORDS SUMMARY | 2024-11-20 13:12 | XMS_ITS | Clinical Summary ---
Author Organization [facility] Address [address] [place] [address] Care Team Providers Care Oracle Programmer Analyst Name Role Phone Yahaira Larios MD Primary Care Provider [phone] Source Comments [facility],non-owned Affiliates and Associated Physician Practices is amultiple site organization consisting of ambulatory clinics and hospital sitesin [place], [place], [place] and [place]. This disclosure is being madepursuant to the Care Everywhere program and may not contain all information available regarding this patient. Last updated 18.[facility] Allergies Active Allergy Reactions Criticality Noted Date Comments Adhesive Sensitivity Urticaria Medium 08/20/2017 Other reaction(s): Urticaria Amoxicillin Rash Medium 09/15/2016 Azithromycin Other 12/28/2008 FACE SWELLING Morphine Rash,Itching 06/06/2009 Oxycodone-Acetaminophen Nausea 06/06/2009 Azithromycin Dihydrate 12/28/2008 FACE SWELLING Medications * Be aware that medications may not be up to date on this document. Alwaysverify current medications with the patient. albuterol HFA (PROVENTIL;VENT ANNE MARIE;PROAIR) 108 (90 BASE) MCG/ACT inhaler Inhale 2 puffs by mouth As needed Active EPINEPHrine (EPIPEN) 0.3 MG/0.3ML auto-injector pen Inject 0.3 mg into muscle Active cyclobenzaprine (FLEXERIL) 10 MG tablet 08/10/2017 Active vitamin D, ergocalciferol, (DRISDOL) 06334 UNITS capsule 07/30/2017 Activ e fluticasone propionate (FLONASE) 50 MCG/ACT nasal spray 08/10/2017 Active loratadine (CLARITIN) 10 MG tablet Take 10 mg by mouth once daily 08/10/2017 Active Dronabinol (MEDICAL MARIJUANA) Active baclofen (LIORESAL) 20 MG tablet Take 0.5 tablets by mouth 2 times daily as needed for Muscle Spasms May cause drowsiness. 60 tablet 3 10/22/2017 Active warfarin (COUMADIN) 3 MG tablet 03/03/2018 Active warfarin (COUMADIN) 5 MG tablet 03/03/2018 Active warfarin (COUMADIN) 1 MG tablet 02/03/2018 Active Misc. Devices (WRIST BRACE) MISC Use 1 device once daily 1 Each 03/31/2018 Active Active Problems Problem Noted Date Diagnosed Date Neck pain 09/15/2017 Depression 04/09/2010 Tobacco use disorder 02/22/2009 Dyslipidemia 01/18/2009 Overview (01/18/2009): Low HDL TSH 01/24 DVT (deep venous thrombosis) 12/28/2008 Overview (12/28/2008): With PE Lifelong anticoagulation due to IVC filter. Morbid obesity 12/28/2008 Overview (01/24/2009): Cortisol 01/24 Negative sleep study 01/24 Sciatica 12/28/2008 Overview (12/06/2009): HNP L L4-L5 HNP L L5-S1 Dr. Morales Noncompliance 12/28/2008 Overview (02/26/2011): With visits and INR monitoring. PCO (polycystic ovaries) 12/28/2008 Overview (12/06/2009): Amenorrhea since [address] Crawley Vitamin B6 deficiency Immunizations Immunization Administration Dates Next Due HEP A VACCINE, ADULT 12/16/2009,07/16/2009,05/28 HEP B VACCINE ADOL/ADULT 2 DOSE 12/16/2009,07/16,05/28/2009 INFLUENZA A [id number] VACCINE 04/17/2009 INFLUENZA VACCINE 01/16/2010,04/17/2009 TDAP (7yrs+) 05/28/2009 Family History Medical History Relation Name Comments Diabetes Maternal Grandmother Hypertension Maternal Grandmother Diabetes Mother Diabetes Paternal Grandmother Relation Name Status Comments Maternal Grandmother Mother Paternal Grandmother Social History Tobacco Use Types Packs/Day Years Used Date Smoking Tobacco: Former Cigarettes 1 13 0 09/15/2004 - 09/15/2017 Smokeless Tobacco: Never Tobacco Cessation:Counseling Given: No Comments:pt statred back recently 10/2018 Alcohol Use Standard Drinks/Week Comments No 0 (1 standard drink = 0.6 oz pur e alcohol) Comments Unknown Sex and Gender Information Value Date Recorded Sex Assigned at Not on file Legal Sex Female 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 Gender Identity Not on file Sexual Orientation Not on file Last Filed Vital Signs Vital Sign Reading Time Taken Comments Blood Pressure 144/90 12/22/2018 9:41 AM CDT Pulse 64 12/22/2018 9:41 AM CDT Temperature 36.4 C (97.6 F) 09/24/2017 4:00 PM CDT Respiratory Rate 18 09/24/2017 4:00 PM CDT Oxygen Saturation 100% 09/24/2017 4:00 PM CDT Inhaled Oxygen Concentration - - Weight 103 kg (227 lb) 12/22/2018 9:41 AM CDT Height 172.7 cm (5' 8) 12/22/2018 9:41 AM CDT Body Mass Index 34.52 12/22/2018 9:41 AM CDT Plan of Treatment Health Maintenance Due Date Last Done Comments COLOGUARD (AGES 45-75) - COLON CA SCREENING 1975 COLON MONITORING 1975 COLONOSCOPY - COLON CA SCREENING 1975 CT COLONOGRAPHY - COLON CA SCREENING 1975 Colorectal Cancer Screening 1975 FIT - COLON CA SCREENING 1975 FLEX SIG - COLON CA SCREENING 1975 MAMMOGRAM 1975 Opioid Medication Agreement - Annual 1975 HIV SCREENING 1990 HEPATITIS C SCREENING 06/15/1993 DTAP/TDAP/TD VACCINES (2 - Td or Tdap) 05/28/2019 05/28/2009 SCREENING FOR DIABETES 10/15/2020 8, 10/15/2017, 10/15/2017, Additional history exists COVID-19 VACCINE ( season) 2024 DEPRESSION SCREENING 05/18/2024 INFLUENZA VACCINE (Season Ended) 2025 01/16/2010, 04/17/2009, 04/17/2009 ZOSTER VACCINE (1 of 2) 2025 HEPATITIS B VACCINE Completed 12/16/2009, 07/16/2009, 05/28/2009 HIB VACCINE Aged Out No longer eligi ble based on patient's age to complete this topic HPV VACCINE Aged Out No longer eligi ble based on patient's age to complete this topic MENINGOCOCCAL (Group B) VACCINE SHARED DECISION-MAKING Aged Out No longer eligible based on patient's age to complete this topic MENINGOCOCCAL GROUPS A/C/Y/W VACCINE Aged Out No longer eligible based on patient's age to complete this topic Medical Devices Implanted Type Area Digital Marketing Associate Device Identifier Shelf Expiration Date Model / Serial / Lot Screw Set Ti M6 Btrs Thrd Spne Post Vrtx Implanted:Qty: 8 on 09/16/2017 by Sherrie Elias MD at [facility] N/A: Spine Cervical Medtronic Sofamor [employer] [id number] / / Screw 3.5mm 12mm Spne Thor Ma Vrtx Mx Ti Implanted:Qty: 1 on 09/16/2017 by Sherrie Elias MD at [facility] N/A: Spine Cervical Medtronic Sofamor [employer] [id number] / / Screw 3.5mm 14mm Spne Thor Ma Vrtx Mx Ti Implanted:Qty: 7 on 09/16/2017 by Sherrie Elias MD at [facility] N/A: Spine Cervical Medtronic Sofamor [employer] [id number] / / 3.5x55mm Pre Bent Aron Implanted:Qty: 2 on 09/16/2017 by Sherrie Elias MD at [facility] N/A: Spine Cervical [id number] / / Graft Bone Magnifuse Dbm 5x1cm Spne Crv - [id number] Implanted:Qty: 1 on 09/16/2017 by Sherrie Elias MD at [facility] N/A: Spine Cervical [employer] 04/16/2019 [id number] / [id number] / Procedures Procedure Name Priority Date/Time Associated Diagnosis Comments COMPREHENSIVE METABOLIC PANEL Routine 10/15/2017 5:54 AM CDT from Last 3 Months or Most Recently Relevant to Health Maintenance Results * (ABNORMAL) COMPREHENSIVE METABOLIC PANEL (10/15/2017 5:54 AM CDT) Glucose 96 74 - 106 mg/dL 10/15/2017 6:39 AM CDT [facility] Sodium 138 136 - 145 mmol/L 10/15/2017 6:39 AM CDT [facility] Potassium 4.1 3.5 - 5.1 mmol/L 10/15/2017 6:39 AM CDT [facility] Chloride 105 98 - 107 mmol/L 10/15/2017 6:39 AM CDT [facility] CO2 24 22 - 31 mmol/L 10/15/2017 6:39 AM CDT [facility] Calcium 9.0 8.5 - 10.1 mg/dL 10/15/2017 6:39 AM CDT [facility] Anion Gap 9 8 - 16 mmol/L 10/15/2017 6:39 AM CDT [facility] BUN 14 7 - 21 mg/dL 10/15/2017 6:39 AM CDT [facility] Creatinine 0.83 0.50 - 1.30 mg/dL 10/15/2017 6:39 AM CDT [facility] Alkaline Phosphatase 105 38 - 126 U/L 10/15/2017 6:39 AM CDT [facility] ALT 121(H) 13 - 61 U/L 10/15/2017 6:39 AM CDT [facility] AST 35 5 - 40 U/L 10/15/2017 6:39 AM CDT [facility] Protein Total 6.9 6.4 - 8.2 gm/dL 10/15/2017 6:39 AM CDT [facility] Albumin 2.9(L) 3.4 - 5.0 gm/dL 10/15/2017 6:39 AM CDT [facility] Bilirubin Total 0.3 0.2 - 1.0 mg/dL 10/15/2017 6:39 AM CDT [facility] eGFR by MDRD >60 >60 mL/min/1.7 3m2 10/15/2017 6:[address] [facility] eGFR by MDRD >60 >60 mL/min/1.7 3m2 10/15/2017 6:[address] [facility] Blood BLOOD SPECIMEN / Unknown Lab Venipuncture / Unknown 10/15/2017 5:54 AM CDT 10/15/2017 6:05 AM CDT Suzanna Bhakta MD LAB - CHEMISTRY ORDERABLES nal Result [facility] [address] [place] [address] from Last 3 Months or Most Recently Relevant to Health Maintenance Insurance [facility] [employer] [facility] Advance Directives * Full Code (Latest Code Status on File) Date Activated Date Inactivated Comments 09/24/2017 9:12 PM 10/15/2017 4:57 PM * Full Code Date Activated Date Inactivated Comments 09/15/2017 8:27 PM 09/24/2017 9:12 PM * Full Code Date Activated Date Inactivated Comments 07/10/2009 5:08 PM 09/15/2017 8:27 PM Unplug if hop eless. Mother, Angela Koch, is POA. * Full Code Date Activated Date Inactivated Comments 05/30/2009 6:23 PM 06/02/2009 1:14 AM Care Teams Oracle Programmer Analyst Relationship Specialty Start Date End Date Yahaira Larios MD [address] [place] [address] PCP - General 06/30/18
--- OUTSIDE RECORDS SUMMARY | 2024-11-20 13:12 | XMS_ITS | Referral Summary ---
Author Organization [facility] Address [address] [place] [address] Care Team Providers Care Supervisor Production Name Role Phone Lety Harris Primary Care Provider + Jean Carlos Herrera DO Unavailable [phone] Encounters Date Type Department Care Team Description 11/16/2024 Orders Only [facility] at the [facility] Advanced Medicine [facility] [address] [address] Lety Harris PA Cervical radiculopathy (Primary Dx) 10/28/2024 Anticoagulation Telephone Call [facility] [address] [place] [address] [place] [phone] Robina Brock RN 10/28/2024 Telephone [facility] [address] [place] [address] [address] [place] [address] Robina Brock, KATLYN 09/28/2024 9:45 AM CDT Lab [facility] at [address] [id number] Thrombophlebitis of deep veins of lower extremity, unspecified laterality (HCC) 09/28/2024 10:15 AM CDT Office Visit [facility] [address] [place] [address] [place] [phone] Jean Carlos Herrera DO Thrombophlebitis of deep veins of lower extremity, unspecified laterality (HCC) (Primary Dx); Encounter for monitoring warfarin therapy 09/27/2024 Telephone [facility] [address] [place] [address] [address] [place] [address] Robina Brock RN 09/26/2024 Orders Only [facility] [address] [place] [address] [address] [place] [address] Robina Brock RN Thrombophlebitis of deep veins of lower extremity, unspecified laterality (HCC) (Primary Dx) 09/23/2024 Telephone [facility] [address] [place] [address] [address] [place] [address] Robina Brock RN from Last 3 Months Allergies Active Allergy Reactions Criticality Noted Date Comments Adhesive Rash High 08/20/2017 Reaction: Excoriation, Skin Sloughing, Other reaction(s): Urticaria Adhesive Tape-Silicones Other (See comments) High Reaction: Excoriation, Skin Sloughing, Amoxicillin Hives,Rash Medium 09/15/2016 Swelling Azithromycin Swelling,Rash Reaction: Swelling, Rash, Morphine Itching,Rash,Stomach upset,Swelling High 06/06/2009 Stomach/GI Upset Other reaction(s): Unknown Oxycodone-Acetaminophen Itching,Nausea only,Swelling High 06/06/2009 Other reaction(s): Nausea Pregabalin Rash Medium 02/02/2018 Venom-Honey Bee Anaphylaxis,Itching, Swelling High 03/28/2019 Medications cetirizine (ZyrTEC) 10 mg tablet Take 1 tablet (10 mg total) by mouth daily 11/13/19 20 Active tretinoin (RETIN-A) 0.025 % cream 04/17/20 23 Active TiZANidine (ZANAFLEX) 4 mg capsule Take 1 capsule (4 mg total) by mouth 3 (three) times a day Active warfarin (COUMADIN) 5 mg tabletIndicatio ns:Thrombophleb itis of deep veins of lower extremity, unspecified laterality (HCC),Encounter for monitoring warfarin therapy Take 1 tablet with a 3mg tablet and half of a 1mg tablet for a total of 8.5mg daily or as directed by provider. 30 tablet 2 09/29/19 25 Active warfarin (COUMADIN) 1 mg tabletIndicatio ns:Thrombophleb itis of deep veins of lower extremity, unspecified laterality (HCC),Encounter for monitoring warfarin therapy Please take coumadin as prescribed by provider. 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 Thrombophlebitis of deep veins of lower extremit y 07/01/2012 Lumbago 07/01/2012 Immunizations Immunization Administration Dates Next Due H1N1 All Forms 04/17/2009 Hep A, Adult 12/16/2009,07/16/2009,05/28/2009 Influenza, Quadrivalent, Spl it, Intramuscular 03/18/2018,06/23/2017,08/07/2016 Influenza, Quadrivalent, Spl it, Preservative Free, Intramuscular 03/20/2015 Influenza, Unspecified 01/16/2010 MMR 01/07/1991 Tdap 02/17/2019,08/07/2016,05/28/2009 Social History Tobacco Use Types Packs/Day Years Used Date Smoking Tobacco: Every Day Cigarettes Tobacco Cessation:Ready to Q uit: Not Asked; Counseling Given: Not Answered AUDIT-C Answer Date Recorded Q1: How often do you have a drink containing alc ohol? Monthly or less 07/24/2023 Q2: How many drinks containi ng alcohol do you have on a typical day when you are drinking? 1 or 2 07/24/2023 Q3: How often do you have si x or more drinks on one occasion? 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 on file Not on file Not on file Last Filed Vital Signs Vital Sign Reading Time Taken Comments Blood Pressure 130/80 09/28/2024 10:16 AM CDT Pulse 58 09/28/2024 10:16 AM CDT Temperature 37.1 C (98.8 F) 09/28/2024 10:16 AM CDT Respiratory Rate 16 09/28/2024 10:1 6 AM CDT Oxygen Saturation 98% 09/28/2024 10: 16 AM CDT Inhaled Oxygen Concentration - - Weight 98.2 kg (216 lb 9.6 oz) 09/28/2024 10:16 AM CDT Height 173 cm (5' 8.11) 09/28/2024 10: 16 AM CDT pt refused to remove shoes Body Mass Index 32.83 09/28/2024 10:16 AM CDT Plan of Treatment Not on file Procedures Procedure Name Priority Date/Time Associated Diagnosis Comments PROTIME-INR Routine 10/27/2024 11:47 AM CDT Thrombophlebitis of deep veins of lower extremity, unspecified laterality (HCC) PROTIME-INR Routine 09/28/2024 10:10 AM CDT Thrombophlebitis of deep veins of lower extremity, unspecified laterality (HCC) PROTIME-INR Routine 09/26/2024 10:45 AM CDT Thrombophlebitis of deep veins of lower extremity, unspecified laterality (HCC) from Last 3 Months Results * (ABNORMAL) Protime-INR (10/27/2024 11:47 AM CDT) INR 2.3(H) [facility]ighbor[facility]DLisette Parmar Comment: Reference Range 0.9-1.1 Moderate-intensity Warfarin Therapy 2.0-3.0 Higher-intensity Warfarin Therapy 3.0-4.0 PT 23.0(H) 9.0 - 11.5 sec [employer] DiagnosticsLisette Parmar Comment: For additional information, please refer to http://education.[employer]/faq/NAW897 (This link is being provided for informational/ educational purposes only.) Blood 10/27/2024 11:4 7 AM CDT 10/27/2024 11:47 AM CDT Mai Mancia PARADICHLOROBENZENE TENDER LAB BLOOD ORDERABLES Final Result Performing Organization Address City/[facility]/ZIP Co de Phone Number [facility] [address] [place] [address] * (ABNORMAL) Protime-INR (09/28/2024 10:10 AM CDT) PT 21.1(H) 12.0 - 14.6 sec Comment: Ref Range High Testing performed by: [facility], [address] [place] [address]., [id number] INR 1.9(H) 0.9 - 1.2 MONROE LARSON Comment: Ref Range High Interpretive data Oral anticoagulant therapeutic ranges: Venous thromboembolism prophylaxis or treatment: 2.0-3.0 CARDIOLOGY Standard range: 2.0-3.0 High-intensity range: 2.5-3.5 Refer to indication-specific guidelines for appropriate target ranges for prosthetic heart valve replacement. Current interpretive data was last revised on 2019. Testing performed by: [facility], [address] [place] [address]., [id number] Blood 09/28/2024 10:1 0 AM CDT 09/28/2024 11:39 AM CDT Jean Carlos Herrera DO LAB BLOOD ORDERABLES Final R esult Performing Organization Address City/[facility]/ZIP Co de Phone Number [facility] [address] [facility] Department of Laboratories [place], [place] [phone] * (ABNORMAL) Protime-INR (09/26/2024 10:45 AM CDT) INR 1.5(H) NeighborMDLisette Parmar Comment: Reference Range 0.9-1.1 Moderate-intensity Warfarin Therapy 2.0-3.0 Higher-intensity Warfarin Therapy 3.0-4.0 PT 16.1(H) 9.0 - 11.5 sec NeighborMDLisette Parmar Comment: For additional information, please refer to http://education.[employer]/faq/EOC698 (This link is being provided for informational/ educational purposes only.) Blood 09/26/2024 10:4 5 AM CDT 09/26/2024 10:45 AM CDT Jean Carlos Herrera DO LAB BLOOD ORDERABLES Final R esult [facility] [address] [place] [address] from Last 3 Months Insurance [facility] [address] [facility] [address] Care Teams Supervisor Production Relationship Specialty Start Date End Date Lety Harris PA PCP - General Physician Sail Cutter 01/30/22 Jean Carlos Herrera DO [address] [place] [address] MEDICAL ONCOLOGY, [address] [address] Medical Oncologist/Redrawer Hematology and Oncology 04/20/23
--- OUTSIDE RECORDS SUMMARY | 2024-11-20 13:12 | XMS_ITS | Clinical Summary ---
Author Organization [facility] Address [address] [place] [address] Care Team Providers Care Power Barker Name Role Phone Lety Harris Primary Care Provider + Jean Carlos Herrera DO Unavailable [phone] Allergies Active Allergy Reactions Criticality Noted Date [...] of lower extremit y 07/01/2012 Lumbago 07/01/2012 Encounters Date Type Department Care Team Description 11/16/2024 Orders Only [facility] [place] [facility] [address] [place] [address] Advanced Medicine [address] [place] [address] Lety Harris PA Cervical radiculopathy (Primary Dx) 10/28/2024 Anticoagulation Telephone Call [facility] Oncology [address] [place] [address] [place] [phone] Robina Brock RN 10/28/2024 Telephone [facility] Oncology [address] [place] [address] [place] [phone] Robina Brock RN 09/28/2024 10:15 AM CDT Office Visit [facility] Oncology [address] [place] [address] [place] [phone] Jean Carlos Herrera DO Thrombophlebitis of deep veins of lower extremity, unspecified laterality (HCC) (Primary Dx); Encounter for monitoring warfarin therapy 09/28/2024 9:45 AM CDT Lab [facility] at [address] [id number] Thrombophlebitis of deep veins of lower extremity, unspecified laterality (HCC) 09/27/2024 Telephone [facility] Oncology [address] [place] [address] [address] [place] [phone] Robina Brock, KATLYN 09/26/2024 Orders Only [facility] Oncology [address] [place] [address] [address] [place] [phone] Robina Brock, KATLYN Thrombophlebitis of deep veins of lower extremity, unspecified laterality (HCC) (Primary Dx) 09/23/2024 Telephone [facility] Oncology [address] [place] [phone] Robina Brock RN from Last 3 Months Immunizations Immunization Administration Dates Next Due H1N1 All Forms 04/17/2009 Hep A, Adult 12/16/2009,07/16/2009,05/28/2009 Influenza, Quadrivalent, Spl it, Intramuscular 03/18/2018,06/23/2017,08/07/2016 Influenza, Quadrivalent, Spl it, Preservative Free, Intramuscular 03/20/2015 Influenza, Unspecified 01/16/2010 MMR 01/07/1991 Tdap 02/17/2019,08/07/2016,05/28/2009 Surgical History Surgery Date Site/Laterality Comments [place] NEUROPLASTY &/TRANSPOS MEDIAN NRV CARPAL TUNNE Neuroplasty Decompression Median Nerve At Carpal Tunnel - (Added by TW Conv) [place] CHOLECYSTECTOMY Cholecystectomy - (Added by TW Conv) INSERT VENA CAVA FILTER CERVICAL FUSION FL UPPER GI AIR CONTRAST W KUB 02/11/2019 Left Medical History Medical History Date Comments H/O blood clots Dermatitis Family History Medical History Relation Name Comments Anxiety disorder Father Anxiety (Sy mptom) - (Added by TW Conv) Physical Disability Father Physical Disability - (Added by TW Conv) No Known Problems Maternal Grandfather No Known Problems Maternal Grandmother Diabetes Mother Diabetes Mellit us - (Added by TW Conv) Hypertension Mother Hypertension - (Added by TW Conv) No Known Problems Paternal Grandfather No Known Problems Paternal Grandmother Relation Name Status Comments Father Alive Maternal Grandfather Alive Maternal Grandmother Alive Mother Alive Paternal Grandfather Alive Paternal Grandmother Alive Social History Tobacco Use Types Packs/Day Years [...] on file 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 Gender Identity Female 08/24/2018 12:07 PM CDT Sexual Orientation Not on file 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 on file Not on file Not on file Obstetrics History Last Filed Vital Signs Vital Sign Reading [...] 09/28/2024 10:16 AM CDT Plan of Treatment Health Maintenance Due Date Last Done Comments Breast Cancer Screening-Mammogram 1975 Cervical Cancer Screening 1975 Colon Cancer Screening-Colonoscopy 1975 Depression Screening 1975 Hepatitis C Screening 1975 Hepatitis B Screening 1993 Regular Well Visit/Exam 18-64 1993 Pneumococcal vaccine <65 (1 of 2 - PCV) 1994 Influenza Vaccine (#1) 2025 8, 06/23/2017, 08/07/2016, Additional history exists DTaP/Tdap/Td Vaccine (4 - Td or Tdap) 02/17/2029 02/17/2019, 08/07/2016, 05/28/2009 Procedures Procedure Name Priority Date/Time Associated Diagnosis [...] Protime-INR (10/27/2024 11:47 AM CDT) INR 2.3(H) [id number] Parmar Comment: Reference Range 0.9-1.1 Moderate-intensity Warfarin Therapy 2.0-3.0 Higher-intensity Warfarin Therapy 3.0-4.0 PT 23.0(H) 9.0 - 11.5 sec SodaHeadLisette Parmar Comment: For additional information, please refer to http://education.Hidden Radio/faq/AFT783 (This link is being provided for informational/ educational purposes only.) Blood 10/27/2024 11:4 7 AM CDT 10/27/2024 11:47 AM CDT us Mai Mancia TURN SUPERVISOR LAB BLOOD ORDERABLES Final Result [facility] [address] [place] [address] * (ABNORMAL) Protime-INR (09/28/2024 10:10 AM CDT) PT 21.1(H) 12.0 - 14.6 sec Comment: Ref Range High Testing performed by: [facility], [address] [place] [address]., [id number] INR 1.9(H) 0.9 - 1.2 MONROE LARSON Comment: Ref Range High Interpretive data Oral anticoagulant therapeutic ranges: Venous thromboembolism prophylaxis or treatment: 2.0-3.0 CARDIOLOGY Standard range: 2.0-3.0 High-intensity range: 2.5-3.5 Refer to indication-specific guidelines for appropriate target ranges for prosthetic heart valve replacement. Current interpretive data was last revised on 2019. Testing performed by: [facility], [address] [place] [address]., [address] Blood 09/28/2024 10:1 0 AM CDT 09/28/2024 11:39 AM CDT Jean Carlos Herrera DO LAB BLOOD ORDERABLES Final R esult [facility] [address] [facility] [place] [address] * (ABNORMAL) Protime-INR (09/26/2024 10:45 AM CDT) INR 1.5(H) SodaHeadLisette Parmar Comment: Reference Range 0.9-1.1 Moderate-intensity Warfarin Therapy 2.0-3.0 Higher-intensity Warfarin Therapy 3.0-4.0 PT 16.1(H) 9.0 - 11.5 sec [facility] DiagnosticsLisette Parmar Comment: For additional information, please refer to http://education.Hidden Radio/faq/EFA638 (This link is being provided for informational/ educational purposes only.) Blood 09/26/2024 10:4 5 AM CDT 09/26/2024 10:45 AM CDT Jean Carlos Herrera DO LAB BLOOD ORDERABLES Final R esult [facility] [address] [place] [phone] from Last 3 Months Insurance [facility] [facility] Care Teams Power Barker Relationship Specialty Start Date End Date Lety Harris PA PCP - General Physician Steno Typist 01/30/22 Jean Carlos Herrera DO [address] [place] [address] MEDICAL ONCOLOGY, [address] [address] Medical Oncologist/Switch Engineer Hematology and Oncology 04/20/23
--- OUTSIDE RECORDS SUMMARY | 2024-11-20 13:12 | XMS_ITS | Clinical Summary ---
Author Organization [facility] Address [address] [facility] [place] [address] Phone Care Team Providers Care Registered Nurse Name Role Phone Yahaira Larios MD Primary Care Provider [phone] Allergies Active Allergy Reactions Criticality Noted Date Comments Amoxicillin Hives 03/28/2019 Bee Venom Anaphylaxis,Itching,Swelling 019 Morphine Itching,Swelling 03/28/2019 Oxycodone-Acetaminophen Itching,Swelling 2018 Azithromycin Hives,Swelling 03/28/2019 Medications warfarin (COUMADIN) 3 MG Tablet Take 3 mg by mouth daily. Take with 5mg dose 8 Active warfarin (COUMADIN) 5 MG Tablet Take 5 mg by mouth daily. Take with 3 mg dose 8 Active montelukast (SINGULAIR) 10 MG Tablet Take 10 mg by mouth nightly. Active EPINEPHrine (EPIPEN) 0.3 MG/0.3ML Solution Auto-injector 0.3 mg by Intramuscular route as needed. 8 Active ergocalciferol (VITAMIN D) 04548 UNIT Capsule Take 50,000 Units by mouth once a week. 8 Active lidocaine (LMX) 4 % Cream Apply 1 Dose as needed. 8 Active baclofen (LIORESAL) 20 MG Tablet Take 1 Tab by mouth 3 times daily. 90 Tab 3 9 Active ALBUTEROL SULFATE IN take by inhalation. Active MEDICAL CANNABIS Active Active Problems Problem Noted Date Diagnosed Date Chronic bilateral low back pain without sciatica 04/21/2019 Numbness and tingling of right upper extremity 1 06/22/2018 Numbness of right foot 04/21/2019 Family History Medical History Relation Name Comments Diabetes Father Diabetes Mother Hypertension Mother Relation Name Status Comments Father Mother Social History Tobacco Use Types Packs/Day Years Used Date Smoking Tobacco: Every Day Cigarettes Smokeless Tobacco: Never Tobacco Cessation:Ready to Q uit: Yes Alcohol Use Standard Drinks/Week Comments Not Currently 0 (1 standard drink = 0.6 oz pur e alcohol) Comments Unknown Sex and Gender Information Value Date Recorded Sex Assigned at Not on file Legal Sex Female 9:52 AM CDT Gender Identity Not on file Sexual Orientation Not on file Last Filed Vital Signs Vital Sign Reading Time Taken Comments Blood Pressure 120/90 04/26/2019 9:54 AM ACTIMIZE ARCHITECT Pulse 68 04/26/2019 9:54 AM ACTIMIZE ARCHITECT Temperature 36.9 C (98.4 F) 04/26/2019 9:54 AM ACTIMIZE ARCHITECT Respiratory Rate 17 04/21/2019 1:30 PM ACTIMIZE ARCHITECT Oxygen Saturation 98% 04/26/2019 9:54 AM ACTIMIZE ARCHITECT Inhaled Oxygen Concentration - - Weight 100.6 kg (221 lb 12.8 oz) 04/21/2019 1:30 PM ACTIMIZE ARCHITECT Height 172.7 cm (5' 8) 04/21/2019 1:30 PM ACTIMIZE ARCHITECT Body Mass Index 33.72 04/21/2019 1:30 PM ACTIMIZE ARCHITECT Plan of Treatment Health Maintenance Due Date Last Done Comments Hepatitis C Virus (HCV) Screening 1975 Hepatitis B Immunization (1 of 3 - 19+ 3-dose series) 1994 Cologuard 2020 Colonoscopy 2020 Colorectal Cancer Screening 2020 Immunochemical Fecal Occult Blood 2020 SARS-COV-2 Immunization ( season) 2024 Influenza Immunization (Season Ended) 2025 03/18/2018, 06/23/2017, 08/07/2016, Additional history exists Respiratory Syncytial Virus (RSV) Immunization (Adult) (1 - 1-dose 75+ series) 2050 DTaP/Tdap/Td Immunization Discontinued 08/07/2016 TdaP Immunization Completed 08/07/2016 Human Papillomavirus (HPV) Immunization Aged Out No longer eligible based on patient's age to complete this topic Meningococcal Immunization (ACWY) Aged Out No longer eligible based on patient's age to complete this topic Pneumococcal Immunization Combined Aged Out No longer eligible based on patient's age to complete this topic Rotavirus Immunization Aged Out No lo nger eligible based on patient's age to complete this topic Insurance MEDICAID [employer] Care Teams Registered Nurse Relationship Specialty Start Date End Date Yahaira Larios MD [address] [place] [address] PCP - General Internal Medicine 01/03/19
[2024-11-20 13:13] VITALS: BP 142/83; PULSE 77; RESP 18; TEMP 36.8; O2SAT 100
[2024-11-20 13:41] LABS: Hematocrit 30.7 % (37.0-47.0); Hemoglobin 9.3 g/dL (12.0-15.0); Immature Granulocyte Percent A 0.4 % (0-0.5); Lymphocytes Absolute Auto 1.79 K/mm3 (0.9-3.2); Mean Corpuscular HGB Conc 30.3 g/dl (32-36); Mean Corpuscular Hemoglobin 23.3 pg (26-34); Mean Corpuscular Volume 76.8 fl (80-100); Nucleated Red Blood Cells Absolute Auto 0.000 K/mm3 (0.0-0.012); Nucleated Red Blood Cells Perc 0.0 % (0.0-0.2); Platelet Count Result 203 k/mm3 (150-375); Red Blood Count 4.00 M/mm3 (4.2-5.4); White Blood Count 7.9 K/mm3 (4.5-10.0)
[2024-11-20 13:47] VITALS: BP 133/90; PULSE 77; RESP 14; TEMP 36.8; O2SAT 100
[2024-11-20 13:52] LABS: BEDSIDEPREGUCG Negative (Negative)
[2024-11-20 13:53] LABS: INR 3.6; Prothrombin Time 34.8 Seconds (11.1-14.7)
[2024-11-20 13:54] LABS: Partial Thromboplastin Time 73.8 Seconds (22.3-36.8)
--- OUTSIDE RECORDS SUMMARY | 2024-11-20 14:12 | XMS_ITS | Clinical Summary ---
Author Organization [facility] Address [address] [place] [phone] Care Team Providers Care Licensed Journeyman Electrician Name Role Phone Lety Harris Primary Care Provider + Jean Carlos Herrera DO Unavailable [phone] Allergies Active Allergy Reactions Criticality Noted Date [...] Department Care Team Description 11/16/2024 Orders Only [facility] at [facility] [place] [facility] [address] [place] [address] Advanced Medicine [address] [place] [address] Lety Harris PA Cervical radiculopathy (Primary Dx) 10/28/2024 Anticoagulation Telephone Call [facility] Oncology [address] [place] [address] [place] [phone] Robina Brock RN 10/28/2024 Telephone [facility] Oncology [address] [place] [address] [place] [phone] Robina Brock RN 09/28/2024 10:15 AM CDT Office Visit [facility] Oncology [address] [place] [address] [place] [phone] Jean Carlos Herrera DO Thrombophlebitis of deep veins of lower extremity, unspecified laterality (HCC) (Primary Dx); Encounter for monitoring warfarin therapy 09/28/2024 9:45 AM CDT Lab [facility] at [address] [id number] Thrombophlebitis of deep veins of lower extremity, unspecified laterality (HCC) 09/27/2024 Telephone [facility] Oncology [address] [place] [address] [address] [place] [phone] Robina Brock, KATLYN 09/26/2024 Orders Only [facility] Oncology [address] [place] [address] [address] [place] [phone] Robina Brock, KATLYN Thrombophlebitis of deep veins of lower extremity, unspecified laterality (HCC) (Primary Dx) 09/23/2024 Telephone [facility] Oncology [address] [place] [phone] Robina Brock RN from Last 3 Months Immunizations Immunization Administration Dates Next Due H1N1 All Forms 04/17/2009 Hep A, Adult 12/16/2009,07/16/2009,05/28/2009 Influenza, Quadrivalent, Spl it, Intramuscular 03/18/2018,06/23/2017,08/07/2016 Influenza, Quadrivalent, Spl it, Preservative Free, Intramuscular 03/20/2015 Influenza, Unspecified 01/16/2010 MMR 01/07/1991 Tdap 02/17/2019,08/07/2016,05/28/2009 Surgical History Surgery Date Site/Laterality Comments [place] NEUROPLASTY &/TRANSPOS MEDIAN NRV CARPAL TUNNE Neuroplasty Decompression Median Nerve At Carpal Tunnel - (Added by TW Conv) [place] CHOLECYSTECTOMY Cholecystectomy - (Added by TW Conv) [...] on file 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 Gender Identity Female 08/24/2018 12:07 PM CDT [...] Protime-INR (10/27/2024 11:47 AM CDT) INR 2.3(H) PicwingEm Parmar Comment: Reference Range 0.9-1.1 Moderate-intensity Warfarin Therapy 2.0-3.0 Higher-intensity Warfarin Therapy 3.0-4.0 PT 23.0(H) 9.0 - 11.5 sec FigguLisette Parmar Comment: For additional information, please refer to http://education.CreditCardsOnline/faq/YWA218 (This link is being provided for informational/ educational purposes only.) Blood 10/27/2024 11:4 7 AM CDT 10/27/2024 11:47 AM CDT us Mai Mancia MINERAL MIXER LAB BLOOD ORDERABLES Final Result [facility] [address] [place] [address] * (ABNORMAL) Protime-INR (09/28/2024 10:10 AM CDT) PT 21.1(H) 12.0 - 14.6 sec Comment: Ref Range High Testing performed by: [facility], [address] [place] [address]., [address] INR 1.9(H) 0.9 - 1.2 MONROE LARSON Comment: Ref Range High Interpretive data Oral anticoagulant therapeutic ranges: Venous thromboembolism prophylaxis or treatment: 2.0-3.0 CARDIOLOGY Standard range: 2.0-3.0 High-intensity range: 2.5-3.5 Refer to indication-specific guidelines for appropriate target ranges for prosthetic heart valve replacement. Current interpretive data was last revised on 2019. Testing performed by: [facility], [address] [place] [address]., [address] Blood 09/28/2024 10:1 0 AM CDT 09/28/2024 11:39 AM CDT Jean Carlos Herrera DO LAB BLOOD ORDERABLES Final R esult [facility] [address] [facility] Department [place] [address] * (ABNORMAL) Protime-INR (09/26/2024 10:45 AM CDT) INR 1.5(H) FigguLisette Parmar Comment: Reference Range 0.9-1.1 Moderate-intensity Warfarin Therapy 2.0-3.0 Higher-intensity Warfarin Therapy 3.0-4.0 PT 16.1(H) 9.0 - 11.5 sec [facility] Parmar Comment: For additional information, please refer to http://education.CreditCardsOnline/faq/YYS967 (This link is being provided for informational/ educational purposes only.) Blood 09/26/2024 10:4 5 AM CDT 09/26/2024 10:45 AM CDT Jean Carlos Herrera DO LAB BLOOD ORDERABLES Final R esult [facility] [address] [place] [address] from Last 3 Months Insurance [facility] [address] [facility] [address] Care Teams Licensed Journeyman Electrician Relationship Specialty Start Date End Date Lety Harris PA PCP - General Physician Hair Boiler 01/30/22 Jean Carlos Herrera DO [address] [place] [address] MEDICAL ONCOLOGY, [address] [address] Medical Oncologist/Label Paster Hematology and Oncology 04/20/23
--- OUTSIDE RECORDS SUMMARY | 2024-11-20 14:12 | XMS_ITS | Clinical Summary ---
Author Organization [facility] Address [address] [place] [address] Care Team Providers Care Supervisor Hot Dip Tinning Name Role Phone Unavailable Primary Care Provider [...] 15 mL 8 Active ergocalciferol (VITAMIN D2) 01302 units capsule Take 1 capsule (50,000 Units [...] lumbar nucleus pulposus 09/25/2017 10/15/2017 Overview (09/25/2017): [id number] treated Weakness of left lower limb 09/24/2017 [...]
--- OUTSIDE RECORDS SUMMARY | 2024-11-20 14:12 | XMS_ITS | Clinical Summary ---
Author Organization [facility] Address [address] [facility] [place] [address] Care Team Providers Care Deburring Machine Operator Name Role Phone Yahaira Larios MD Primary Care Provider [phone] Source Comments [facility],non-owned Affiliates and Associated Physician Practices is amultiple site organization consisting of ambulatory clinics and hospital sitesin [place], [place] and [place]. This disclosure is being madepursuant to the Care Everywhere program and may not contain all information available regarding this patient. 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 Gender Identity Not on file Sexual Orientation [...] this topic Medical Devices Implanted Type Area Photo Offset Printer Device Identifier Shelf Expiration Date Model / Serial / Lot Screw Set Ti M6 Btrs Thrd Spne Post Vrtx Implanted:Qty: 8 on 09/16/2017 by Sherrie Elias MD at [facility] N/A: Spine Cervical Medtronic [employer] [id number] / / Screw 3.5mm 12mm Spne Thor Ma Vrtx Mx Ti Implanted:Qty: 1 on 09/16/2017 by Sherrie Elias MD at [facility] N/A: Spine Cervical Medtronic Sofamor [employer] [id number] / / Screw 3.5mm 14mm Spne Thor Ma Vrtx Mx Ti Implanted:Qty: 7 on 09/16/2017 by Sherrie Elias MD at [facility] N/A: Spine Cervical Medtronic Sofamor [employer] [id number] / / 3.5x55mm Pre Bent Aron Implanted:Qty: 2 on 09/16/2017 by Sherrie Elias MD at [facility] N/A: Spine Cervical [id number] / / Graft Bone Magnifuse Dbm 5x1cm Spne Crv - [id number] Implanted:Qty: 1 on 09/16/2017 by Sherrie Elias MD at [facility] N/A: Spine Cervical [employer] 04/16/2019 [id number] / [id number] / Procedures Procedure Name Priority Date/Time Associated [...] >60 mL/min/1.7 3m2 10/15/2017 6:39 AM CDT [facility] eGFR by MDRD >60 >60 mL/min/1.7 3m2 10/15/2017 6:39 AM CDT [facility] Blood BLOOD SPECIMEN / Unknown Lab Venipuncture / Unknown 10/15/2017 5:54 AM CDT 10/15/2017 6:05 AM CDT Suzanna Bhakta MD LAB - CHEMISTRY ORDERABLES nal Result [facility] [address] [place] [address] from Last 3 Months or Most Recently Relevant to Health Maintenance Insurance [facility] [employer] [facility] Advance Directives * Full Code (Latest Code [...] 6:23 PM 06/02/2009 1:14 AM Care Teams Deburring Machine Operator Relationship Specialty Start Date End Date Yahaira Larios MD [address] [place] [address] PCP - General 06/30/18
--- OUTSIDE RECORDS SUMMARY | 2024-11-20 14:12 | XMS_ITS | Clinical Summary ---
Author Organization [facility] Address [facility] [place] [address] Care Team Providers Care Pump Stitcher Name Role Phone Yahaira Larios MD Primary Care Provider [phone] Allergies Active Allergy Reactions Criticality Noted Date [...] MG/0.3ML injection 8 Active vitamin D2, ergocalciferol, 87314 UNITS capsule 8 Active warfarin 5 MG [...] Documents on File Type Date Recorded Patient Jinriksha Driver Expl anation Legal Documents 10/23/2020 11:16 AM RECVD & CMPLTD ATTY REQ. FOR HB BILLS FOR [facility] FOR [facility] LAW Care Teams Pump Stitcher Relationship Specialty Start Date End Date Yahaira Larios MD [address] [place] [address] PCP - General INTERNAL MEDICINE 02/02/18
--- OUTSIDE RECORDS SUMMARY | 2024-11-20 14:12 | XMS_ITS | Referral Summary ---
Author Organization [facility] Address [address] [place] [address] Care Team Providers Care Liquefier Name Role Phone Lety Harris Primary Care Provider + Jean Carlos Herrera DO Unavailable [phone] Encounters Date Type Department Care Team Description 11/16/2024 Orders Only [facility] Center at the [facility] [address] [address] Lety Harris PA Cervical radiculopathy (Primary Dx) 10/28/2024 Anticoagulation Telephone Call [facility] [address] [place] [address] [place] [phone] Robina Brock RN 10/28/2024 Telephone [facility] [address] [place] [address] [address] [place] [address] Robina Brock, KATLYN 09/28/2024 9:45 AM CDT Lab [facility] at [address] [id number] Thrombophlebitis of deep veins of lower extremity, unspecified laterality (HCC) 09/28/2024 10:15 AM CDT Office Visit [facility] [address] [place] [address] [place] [phone] Jean Carlos Herrera DO Thrombophlebitis of deep veins of lower extremity, unspecified laterality (HCC) (Primary Dx); Encounter for monitoring warfarin therapy 09/27/2024 Telephone [facility] [address] [place] [address] [address] [place] [address] Robina Brock RN 09/26/2024 Orders Only [facility] [address] [place] [address] [address] [place] [address] Robina Brock RN Thrombophlebitis of deep veins of lower extremity, unspecified laterality (HCC) (Primary Dx) 09/23/2024 Telephone [facility] [address] [place] [address] [address] [place] [address] Robina Brock RN from Last [...] on file 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 Gender Identity Female 08/24/2018 12:07 PM CDT [...] Protime-INR (10/27/2024 11:47 AM CDT) INR 2.3(H) [facility] Parmar Comment: Reference Range 0.9-1.1 Moderate-intensity Warfarin Therapy 2.0-3.0 Higher-intensity Warfarin Therapy 3.0-4.0 PT 23.0(H) 9.0 - 11.5 sec [facility] Parmar Comment: For additional information, please refer to http://education.[employer]/faq/ZWA282 (This link is being provided for informational/ educational purposes only.) Blood 10/27/2024 11:4 7 AM CDT 10/27/2024 11:47 AM CDT Mai Mancia SALAD CHEF LAB BLOOD ORDERABLES Final Result Performing Organization Address City/[facility]/ZIP Co de Phone Number [facility] [address] [place] [address] * (ABNORMAL) Protime-INR (09/28/2024 10:10 AM CDT) PT 21.1(H) 12.0 - 14.6 sec Comment: Ref Range High Testing performed by: [facility], [address] [place] [address]., [id number] INR 1.9(H) 0.9 - 1.2 MONROE LARSON Comment: Ref Range High Interpretive data Oral anticoagulant therapeutic ranges: Venous thromboembolism prophylaxis or treatment: 2.0-3.0 CARDIOLOGY Standard range: 2.0-3.0 High-intensity range: 2.5-3.5 Refer to indication-specific guidelines for appropriate target ranges for prosthetic heart valve replacement. Current interpretive data was last revised on 2019. Testing performed by: [facility], [address] [place] [address]., [id number] Blood 09/28/2024 10:1 0 AM CDT 09/28/2024 11:39 AM CDT Jean Carlos Herrera DO LAB BLOOD ORDERABLES Final R esult Performing Organization Address City/[facility]/ZIP Co de Phone Number [facility]ROE [address] [facility] Department of Laboratories [place], [place] [phone] * (ABNORMAL) Protime-INR (09/26/2024 10:45 AM CDT) INR 1.5(H) [facility]OR[facility]ette Parmar Comment: Reference Range 0.9-1.1 Moderate-intensity Warfarin Therapy 2.0-3.0 Higher-intensity Warfarin Therapy 3.0-4.0 PT 16.1(H) 9.0 - 11.5 sec [facility]ette Parmar Comment: For additional information, please refer to http://education.[employer]/faq/MHZ140 (This link is being provided for informational/ educational purposes only.) Blood 09/26/2024 10:4 5 AM CDT 09/26/2024 10:45 AM CDT Jean Carlos Herrera DO LAB BLOOD ORDERABLES Final R esult [facility] [address] [place] [address] from Last 3 Months Insurance [facility] [address] [facility] [address] Care Teams Liquefier Relationship Specialty Start Date End Date Lety Harris PA PCP - General Physician Video Poker [place] 01/30/22 Jean Carlos Herrera DO [address] [place] [address] MEDICAL ONCOLOGY, [address] [address] Medical Oncologist/Singing Teacher Hematology and Oncology 04/20/23
--- OUTSIDE RECORDS SUMMARY | 2024-11-20 14:12 | XMS_ITS ---
Author Organization Unknown Plan of Treatment Description Planned Activity Planned Timing [facility] is a provider organization who partners directly with Health Plans and provides integrated primary care, behavioral health, and administrator social welfare for an attributed population Letter encounter to patientTelephone encounter Nov 10, 2024Jul 2024 Patient Care team information Name Category Status Period Participants - - Proposed period not known -
--- OUTSIDE RECORDS SUMMARY | 2024-11-20 14:12 | XMS_ITS | Clinical Summary ---
Author Organization [facility] Address [address] [facility], [place] [address] Phone Care Team Providers Care Candlemaker Name Role Phone Yahaira Larios MD Primary Care Provider [phone] Allergies Active Allergy Reactions Criticality Noted Date [...] as needed. 8 Active ergocalciferol (VITAMIN D) 44875 UNIT Capsule Take 50,000 Units by mouth [...] Comments Blood Pressure 120/90 04/26/2019 9:54 AM RECORDING ARTIST Pulse 68 04/26/2019 9:54 AM RECORDING ARTIST Temperature 36.9 C (98.4 F) 04/26/2019 9:54 AM RECORDING ARTIST Respiratory Rate 17 04/21/2019 1:30 PM RECORDING ARTIST Oxygen Saturation 98% 04/26/2019 9:54 AM RECORDING ARTIST Inhaled Oxygen Concentration - - Weight 100.6 kg (221 lb 12.8 oz) 04/21/2019 1:30 PM RECORDING ARTIST Height 172.7 cm (5' 8) 04/21/2019 1:30 PM RECORDING ARTIST Body Mass Index 33.72 04/21/2019 1:30 PM RECORDING ARTIST Plan of Treatment Health Maintenance Due Date [...] age to complete this topic Insurance MEDICAID [employer]ID [employer] Care Teams Candlemaker Relationship Specialty Start Date End Date Yahaira Larios MD [address] [place] [address] PCP - General Internal Medicine 01/03/19
--- OUTSIDE RECORDS SUMMARY | 2024-11-20 14:12 | XMS_ITS | Encounter Summary ---
Author Organization [facility] Address [facility] [place] [address] Care Team Providers Care Trimming Department Blocker Name Role Phone Yahaira Larios MD Primary Care Provider [phone] Encounter Details Date Type Department Care Team (Late st Contact Info) Description 04/28/2018 Discharge [facility] [place] [address] Ghazala Miranda, [place] [address] Social History Tobacco Use Types Packs/Day Years [...] on filedocumented in this encounter Care Teams Trimming Department Blocker Relationship Specialty Start Date End Date Yahaira Larios MD [address] [place] [address] PCP - General INTERNAL MEDICINE 02/02/18 documented as of this encounter
[2024-11-20 14:18] LABS: Alanine Aminotransferase 14 U/L (6-35); Albumin Level 3.7 g/dL (3.5-5.1); Alkaline Phosphatase 74 U/L (38-126); Anion Gap 6 mmol/L (4-12); Aspartate Amino Transferase 26 U/L (14-36); Bilirubin,Total 0.2 mg/dL (0.2-1.3); Blood Urea Nitrogen 8 mg/dL (7-17); Calcium 8.6 mg/dL (8.4-10.2); Carbon Dioxide 25 mmol/L (22-30); Chloride 107 mmol/L (98-107); Estimated CRCL calculation 91 ml/min; Estimated Glomerular Filt Rate > 60; Glucose 107 mg/dL (65-110); Potassium 3.8 mmol/L (3.4-5.0); Sodium 138 mmol/L (137-145); Total Protein 6.6 g/dL (6.3-8.2)
--- NOTE | 2024-11-20 14:35 | ED.FEMALEGU ---
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 Patient states her LMP was 10/16/2024. On 11/08/2024 she took a Plan B and started having vaginal bleeding 11/13/24. She states over several days the bleeding increased until a PET yesterday she was passing several large clots. She states she was changing her pad every hour and a half until the bleeding significantly increased yesterday and she was having to change her pad every 45 minutes. She states today the bleeding has significantly lightheaded she has not had to change her pad in several hours and she has not noticed any blood clots. She reports mild suprapubic cramping and pressure but denies any focal pain. She denies dysuria, fever, nausea or vomiting, vaginal discharge, concern for STDs, however she would like to be checked for STDs. She does not have an OBGYN. She has a fire medic. Dr. Herrera, with [facility] who manages her warfarin. She states she last had her INR checked 1 month ago and was 2.7. She notes she recently moved and has been disorganized with taking her medications and is worried that there have been times for she accidentally has taken 2 warfarin in a day. She reports a hx of DVT and PE in 2003 which was thought to be provoked from NuvaRing. She also had an IVC filter placed in 2004. She was then taken off of her anticoagulants in 2015, then had a spinal fusion in 2018 which caused temporary paralyzation, and the patient unfortunately developed a DVT again and has been on warfarin since. She denies chest pain, shortness of breath, lightheadedness or syncope. <Shweta Vallejo PA-C - Last Filed: 11/20/24 15:41> Related Data Home medications: Home Medications ?Medication ?Instructions ?Recorded ?Confirmed ?Last Taken ?Type cholecalciferol (vitamin D3) 50 50 mcg PO DAILY 02/10/22 05/24/24 06/26/23 09:00 History mcg (2,000 unit) capsule (Vitamin D3) warfarin 3 mg tablet 8 mg PO DAILY 02/10/22 05/24/24 06/27/23 20:00 History epinephrine 0.3 mg/0.3 mL 11/20/24 Unknown History injection, auto-injector <Shweta Vallejo PA-C - Last Filed: 11/20/24 15:41> Allergies/Adverse reactions: Allergies Allergy/AdvReac Type Severity Reaction Status Date / Time bee venom protein (honey Allergy Severe Itching Verified 11/20/24 13:18 bee) (bees) amoxicillin Allergy Intermediate Rash Verified 11/20/24 13:18 azithromycin (From Zithromax) Allergy Intermediate Rash Verified 11/20/24 13:18 Bleach (Sodium Hypochlorite) Allergy Intermediate Rash Verified 11/20/24 13:18 adhesive tape Allergy Rash Verified 11/20/24 13:18 morphine Allergy Itching Verified 11/20/24 13:18 oxycodone (From Percocet) Allergy Itching Verified 11/20/24 13:18 <Shweta Vallejo PA-C - Last Filed: 11/20/24 15:41> Review of Systems Review of Systems: All systems reviewed & are unremarkable except as noted in HPI and below <Shweta Vallejo PA-C - Last Filed: 11/20/24 15:41> [facility] Past Medical History Medical History: Medical History Pulmonary embolism 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 Lipoma of extremity Removed from RT thigh Smoker Diabetes Patient says she does not take any medications anymore due to controlled with diet Hypertension Patient says she does not take any medications anymore due to controlled with diet <Shweta Vallejo PA-C - Last Filed: 11/20/24 15:41> Surgical History Surgical History: Surgical History History of carpal tunnel surgery bilateral History of spinal fusion 09/2017-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 <Shweta Vallejo PA-C - Last Filed: 11/20/24 15:41> Family History Family History: Family History Father Hypertension Mother Hypertension Diabetes mellitus <Shweta Vallejo PA-C - Last Filed: 11/20/24 15:41> Social History Social History: Social History Smoking packs per day: 0.5 Smoking cigarettes per day: 10.0 Years smoked: 25 Smoking pack-years: 12.50 Smoking status: Current every day smoker Tobacco type: cigarettes Second hand tobacco smoke exposure: No Alcohol intake: current Drinks per week: 1 Substance use: current Substance use type: marijuana Other substance usage details: medical marijuana Last use: 06/27/23 Do You Feel Safe in your Home?: Yes Lack of Transportation: No Lack of Food: Never True Current Housing: I Have Housing Concerned About Future Housing: No Difficulty Paying Gas/Electric Bills: No Difficulty Paying for Meds: No Currently Unemployed: YES Education: Bachelor's Degree Difficulty w/ Childcare or Family Care: No Living arrangements: with family Occupation/Education: unemployed Gender identity (if verbalized by the patient): Female Spiritual care concerns: No <Shweta Vallejo PA-C - Last Filed: 11/20/24 15:41> Exam Narrative: GENERAL: Well-appearing, well-nourished, and in no acute distress. HEAD: Normocephalic, atraumatic. EYES: PERRLA and EOMI. ENT: Nares clear, no rhinorrhea or epistaxis. Mucous membranes moist. NECK: Supple. CHEST: Clear to auscultation. No respiratory distress. HEART: Regular rate and rhythm. No murmur heard. Normal peripheral pulses. ABDOMEN: Normoactive bowel sounds. Abdomen soft with mild suprapubic tenderness. No rebound or rigidity. No CVA tenderness : Mild amount of bleeding in the vaginal vault with no clots, cervical os closed. No discharge, no CMT. No adnexal masses or tenderness EXTREMITIES: Normal range of motion. No edema. SKIN: Warm, dry, no rash. NEURO: No focal deficits. Alert and oriented x3 <Shweta Vallejo PA-C - Last Filed: 11/20/24 15:41> Course MASTER POLICE DETECTIVE/PA Physician Supervision For this patient encounter, I reviewed the MASTER POLICE DETECTIVE or PA documentation, treatment plan, and medical decision making; and I had [id number] time with this patient. <Jesús Koch MD - Last Filed: 11/20/24 19:03> Vital Signs Vital signs: Vital Signs Temperature 98.3 F 11/20/24 13:13 Pulse Rate 77 11/20/24 13:13 Respiratory Rate 18 11/20/24 13:13 Blood Pressure 142/83 H 11/20/24 13:13 Pulse Oximetry 100 11/20/24 13:13 Oxygen Delivery Room Air 11/20/24 13:13 Temperature 98.3 F 11/20/24 13:47 Pulse Rate 77 11/20/24 13:47 Respiratory Rate 14 11/20/24 13:47 Blood Pressure 133/90 11/20/24 13:47 Pulse Oximetry 100 11/20/24 13:47 Oxygen Delivery Room Air 11/20/24 13:13 <Shweta Vallejo PA-C - Last Filed: 11/20/24 15:41> Vital Signs Temperature 98.3 F 11/20/24 13:13 Pulse Rate 77 11/20/24 13:13 Respiratory Rate 18 11/20/24 13:13 Blood Pressure 142/83 H 11/20/24 13:13 Pulse Oximetry 100 11/20/24 13:13 Oxygen Delivery Room Air 11/20/24 13:13 Temperature 98.3 F 11/20/24 13:47 Pulse Rate 77 11/20/24 13:47 Respiratory Rate 14 11/20/24 13:47 Blood Pressure 133/90 11/20/24 13:47 Pulse Oximetry 100 11/20/24 13:47 Oxygen Delivery Room Air 11/20/24 13:13 <Jesús Koch MD - Last Filed: 11/20/24 19:03> MDM - Female Genitourinary MDM Narrative Medical decision making narrative: 49-year-old female with history of PE/DVT on warfarin presents emergency department for abnormal uterine bleeding after taking Plan B on 11/08/2024. Patient started having vaginal bleeding on 11/13/2024. Yesterday bleeding increased and she was reportedly having to change her pad every 45 minutes, however she states the bleeding has significantly like today and she is no longer passing clots. He vital signs are stable. No hypotension or tachycardia. Patient is resting comfortably in exam bed. She is afebrile and nontoxic appearing. Lab work shows no leukocytosis. Hemoglobin is 9.3. Most recent hemoglobin for comparison is June 2023 at 12.2. She does have a low MCV is 76.8 and low MCH 23.3. Her chemistries are unremarkable. UA with large blood consistent with vaginal bleeding, no bacteria or white blood cells concerning for UTI. is negative. Chlamydia, gonorrhea Trichomonas are pending. Patient politely declines empiric treatment and will wait for test results. Her INR is elevated at 3.6. Patient was given a L fluids and Tylenol. Her vital signs remain stable. She has not had to change her pad in over 3 hours. I discussed the case with OBGYN travel information center supervisor, Dr. Marie, who agrees patient is stable for discharge home. Advises iron supplement and outpatient follow-up. I advised patient to hold her warfarin until she contacts her fire medic tomorrow to discuss further dosing and management. The patient was given strict ED return precautions. She is agreeable with the plan verbalized understanding. Discharged in stable condition. f/u oupt. iron <Shweta Vallejo PA-C - Last Filed: 11/20/24 15:41> Lab Data Result diagrams: 11/20/24 13:36 11/20/24 13:36 <Shweta Vallejo PA-C - Last Filed: 11/20/24 15:41> Labs: Lab Results 11/20/24 11/20/24 11/20/24 Range/Units 13:36 13:47 15:02 WBC 7.9 (4.5-10.0) K/mm3 RBC 4.00 L (4.2-5.4) M/mm3 Hgb 9.3 L (12.0-15.0) g/dL Hct 30.7 L (37.0-47.0) % MCV 76.8 L (80-100) fl MCH 23.3 L (26-34) pg MCHC 30.3 L (32-36) g/dl RDW 17.9 H (11.5-14.5) % Plt Count 203 (150-375) k/mm3 MPV 10.7 H (7.4-10.4) fl Immature Gran % (Auto) 0.4 (0-0.5) % Neut % (Auto) 64.9 (45.5-73.1) % Lymph % (Auto) 22.6 (18.3-44.2) % [place] % (Auto) 8.7 H (2.6-8.5) % Eos % (Auto) 3.0 (0-4.4) % Baso % (Auto) 0.4 (0.2-1.2) % Lymph # (Auto) 1.79 (0.9-3.2) K/mm3 [place] # (Auto) 0.7 H (0.1-0.6) K/mm3 Eos # (Auto) 0.2 (0-0.3) K/mm3 Baso # (Auto) 0.0 (0.0-0.1) K/mm3 Abs Immat Gran (auto) 0.03 (0.00-0.031) K/mm3 Absolute Neuts (auto) 5.2 (1.3-6.7) K/mm3 Absolute Nucleated RBC 0.000 (0.0-0.012) K/mm3 Nucleated RBC % 0.0 (0.0-0.2) % PT 34.8 H (11.1-14.7) Seconds INR 3.6 APTT 73.8 H (22.3-36.8) Seconds Sodium 138 (137-145) mmol/L Potassium 3.8 (3.4-5.0) mmol/L Chloride 107 (98-107) mmol/L Carbon Dioxide 25 (22-30) mmol/L Anion Gap 6 (4-12) mmol/L BUN 8 D (7-17) mg/dL Creatinine 0.79 (0.7-1.0) mg/dL Estim Creat Clear Calc 91 ml/min Estimated GFR > 60 (59 - ) Glucose 107 (65-110) mg/dL Calcium 8.6 (8.4-10.2) mg/dL Total Bilirubin 0.2 (0.2-1.3) mg/dL AST 26 (14-36) U/L ALT 14 (6-35) U/L Alkaline Phosphatase 74 (38-126) U/L Total Protein 6.6 (6.3-8.2) g/dL Albumin 3.7 (3.5-5.1) g/dL Urine Color Yellow (Yellow) Urine Appearance Cloudy H (Clear) Urine pH 5.5 (5.0-9.0) Ur Specific [place] 1.013 (1.001-1.035) Urine Protein Negative (Negative) mg/dL Urine Glucose (UA) Negative (Negative) mg/dL Urine Ketones Negative (Negative) mg/dL Ur Blood (Man) 3+ H (Negative) Urine Nitrate Negative (Negative) Urine Bilirubin Negative (Negative) Urine Urobilinogen 0.2 (<2.0) mg/dL Leukocyte Esterase Rfl Negative (Negative) EVELINA/UL Urine RBC >100 H (0-2) /hpf Urine WBC 0-5 (0-3) /hpf Ur Squamous Epith Cells None seen (Few) /hpf Urine Bacteria None seen /hpf Urine Casts 0-2 POC Urine HCG, Qual Negative (Negative) C. trachomatis (PCR) (NOT DETECTE) N. gonorrhoeae (PCR) (NOT DETECTE) T. vaginalis (PCR) (NOT DETECTE) 11/20/24 Range/Units 15:11 WBC (4.5-10.0) K/mm3 RBC (4.2-5.4) M/mm3 Hgb (12.0-15.0) g/dL Hct (37.0-47.0) % MCV (80-100) fl MCH (26-34) pg MCHC (32-36) g/dl RDW (11.5-14.5) % Plt Count (150-375) k/mm3 MPV (7.4-10.4) fl Immature Gran % (Auto) (0-0.5) % Neut % (Auto) (45.5-73.1) % Lymph % (Auto) (18.3-44.2) % [place] % (Auto) (2.6-8.5) % Eos % (Auto) (0-4.4) % Baso % (Auto) (0.2-1.2) % Lymph # (Auto) (0.9-3.2) K/mm3 [place] # (Auto) (0.1-0.6) K/mm3 Eos # (Auto) (0-0.3) K/mm3 Baso # (Auto) (0.0-0.1) K/mm3 Abs Immat Gran (auto) (0.00-0.031) K/mm3 Absolute Neuts (auto) (1.3-6.7) K/mm3 Absolute Nucleated RBC (0.0-0.012) K/mm3 Nucleated RBC % (0.0-0.2) % PT (11.1-14.7) Seconds INR APTT (22.3-36.8) Seconds Sodium (137-145) mmol/L Potassium (3.4-5.0) mmol/L Chloride (98-107) mmol/L Carbon Dioxide (22-30) mmol/L Anion Gap (4-12) mmol/L BUN (7-17) mg/dL Creatinine (0.7-1.0) mg/dL Estim Creat Clear Calc ml/min Estimated GFR (59 - ) Glucose (65-110) mg/dL Calcium (8.4-10.2) mg/dL Total Bilirubin (0.2-1.3) mg/dL AST (14-36) U/L ALT (6-35) U/L Alkaline Phosphatase (38-126) U/L Total Protein (6.3-8.2) g/dL Albumin (3.5-5.1) g/dL Urine Color (Yellow) Urine Appearance (Clear) Urine pH (5.0-9.0) Ur Specific [place] (1.001-1.035) Urine Protein (Negative) mg/dL Urine Glucose (UA) (Negative) mg/dL Urine Ketones (Negative) mg/dL Ur Blood (Man) (Negative) Urine Nitrate (Negative) Urine Bilirubin (Negative) Urine Urobilinogen (<2.0) mg/dL Leukocyte Esterase Rfl (Negative) EVELINA/UL Urine RBC (0-2) /hpf Urine WBC (0-3) /hpf Ur Squamous Epith Cells (Few) /hpf Urine Bacteria /hpf Urine Casts POC Urine HCG, Qual (Negative) C. trachomatis (PCR) Not detected (NOT DETECTE) N. gonorrhoeae (PCR) Not detected (NOT DETECTE) T. vaginalis (PCR) Not detected (NOT DETECTE) <Shweta Vallejo PA-C - Last Filed: 11/20/24 15:41> Lab Results 11/20/24 11/20/24 11/20/24 Range/Units 13:36 13:47 15:02 WBC 7.9 (4.5-10.0) K/mm3 RBC 4.00 L (4.2-5.4) M/mm3 Hgb 9.3 L (12.0-15.0) g/dL Hct 30.7 L (37.0-47.0) % MCV 76.8 L (80-100) fl MCH 23.3 L (26-34) pg MCHC 30.3 L (32-36) g/dl RDW 17.9 H (11.5-14.5) % Plt Count 203 (150-375) k/mm3 MPV 10.7 H (7.4-10.4) fl Immature Gran % (Auto) 0.4 (0-0.5) % Neut % (Auto) 64.9 (45.5-73.1) % Lymph % (Auto) 22.6 (18.3-44.2) % [place] % (Auto) 8.7 H (2.6-8.5) % Eos % (Auto) 3.0 (0-4.4) % Baso % (Auto) 0.4 (0.2-1.2) % Lymph # (Auto) 1.79 (0.9-3.2) K/mm3 [place] # (Auto) 0.7 H (0.1-0.6) K/mm3 Eos # (Auto) 0.2 (0-0.3) K/mm3 Baso # (Auto) 0.0 (0.0-0.1) K/mm3 Abs Immat Gran (auto) 0.03 (0.00-0.031) K/mm3 Absolute Neuts (auto) 5.2 (1.3-6.7) K/mm3 Absolute Nucleated RBC 0.000 (0.0-0.012) K/mm3 Nucleated RBC % 0.0 (0.0-0.2) % PT 34.8 H (11.1-14.7) Seconds INR 3.6 APTT 73.8 H (22.3-36.8) Seconds Sodium 138 (137-145) mmol/L Potassium 3.8 (3.4-5.0) mmol/L Chloride 107 (98-107) mmol/L Carbon Dioxide 25 (22-30) mmol/L Anion Gap 6 (4-12) mmol/L BUN 8 D (7-17) mg/dL Creatinine 0.79 (0.7-1.0) mg/dL Estim Creat Clear Calc 91 ml/min Estimated GFR > 60 (59 - ) Glucose 107 (65-110) mg/dL Calcium 8.6 (8.4-10.2) mg/dL Total Bilirubin 0.2 (0.2-1.3) mg/dL AST 26 (14-36) U/L ALT 14 (6-35) U/L Alkaline Phosphatase 74 (38-126) U/L Total Protein 6.6 (6.3-8.2) g/dL Albumin 3.7 (3.5-5.1) g/dL Urine Color Yellow (Yellow) Urine Appearance Cloudy H (Clear) Urine pH 5.5 (5.0-9.0) Ur Specific [place] 1.013 (1.001-1.035) Urine Protein Negative (Negative) mg/dL Urine Glucose (UA) Negative (Negative) mg/dL Urine Ketones Negative (Negative) mg/dL Ur Blood (Man) 3+ H (Negative) Urine Nitrate Negative (Negative) Urine Bilirubin Negative (Negative) Urine Urobilinogen 0.2 (<2.0) mg/dL Leukocyte Esterase Rfl Negative (Negative) EVELINA/UL Urine RBC >100 H (0-2) /hpf Urine WBC 0-5 (0-3) /hpf Ur Squamous Epith Cells None seen (Few) /hpf Urine Bacteria None seen /hpf Urine Casts 0-2 POC Urine HCG, Qual Negative (Negative) C. trachomatis (PCR) (NOT DETECTE) N. gonorrhoeae (PCR) (NOT DETECTE) T. vaginalis (PCR) (NOT DETECTE) 11/20/24 Range/Units 15:11 WBC (4.5-10.0) K/mm3 RBC (4.2-5.4) M/mm3 Hgb (12.0-15.0) g/dL Hct (37.0-47.0) % MCV (80-100) fl MCH (26-34) pg MCHC (32-36) g/dl RDW (11.5-14.5) % Plt Count (150-375) k/mm3 MPV (7.4-10.4) fl Immature Gran % (Auto) (0-0.5) % Neut % (Auto) (45.5-73.1) % Lymph % (Auto) (18.3-44.2) % [place] % (Auto) (2.6-8.5) % Eos % (Auto) (0-4.4) % Baso % (Auto) (0.2-1.2) % Lymph # (Auto) (0.9-3.2) K/mm3 [place] # (Auto) (0.1-0.6) K/mm3 Eos # (Auto) (0-0.3) K/mm3 Baso # (Auto) (0.0-0.1) K/mm3 Abs Immat Gran (auto) (0.00-0.031) K/mm3 Absolute Neuts (auto) (1.3-6.7) K/mm3 Absolute Nucleated RBC (0.0-0.012) K/mm3 Nucleated RBC % (0.0-0.2) % PT (11.1-14.7) Seconds INR APTT (22.3-36.8) Seconds Sodium (137-145) mmol/L Potassium (3.4-5.0) mmol/L Chloride (98-107) mmol/L Carbon Dioxide (22-30) mmol/L Anion Gap (4-12) mmol/L BUN (7-17) mg/dL Creatinine (0.7-1.0) mg/dL Estim Creat Clear Calc ml/min Estimated GFR (59 - ) Glucose (65-110) mg/dL Calcium (8.4-10.2) mg/dL Total Bilirubin (0.2-1.3) mg/dL AST (14-36) U/L ALT (6-35) U/L Alkaline Phosphatase (38-126) U/L Total Protein (6.3-8.2) g/dL Albumin (3.5-5.1) g/dL Urine Color (Yellow) Urine Appearance (Clear) Urine pH (5.0-9.0) Ur Specific [place] (1.001-1.035) Urine Protein (Negative) mg/dL Urine Glucose (UA) (Negative) mg/dL Urine Ketones (Negative) mg/dL Ur Blood (Man) (Negative) Urine Nitrate (Negative) Urine Bilirubin (Negative) Urine Urobilinogen (<2.0) mg/dL Leukocyte Esterase Rfl (Negative) EVELINA/UL Urine RBC (0-2) /hpf Urine WBC (0-3) /hpf Ur Squamous Epith Cells (Few) /hpf Urine Bacteria /hpf Urine Casts POC Urine HCG, Qual (Negative) C. trachomatis (PCR) Not detected (NOT DETECTE) N. gonorrhoeae (PCR) Not detected (NOT DETECTE) T. vaginalis (PCR) Not detected (NOT DETECTE) <Jesús Koch MD - Last Filed: 11/20/24 19:03> Discharge Plan Discharge Clinical Impression: Hypochromic microcytic anemia, Dysfunctional uterine bleeding, Elevated INR <Shweta Vallejo PA-C - Last Filed: 11/20/24 15:41> Patient Disposition: Home <Shweta Vallejo PA-C - Last Filed: 11/20/24 15:41> Condition: Stable <JOVI Rushing Last Filed: 11/20/24 15:41> Instructions: Antibiotic Form, Abnormal (Dysfunctional) Uterine Bleeding (ED), Anemia (ED), Elevated INR (ED) <Shweta Vallejo PA-C - Last Filed: 11/20/24 15:41> Additional Instructions: Your evaluated in the emergency department for vaginal bleeding after taking Plan B. your hemoglobin was found to be low consistent with anemia at 9.3. Please take iron as directed. Your INR was also elevated to 3.7. Please hold her warfarin dose until you talk to your fire medic tomorrow regarding further management. Please take Tylenol as needed for pain or discomfort. Return to the emergency department if your bleeding through 1 pad or tampon an hour, you develop chest pain or shortness of breath, lightheadedness or loss of consciousness, fever or other concerning symptoms. <Shweta Vallejo PA-C - Last Filed: 11/20/24 15:41> Patient Language: Finnish <Shweta Vallejo PA-C - Last Filed: 11/20/24 15:41> Prescriptions: New ferrous sulfate 325 mg (65 mg iron) tablet 325 mg PO DAILY Qty: 30 0RF No Action warfarin 3 mg tablet 8 mg PO DAILY cholecalciferol (vitamin D3) [Vitamin D3] 50 mcg (2,000 unit) capsule 50 mcg PO DAILY epinephrine 0.3 mg/0.3 mL auto-injector <Shweta Vallejo PA-C - Last Filed: 11/20/24 15:41> Follow-up/Referrals: Kimberly,LINDA Whitehead [Primary Care Provider] - Gio Marie MD [Physician] - <Shweta Vallejo PA-C - Last Filed: 11/20/24 15:41>
[2024-11-20 15:15] LABS: Add Urine Microscopic? YES; Appearance Urine Cloudy (Clear); Glucose Urine UA Negative (Negative); Leukocyte Esterase Ur Negative LEU/UL (Negative); Nitrate Urine Negative (Negative); Non Pathogenic Casts 0-2; Specific Grav Ur 1.013 (1.001-1.035)
[2024-11-20] MEDS: SODIUM CHLORIDE 0.9% IV 1,000 ML 999 ML IV CONT (15:33)
[2024-11-20] MEDS: ACETAMINOPHEN 500 MG TABLET 1000 MG PO (15:34)
[2024-11-20 16:23] LABS: Trichomonas Vag PCR NOT DETECTED (NOT DETECTE)
== END 2024-11-20 16:15 | disposition home or self-care (01) ==
PROVIDERS: Emergency Medicine; Emergency Provider Physician Assistant; PCP Physician Assistant
DX: N93.9 Abnormal uterine and vaginal bleeding, unspecified (principal); Z86.711 Personal history of pulmonary embolism; Z79.01 Long term (current) use of anticoagulants; F17.210 Nicotine dependence, cigarettes, uncomplicated; F12.90 Cannabis use, unspecified, uncomplicated
CPT/HCPCS: 36415; 80053; 81001; 81025; 85025; 85610; 85730; 87491; 87591; 87661; 96360; 99284; A9270; J7030

== ENCOUNTER 2025-02-24 12:36 | Outpatient (CLI) | payer OTHER, SELFPAY ==
--- NOTE | 2025-02-24 12:45 | ECHO_ITS ---
Patient Info Name: Varsha Weaver Age: 49 years : 1975 Gender: Female Ht: 68 in Wt: 218 lbs BSA: 2.21 m2 HR: 58 bpm BP: 147 / 96 mmHg Heart Rhythm: Sinus Rhythm Technical Quality: Good Exam Date: 02/24/2025 12:54 PM Patient Status: O Admit Date: 02/24/2025 Exam Type: CA echo dop color flow w con Complete two-dimensional, color flow and Doppler transthoracic echocardiogram is performed. Loop Tacker: Mai Campa Attending Provider: Caden Norwood DO Summary 1. Complete two-dimensional, color flow and Doppler transthoracic echocardiogram is performed. 2. Left ventricular chamber dimension is normal. 3. Left ventricular systolic function is normal, estimated at 60-65. 4. The left ventricular diastolic function is abnormal. 5. E/e' 11 is mildly elevated. 6. There is trace mitral valve regurgitation. Left Ventricle E/e' 11 is mildly elevated. Left ventricular chamber dimension is normal. Left ventricular systolic function is normal, estimated at 60-65. The left ventricular diastolic function is abnormal. Right Ventricle Right ventricular chamber dimension is normal. Right ventricular systolic function is normal and with normal TAPSE 2.3 cm. Left Atria Left atrial chamber dimension is normal. Right Atria Right atrial chamber dimension is normal. Aortic Valve The aortic valve is trileaflet. There is no aortic valve stenosis. There is no aortic valve regurgitation. Pulmonic Valve There is no pulmonic regurgitation. Mitral Valve There is no mitral valve stenosis. There is trace mitral valve regurgitation. Tricuspid Valve There is no tricuspid valve regurgitation. Pericardium/Pleural There is no pericardial effusion. Inferior Vena Cava Normal inferior vena cava with >50% collapse upon inspiration consistent with normal right atrial pressure, 5 mmHg. Aorta The aortic root size at the sinus of Valsalva is normal. Left Ventricular Outflow Tract Name Value Normal LVOT 2D LVOT Diameter 2.0 cm LVOT Doppler LVOT Peak Velocity 108 cm/s LVOT Peak Gradient 5 mmHg LVOT Mean Gradient 2 mmHg LVOT VTI 22 cm LVOT VTI/AV VTI Ratio 0.8 LVOT Stroke Volume 69 ml LVOT CO 4.3 l/min LVOT CI 1.9 l/min/m2 Pulmonic Valve Name Value Normal RVOT Doppler RVOT Peak Velocity 61 cm/s RVOT Peak Gradient 2 mmHg PV Doppler PV Peak Velocity 90 cm/s PV Peak Gradient 3 mmHg Mitral Valve Name Value Normal MV Diastolic Function MV E Peak Velocity 85 cm/s MV A Peak Velocity 72 cm/s MV E/A 1.2 MV Decel Time (PW) 212 ms MV Annular TDI MV E/e' (Septal) 10.7 MV E/e' (Lateral) 12.6 MV E/e' (Average) 11.6 Tricuspid Valve Name Value Normal Estimated PAP/RSVP RA Pressure 5 mmHg <=5 TV Annular TDI TV Lateral Mariel s' Velocity 13.0 cm/s >=9.5 Aorta Name Value Normal Ascending Aorta Ao Root Diameter (MM) 3.5 cm Ao Root Diam Index (MM) 1.6 cm/m2 Aortic Valve Name Value Normal AV Doppler AV Peak Velocity 118 cm/s AV Peak Gradient 6 mmHg AV Mean Gradient 3 mmHg AV VTI 26 cm AV Area (Cont Eq VTI) 2.6 cm2 >=3.0 AV Area (Cont Eq Tim) 2.9 cm2 AV DI (Tim) 0.92 AV Regurgitation 2D LVOT Area 3.2 cm2 Ventricles Name Value Normal LV Dimensions 2D/MM IVS Diastolic Thickness (2D) 0.8 cm 0.6-1.0 LVID Diastole (2D) 5.0 cm 3.8-5.2 LVIW Diastolic Thickness (2D) 0.8 cm 0.6-0.9 LVID Systole (2D) 3.6 cm 2.2-3.5 LVOT Diameter 2.0 cm LV Mass (2D Cubed) 146.79 g 67.00-162.00 LV Mass Index (2D Cubed) 66 g/m2 43-95 Relative Wall Thickness (2D) 0.34 <=0.42 LV Fractional Shortening/Ejection Fraction 2D/MM LV Fractional Shortening (2D) 29 % 27-45 LV EF (2D Teichholz) 55 % LV Diastolic Volume (4C MOD) 89 ml LV EF (4C MOD) 63 % LV Diastolic Volume (2C MOD) 108 ml LV EF (2C MOD) 69 % LV Diastolic Volume (BP MOD) 98 ml 46-106 LV Diastolic Volume Index (BP MOD) 44 ml/m2 29-61 LV Systolic Volume (BP MOD) 34 ml 14-42 LV Systolic Volume Index (BP MOD) 15 ml/m2 8-24 LV EF (BP MOD) 66 % 54-74 LV Diastolic Length (4C) 8.2 cm LV Systolic Length (4C) 6.4 cm LV Stroke Volume (4C MOD) 56 ml Atria Name Value Normal LA Dimensions LA Dimension (MM) 4.0 cm 2.7-3.8 LA Volume (4C A-L) 52 ml LA Volume (BP A-L) 60 ml RA Dimensions RA Area (4C) 16.3 cm2 <=18.0 Report Signatures
== END 2025-02-24 12:37 | disposition home or self-care (01) ==
PROVIDERS: Visit Provider Internal Medicine Cardiovascular Disease
DX: R06.09 Other forms of dyspnea (principal)
CPT/HCPCS: 93306

== ENCOUNTER 2025-03-03 16:43 | Emergency (ER) | payer OTHER, SELFPAY ==
[2025-03-03 16:50] VITALS: BP 143/85; PULSE 64; RESP 14; TEMP 37.1; O2SAT 100
--- NOTE | 2025-03-03 16:53 | ED_ITS ---
HPI - Extremity Problem General Chief complaint: Extremity Problem,Nontraumatic Stated complaint: Left Knee/Leg Pain Time Seen by Provider: 03/03/25 16:54 Source: patient, RN notes reviewed and old records reviewed Mode of arrival: ambulatory Limitations: no limitations History of Present Illness HPI Narrative: 49-year-old female presents to the [facility] the [facility] with 2 day history of knee pain, swelling noted to the upper medial aspect. States she has either bumped it or her 50 lb dog hit it, not sure the exact injury. Reports that she called pain management was told to come to the urgent care to make sure her knee is okay. Full range of motion. Onset (ago): day(s) (2-3) Related Data Home Medications ?Medication ?Instructions ?Recorded ?Confirmed ?Last Taken ?Type warfarin 3 mg tablet 8 mg PO DAILY 02/10/2203/0106/27/23 20:00 History epinephrine 0.3 mg/0.3 mL 11/20/24 03/01/25 Unknown H istory injection, auto-injector Allergies Allergy/AdvReac Type Severity Reaction Status Date / Time bee venom protein (honey Allergy Severe Itching Verified 03/03/25 16:44 bee) (bees) amoxicillin Allergy Intermediate Rash Verified 03/03/25 16:44 azithromycin (From Zithromax) Allergy Intermediate Rash Verified 03/03/25 16:44 Bleach (Sodium Hypochlorite) Allergy Intermediate Rash Verified 03/03/25 16:44 adhesive tape Allergy Rash Verified 03/03/25 16:44 morphine Allergy Itching Verified 03/03/25 16:44 oxycodone (From Percocet) Allergy Itching Verified 03/03/25 16:44 Review of Systems 2 Review of Systems: All systems reviewed & are unremarkable except as noted in HPI and below Constitutional: Constitutional: Reports no additional constitutional complaints Cardiovascular: Cardiovascular: Reports no additional cardiovascular complaints, Denies chest pain and Denies dyspnea Respiratory: Respiratory: Reports no additional respiratory complaints, Denies chest congestion, Denies cough and Denies dyspnea Musculoskeletal: Musculoskeletal: Reports as per HPI, Reports arthralgias (left knee), Reports joint swelling (left knee), Denies limited range of motion, Denies muscle weakness and Denies neck pain Integumentary/Breasts: Skin/Breast: Reports system reviewed and no additional complaints, except as docu PMFSH Past Medical History Medical History Myofascial pain Lumbar stenosis Lumbar spondylosis Lumbar radiculopathy Dorsalgia Cervicalgia Cervical spondylosis Cervical spinal stenosis Pulmonary embolism 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 Lipoma of extremity Removed from RT thigh Smoker Diabetes Patient says she does not take any medications anymore due to controlled with diet Hypertension Patient says she does not take any medications anymore due to controlled with diet Surgical History Surgical History Status post cervical spinal fusion History of carpal tunnel surgery bilateral History of spinal fusion 09/2017-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 Family History Family History Father Hypertension Mother Hypertension Diabetes mellitus Social History Social History Smoking packs per day: 0.5 Smoking cigarettes per day: 10.0 Years smoked: 25 Smoking pack-years: 12.50 Smoking status: Current every day smoker Tobacco type: cigarettes Second hand tobacco smoke exposure: No Alcohol intake: current Drinks per week: 1 Substance use: current Substance use type: marijuana Other substance usage details: medical marijuana Last use: 06/27/23 Do You Feel Safe in your Home?: Yes Lack of Transportation: No Lack of Food: Never True Current Housing: I Have Housing Concerned About Future Housing: No Difficulty Paying Gas/Electric Bills: No Difficulty Paying for Meds: No Currently Unemployed: YES Education: Bachelor's Degree Difficulty w/ Childcare or Family Care: No Living arrangements: with family Occupation/Education: unemployed Gender identity (if verbalized by the patient): Female Spiritual care concerns: No Comments At the time of my signature, I reviewed and agree with the nursing past medical, surgical, social, and family history. There is no relevant family history pertinent to the patient complaint. Exam 2 Const: General: cooperative, no acute distress, well developed, alert and well nourished Nutritional Appearance: well nourished O rientation/consciousness: patient oriented x3 Limitations: no limitations HENMT: Head: normal to inspection Eyes: General: appearance normal, both eyes and all related structures Neck: Neck: normal visual inspection, full ROM, no lymphadenopathy and no meningeal signs Cardio: Rate: regular rate Skin: General skin exam: normal color and no rashes or lesions noted Neuro: General: patient oriented x3, moves all extremities and no meningeal signs Cognition (Neuro): normal cognition Speech: normal speech Gait exam (Neuro): Normal gait present Extrem: General: normal to inspection, full ROM and capillary refill normal Left lower extremity: knee Details: tenderness, swelling (upper medial swelling) and normal ROM; no abrasions, no lacerations, no crepitus, no foreign bodies, no penetrating wound, no deformity and no unusual warmth, lower leg Details: normal to inspection and no edema; no erythema and no tenderness and ankle Details: normal to inspection and no edema Knee images: 1. Swelling, effusion. Full range of motion. Psych: Appearance: grossly normal and well kempt Mental Status: mental status grossly normal Speech and movement: Normal speech and movement present and Clear speech present Affect: normal affect Attitude: cooperative Course Course Level of Care: Express Care Visit Vital Signs Vital signs: Vital Signs Temperature 98.8 F 03/03/25 16:50 Pulse Rate 64 03/03/25 16:50 Respiratory Rate 14 03/03/25 16:50 Blood Pressure 143/85 H 03/03/25 16:50 Pulse Oximetry 100 03/03/25 16:50 Temperature 98.8 F 03/03/25 16:50 Pulse Rate 64 03/03/25 16:50 Respiratory Rate 14 03/03/25 16:50 Blood Pressure 143/85 H 03/03/25 16:50 Pulse Oximetry 100 03/03/25 16:50 Reviewed MDM - Extremity (Nontraumatic) MDM Narrative Medical decision making narrative: Patient sitting comfortably in exam room. Patient is nontoxic, vitals are stable. Patient presents with swelling to the upper medial aspect of the knee after bumping it or her dog hit it. Patient reports that she put called pain management who referred her to the urgent care for an x-ray to make sure ?nothing is torn. ? Patient with full range of mom Unfortunately x-ray is not available at the [place] location, offered to send to [facility] for an x-ray multiple times. Patient declined stating that she will follow-up on Thursday with pain management. Attempted to reassure patient that unlikely a fracture without significant trauma. States even after a light bump you can have inflammation of the bursa causing the mild effusion. Attempted to reassure that the body reabsorbs of fluid over time. Patient again stated she will follow up on Thursday with pain management for an evaluation Patient on Coumadin, asking for prescription for ibuprofen, educated patient on those medication should never be taken together. Discharge instructions reviewed with patient, as well as provided in writing per nursing staff. The instructions also include specific and strict return/GO TO THE ER as well as f/u information. All questions have been answered, and the patient deny any further questions with discharge and discharge plan. Some parts of this dictation were generated by voice recognition software and may contain typographical and/or grammatical inaccuracies. Differential Diagnosis Differential diagnosis: Likely other (Knee effusion, contusion, osteoarthritis) Critical Care Time Critical Care Time Critical Care Time: No Discharge Plan Discharge Clinical Impression: Pain and swelling of left knee Patient Disposition: Home Condition: Stable Instructions: Antibiotic Form, Swollen Knee Joint (ED) Additional Instructions: Unfortunately x-ray was not available today in clinic at [place]. Ice should be applied to help reduce swelling. It can be used for 20 to 30 minutes, every 2-3 hours while awake. Do not apply ice directly to your skin. a knee brace or ghassan-wraps will help support your injured knee Take Tylenol 650mg every 6-8 hours as needed for pain Follow-up with pain management as already scheduled on Thursday Please schedule a follow-up visit with your personal physician for further evaluation and treatment within 2 weeks especially if symptoms persist. For new or worsening symptoms go directly to the emergency room Patient Language: Algerian Prescriptions: No Action warfarin 3 mg tablet 8 mg PO DAILY epinephrine 0.3 mg/0.3 mL auto-injector cholecalciferol (vitamin D3) [Vitamin D3] 50 mcg (2,000 unit) capsule 50 mcg PO WEEKLY Qty: 12 1RF Follow-up/Referrals: Chio Yousif, [employer]TING [employer]PER[employer] [Primary Care Provider, Internal Medicine] - 1 Week Time of Disposition: 17:12
== END 2025-03-03 17:17 | disposition home or self-care (01) ==
PROVIDERS: Emergency Provider Nurse Practitioner; PCP Nurse Practitioner
DX: M25.562 Pain in left knee (principal); M25.462 Effusion, left knee; F17.210 Nicotine dependence, cigarettes, uncomplicated; E11.9 Type 2 diabetes mellitus without complications; I10 Essential (primary) hypertension; M48.02 Spinal stenosis, cervical region; M48.061 Spinal stenosis, lumbar region without neurogenic claudication; M47.26 Other spondylosis with radiculopathy, lumbar region; M47.812 Spondylosis without myelopathy or radiculopathy, cervical region; Z86.718 Personal history of other venous thrombosis and embolism; Z86.2 Personal history of diseases of the blood and blood-forming organs and certain disorders involving the immune mechanism; Z79.01 Long term (current) use of anticoagulants
CPT/HCPCS: 99212; G0463